=== PATIENT | female | born 1935 | race African-American/Black ===

== ENCOUNTER 2018-01-03 23:07 | Emergency (ER) | payer OTHER ==
[2018-01-03 23:44] LABS: ADD MAN DIFF? NO
[2018-01-03 23:55] LABS: BASO % 1 % (0-3); EOS # 0.3 x10^3/uL (0.0-0.7); EOS % 6 % (0-3); HEMATOCRIT 30.2 % (36.0-47.0); HEMOGLOBIN 9.6 g/dL (12.0-15.5); LYMPH # 2.4 x10^3/uL (1.0-4.8); LYMPH % 46 % (24-48); MEAN CORPUSCULAR HEMOGLOBIN 26 pg (25-35); MEAN CORPUSCULAR HGB CONC 32 g/dL (31-37); MEAN CORPUSCULAR VOLUME 81 fL (79-100); MONO # 0.5 x10^3/uL (0.0-1.1); MONO % 10 % (0-9); NEUT % 38 % (31-73); PLATELET COUNT 386 x10^3/uL (140-400); RED BLOOD COUNT 3.74 x10^6/uL (3.50-5.40); RED CELL DISTRIBUTION WIDTH 20.9 % (11.5-14.5); WHITE BLOOD COUNT 5.2 x10^3/uL (4.0-11.0)
[2018-01-03 23:56] LABS: INR 1.1 (0.8-1.1); PROTHROMBIN TIME PATIENT 13.2 SEC (11.7-14.0)
[2018-01-04] LABS: ANION GAP 12 (6-14); BLOOD UREA NITROGEN 15 mg/dL (7-20); BUN/CREATININE RATIO 17 (6-20); CALCIUM 9.4 mg/dL (8.5-10.1); CARBON DIOXIDE 27 mmol/L (21-32); CHLORIDE 105 mmol/L (98-107); CREATININE 0.9 mg/dL (0.6-1.0); GFR 72.5; GLUCOSE 123 mg/dL (70-99); SODIUM 144 mmol/L (136-145)
[2018-01-04 00:06] LABS: ALBUMIN 3.6 g/dL (3.4-5.0); ALBUMIN/GLOBULIN RATIO 0.7 (1.0-1.7); ALK PHOS 99 U/L (46-116); ALT (SGPT) 25 U/L (14-59); AST (SGOT) 24 U/L (15-37); LIPASE 74 U/L (73-393); TOTAL BILIRUBIN 0.2 mg/dL (0.2-1.0); TOTAL PROTEIN 9.1 g/dL (6.4-8.2)
[2018-01-04 00:09] LABS: TROPONINI < 0.017 ng/mL (0.000-0.055)
[2018-01-04 00:14] LABS: NT-PRO BNP 631 pg/mL (0-449)
[2018-01-04 01:16] LABS: ANISOCYTOSIS MOD; PLT ESTIMATE ADEQUATE (ADEQUATE); POLYCHROMASIA SLIGHT
[2018-01-04 02:22] LABS: TROPONINI < 0.017 ng/mL (0.000-0.055)
== END 2018-01-04 03:31 | disposition home or self-care (01) ==
LOC: ER 01-04 03:31
DX: R07.9 Chest pain, unspecified (principal); F41.9 Anxiety disorder, unspecified; I10 Essential (primary) hypertension; E11.9 Type 2 diabetes mellitus without complications; K21.9 Gastro-esophageal reflux disease without esophagitis; E78.00 Pure hypercholesterolemia, unspecified; Z95.0 Presence of cardiac pacemaker
CPT/HCPCS: 36415; 71045; 80053; 83690; 83880; 84484; 85025; 85610; 93005; 93971; 99285-25

== ENCOUNTER 2018-02-06 12:10 | Observation (INO) | payer OTHER ==
[2018-02-06 12:29] LABS: POC GLUCOSE 185 mg/dL (70-99)
[2018-02-06 12:38] LABS: ADD MAN DIFF? NO
[2018-02-06 12:40] LABS: BASE EXCESS ABG -1 mmol/L (-3-3); HCO3 ABG 24 mmol/L (21-28); PCO2 ABG 36 mmHg (35-46); PH ABG 7.43 (7.35-7.45); PO2 ABG 77 mmHg (65-108); SAT O2 ABG 93 % (92-99)
[2018-02-06 12:43] LABS: FIO2 ABG 21
[2018-02-06 12:53] LABS: ANION GAP 7 (6-14); BLOOD UREA NITROGEN 16 mg/dL (7-20); BUN/CREATININE RATIO 12 (6-20); CALCIUM 9.2 mg/dL (8.5-10.1); CARBON DIOXIDE 25 mmol/L (21-32); CHLORIDE 104 mmol/L (98-107); CREATININE 1.3 mg/dL (0.6-1.0); GFR 47.5; GLUCOSE 197 mg/dL (70-99); SODIUM 136 mmol/L (136-145)
[2018-02-06 12:59] LABS: ALBUMIN 3.3 g/dL (3.4-5.0); ALBUMIN/GLOBULIN RATIO 0.6 (1.0-1.7); ALK PHOS 76 U/L (46-116); ALT (SGPT) 13 U/L (14-59); AST (SGOT) 15 U/L (15-37); BASO % 1 % (0-3); EOS # 0.1 x10^3/uL (0.0-0.7); EOS % 2 % (0-3); HEMATOCRIT 28.8 % (36.0-47.0); HEMOGLOBIN 9.1 g/dL (12.0-15.5); INR 1.1 (0.8-1.1); LYMPH # 1.6 x10^3/uL (1.0-4.8); LYMPH % 32 % (24-48); MEAN CORPUSCULAR HEMOGLOBIN 26 pg (25-35); MEAN CORPUSCULAR HGB CONC 32 g/dL (31-37); MEAN CORPUSCULAR VOLUME 81 fL (79-100); MONO # 0.3 x10^3/uL (0.0-1.1); MONO % 6 % (0-9); NEUT # 2.9 x10^3uL (1.8-7.7); NEUT % 60 % (31-73); PLATELET COUNT 428 x10^3/uL (140-400); PROTHROMBIN TIME PATIENT 13.6 SEC (11.7-14.0); RED BLOOD COUNT 3.56 x10^6/uL (3.50-5.40); TOTAL BILIRUBIN 0.3 mg/dL (0.2-1.0); TOTAL PROTEIN 8.5 g/dL (6.4-8.2); WHITE BLOOD COUNT 4.9 x10^3/uL (4.0-11.0)
[2018-02-06 13:00] LABS: TROPONINI < 0.017 ng/mL (0.000-0.055)
[2018-02-06 13:09] LABS: NT-PRO BNP 578 pg/mL (0-449)
[2018-02-06 13:09] LABS: CKMB MASS < 0.5 ng/mL (0.0-3.6); CREATINE KINASE 80 U/L (26-192)
[2018-02-06 13:15] LABS: PHOSPHORUS 2.9 mg/dL (2.6-4.7)
[2018-02-06 13:15] LABS: MAGNESIUM 1.6 mg/dL (1.8-2.4)
[2018-02-06] MEDS: ASPIRIN CHEWABLE 81 MG TABLET. PO ×3 (13:26)
[2018-02-06] MEDS: MAGNESIUM SULFATE 1GM 100 ML IV ×3 (13:57)
[2018-02-06] MEDS: LIDO:MAALOX 1:1 20 ML SINGLE DOSE. PO ×3 (15:13)
[2018-02-06 16:11] LABS: CHOLESTEROL 116 mg/dL (0-200); HDLC 37 mg/dL (40-60); LDLC 55 mg/dL (0-100); NON-HDL CHOLESTEROL 79 mg/dL (0-129); TRIGLYCERIDES 118 mg/dL (0-150); VLDLC 24 mg/dL (0-40)
[2018-02-06 16:17] LABS: CHOLESTEROL/HDL RATIO 3.1
[2018-02-06] MEDS ORDERED: hydrALAZINE 20 MG/ML VIAL. IVP ×3 (17:00)
[2018-02-06] MEDS: ISOSORBIDE MONONITRATE ER 30 MG TAB.ER.24H PO ×3 (18:00)
[2018-02-06] MEDS: CARVEDILOL 12.5 MG TABLET. PO ×3 (18:00)
[2018-02-06 18:48] LABS: TROPONINI < 0.017 ng/mL (0.000-0.055)
[2018-02-06] MEDS ORDERED: NITROGLYCERIN SUBLINGUAL 0.4 MG BOTTLE OF 25. SL ×3 (19:45)
[2018-02-06] MEDS: ATORVASTATIN CALCIUM 10 MG TABLET. PO ×3 (20:11)
[2018-02-06] MEDS: TICAGRELOR 90 MG TABLET. PO ×3 (20:12)
[2018-02-06] MEDS: MIRTAZAPINE 15 MG TABLET PO ×3 (20:12)
[2018-02-06] MEDS: ACETAMINOPHEN 325 MG TABLET. PO ×3 (20:12)
[2018-02-06] MEDS ORDERED: SIMVASTATIN 10 MG TABLET PO ×3 (21:00)
[2018-02-06 21:13] LABS: % SAT IRON 6 % (15-34); IRON,SERUM 19 ug/dL (50-170)
[2018-02-06 21:19] LABS: FREE T4 0.78 ng/dL (0.76-1.46); TROPONINI < 0.017 ng/mL (0.000-0.055)
[2018-02-07] MEDS ORDERED: ASPIRIN CHEWABLE 81 MG TABLET. PO ×3 (09:00)
[2018-02-07] MEDS: LEVOTHYROXINE SODIUM 100 MCG in IV NORMAL SALINE 50ML 5 ML IVP ×3 (10:11)
[2018-02-07] MEDS: CARVEDILOL 12.5 MG TABLET. PO ×3 (10:12)
[2018-02-07] MEDS: LISINOPRIL 5 MG TABLET. PO ×3 (10:12)
[2018-02-07] MEDS: CITALOPRAM 20 MG TABLET. PO ×3 (10:12)
[2018-02-07] MEDS: PANTOPRAZOLE 40 MG TABLET.DR. PO ×3 (10:12)
[2018-02-07] MEDS: ASPIRIN ENTERIC COATED 81 MG TABLET.DR. PO ×3 (10:12)
[2018-02-07] MEDS: TICAGRELOR 90 MG TABLET. PO ×3 (10:13)
[2018-02-07] MEDS: VERAPAMIL SR 120 MG TABLET.ER. PO ×3 (10:13)
[2018-02-07] MEDS: metFORMIN 500 MG TABLET PO ×3 (10:13)
[2018-02-07] MEDS: ISOSORBIDE MONONITRATE ER 30 MG TAB.ER.24H PO ×3 (10:13)
[2018-02-07] MEDS: DOCUSATE SODIUM 100 MG CAPSULE. PO ×3 (11:29)
== END 2018-02-07 12:02 | disposition home or self-care (01) ==
LOC: ER 12:10 → 5 NORTH 14:30
PROVIDERS: Family Medicine
DX: R07.89 Other chest pain (principal); I25.10 Atherosclerotic heart disease of native coronary artery without angina pectoris; I10 Essential (primary) hypertension; E78.5 Hyperlipidemia, unspecified; K21.9 Gastro-esophageal reflux disease without esophagitis; F32.9 Major depressive disorder, single episode, unspecified; M19.90 Unspecified osteoarthritis, unspecified site; I65.23 Occlusion and stenosis of bilateral carotid arteries; E11.9 Type 2 diabetes mellitus without complications; E83.42 Hypomagnesemia; E03.9 Hypothyroidism, unspecified; E66.01 Morbid (severe) obesity due to excess calories; Z79.82 Long term (current) use of aspirin; Z88.8 Allergy status to other drugs, medicaments and biological substances; Z68.38 Body mass index [BMI] 38.0-38.9, adult; Z95.0 Presence of cardiac pacemaker
CPT/HCPCS: 36415; 36600; 70450; 71045; 80053; 80061; 82553; 82805; 82962; 83540; 83550; 83735; 83880; 84100; 84439; 84443; 84484; 85025; 85610; 93005; 93306; 93880; 96365; 96375; 99285-25; G0378; G0379; J2060; J3475

== ENCOUNTER → 2018-02-19 | Outpatient (CLI) | payer OTHER ==
[2018-02-07 10:58] VITALS: BP 132/84
[~2018-02-19] MED LIST: ASPI-630 PO; CARV12.52 PO; ESCITALOPRAM OX10 MG PO; FERR325T14 PO; ISOS30TA4 PO; LISI-338 PO; LOVA40TA2 PO; METF500T16 PO; MIRT30TA3 PO; NITR0.4T SL; PANT20TA2 PO; SIMV10TA3 PO; TICA90TA PO; VERA240C2 PO
== END | disposition home or self-care (01) ==
LOC: PCVCCLINIC 14:16
PROVIDERS: ATTEND Internal Medicine
DX: I25.10 Atherosclerotic heart disease of native coronary artery without angina pectoris (principal); R06.00 Dyspnea, unspecified; I10 Essential (primary) hypertension; Z95.0 Presence of cardiac pacemaker; Z79.82 Long term (current) use of aspirin; Z79.899 Other long term (current) drug therapy; Z79.84 Long term (current) use of oral hypoglycemic drugs
CPT/HCPCS: G0463

== ENCOUNTER 2021-04-21 12:31 | Inpatient (IN) | payer OTHER ==
[~2021-04-21] VITALS: Ht 160 cm; Wt 74.6 kg
[~2021-04-21 12:31] MED LIST changes: +CARV12.511 PO; -CARV12.52 PO; -ISOS30TA4 PO; +ISOS30TA68 PO; -LISI-338 PO; +LISI-517 PO; +MIRT-8 PO; -MIRT30TA3 PO; -NITR0.4T SL; +NITR0.4T24 SL; +SIMV10TA15 PO; -SIMV10TA3 PO
[2021-04-21 13:00] LABS: BASO % 1 % (0-3); EOS # 0.2 x10^3/uL (0.0-0.7); EOS % 5 % (0-3); HEMATOCRIT 35.6 % (36.0-47.0); HEMOGLOBIN 11.9 g/dL (12.0-15.5); LYMPH # 2.7 x10^3/uL (1.0-4.8); LYMPH % 51 % (24-48); MEAN CORPUSCULAR HEMOGLOBIN 30 pg (25-35); MEAN CORPUSCULAR HGB CONC 33 g/dL (31-37); MEAN CORPUSCULAR VOLUME 91 fL (79-100); MONO # 0.5 x10^3/uL (0.0-1.1); MONO % 9 % (0-9); NEUT # 1.8 x10^3/uL (1.8-7.7); NEUT % 35 % (31-73); PLATELET COUNT 227 x10^3/uL (140-400); RED BLOOD COUNT 3.91 x10^6/uL (3.50-5.40); RED CELL DISTRIBUTION WIDTH 16.3 % (11.5-14.5); WHITE BLOOD COUNT 5.3 x10^3/uL (4.0-11.0)
--- NOTE | 2021-04-21 13:04 | RAD ---
EXAM: Head CT without contrast. HISTORY: Slurred speech. Altered mental status. Code stroke. TECHNIQUE: Computed tomographic images of the head were obtained without contrast. *One or more of the following individualized dose reduction techniques were utilized for this examina tion: 1. Automated exposure control. 2. Adjustment of the mA and/or kV according to patient size. 3. Use of iterative reconstruction technique. COMPARISON: 02/06/2018. FINDINGS: There is no acute or subacute extra-axial or intraparenchymal hemorrhage. There is no mass effect or midline shift. There is no hydrocephalus. There are areas of decreased attenuation within the cerebral white matter, nonspecific and likely rel ated to chronic small vessel disease. There is cerebral volume loss. The visualized portions of the orbits, paranasal sinuses and mastoid air cells are unremarkable. No s uspicious calvarial lesion is seen. There is a stable likely empty or partially empty prominent sella . IMPRESSION: 1. No acute intracranial finding. Note is made that MRI is more sensitive for acute infarction. 2. Bilateral cerebral white matter changes, most commonly due to chronic small vessel disease in ileana ents of this age. 3. Cerebral volume loss. Findings were discussed with Dr. Cook in the ED at 1300 hours on 04/21/2021. FOR INTERNAL CODING PURPOSES RESULT CODE: (C) Electronically signed by: Debi Bryson MD (04/21/2021 1:01 PM) [id number]
[2021-04-21 13:13] LABS: CALCIUM 9.9 mg/dL (8.5-10.1); CREATININE 1.4 mg/dL (0.6-1.0); GFR 43.2; PROTHROMBIN TIME PATIENT 13.5 SEC (11.7-14.0)
[2021-04-21 13:18] LABS: ALBUMIN 3.4 g/dL (3.4-5.0); ALBUMIN/GLOBULIN RATIO 0.7 (1.0-1.7); TOTAL BILIRUBIN 0.3 mg/dL (0.2-1.0); TOTAL PROTEIN 8.3 g/dL (6.4-8.2)
--- NOTE | 2021-04-21 13:25 | PHYS DOC ---
Past Medical History Past Medical History: Anxiety, CAD, Depression, Diabetes-Type II, GERD, High Cholesterol, Hypertension, Other Additional Past Medical Histor: constipation Past Surgical History: Other Additional Past Surgical Histo: pacemaker, cardiac stents Smoking Status: Never Smoker Alcohol Use: None Drug Use: None General Adult EDM: Chief Complaint: ALTERED MENTAL STATUS HPI: HPI: Patient is a 85 year old female who was brought here by her daughter for evaluation not able to speak , confusion started at 11:30 AM. Her daughter stated that patient was on the phone talking normally, laughing, saying that her brother is dying because he was admitted to the hospital lately due to head injury. Patient was then crying, then not able to talk when her daughter asked her a question. She was trying to speak but she was just not able to get the words out. Patient's daughter then brought her here by private vehicle for evaluation. Patient was walking to her car on her power. 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 Patient then had a bleeding CVA in 2019. Patient has history of coronary artery disease, she is on Plavix. No injury today. Patient's daughter said she was urinating on herself. Review of Systems: Review of Systems: Not able to evaluate due to her condition. Heart Score: C/O Chest Pain: N/A Risk Factors: Risk Factors: DM, Current or recent (<one month) smoker, HTN, HLP, family history of CAD, obesity. Risk Scores: Score 0 - 3: 2.5% MACE over next 6 weeks - Discharge Home Score 4 - 6: 20.3% MACE over next 6 weeks - Admit for Clinical Observation Score 7 - 10: 72.7% MACE over next 6 weeks - Early Invasive Strategies Allergies: Allergies: Allergies Coded Allergies Type Severity Reaction Last Updated Verified morphine Adverse Reaction Mild NAUSEA/VOMITING 02/06/18 Yes Physical Exam: PE: Constitutional: Well developed, well nourished, no acute distress, non-toxic appearance. [] HENT: Normocephalic, atraumatic, bilateral external ears normal, oropharynx moist, no oral exudates, nose normal. [] Eyes: PERRLA, EOMI, conjunctiva normal, no discharge. [] Neck: Normal range of motion, no tenderness, supple, no stridor. [] Cardiovascular:Heart rate regular rhythm, no murmur [] Lungs & Thorax: Bilateral breath sounds clear to auscultation [] Abdomen: Bowel sounds normal, soft, no tenderness, no masses, no pulsatile masses. [] Skin: Warm, dry, no erythema, no rash. [] Back: No tenderness, no CVA tenderness. [] Extremities: No tenderness, no cyanosis, no clubbing, ROM intact, no edema. [] Neurologic: patient was awake, alert, moving all extremities but appeared weaker on the left side. Patient was not able to speak, was trying to speak not able to get the words out. Psychologic: patient was tearful. Current Patient Data: Labs: Laboratory Tests Test 04/21/21 12:39 04/21/21 12:55 Glucose (Fingerstick) 223 mg/dL (70-99) H White Blood Count 5.3 x10^3/uL (4.0-11.0) Red Blood Count 3.91 x10^6/uL (3.50-5.40) Hemoglobin 11.9 g/dL (12.0-15.5) L Hematocrit 35.6 % (36.0-47.0) L Mean Corpuscular Volume 91 fL (79-100) Mean Corpuscular Hemoglobin 30 pg (25-35) Mean Corpuscular Hemoglobin Concent 33 g/dL (31-37) Red Cell Distribution Width 16.3 % (11.5-14.5) H Platelet Count 227 x10^3/uL (140-400) Neutrophils (%) (Auto) 35 % (31-73) Lymphocytes (%) (Auto) 51 % (24-48) H Monocytes (%) (Auto) 9 % (0-9) Eosinophils (%) (Auto) 5 % (0-3) H Basophils (%) (Auto) 1 % (0-3) Neutrophils # (Auto) 1.8 x10^3/uL (1.8-7.7) Lymphocytes # (Auto) 2.7 x10^3/uL (1.0-4.8) Monocytes # (Auto) 0.5 x10^3/uL (0.0-1.1) Eosinophils # (Auto) 0.2 x10^3/uL (0.0-0.7) Basophils # (Auto) 0.0 x10^3/uL (0.0-0.2) Prothrombin Time 13.5 SEC (11.7-14.0) Prothrombin Time INR 1.0 (0.8-1.1) Activated Partial Thromboplast Time 26 SEC (24-38) Sodium Level 140 mmol/L (136-145) Potassium Level 4.0 mmol/L (3.5-5.1) Chloride Level 102 mmol/L (98-107) Carbon Dioxide Level 29 mmol/L (21-32) Anion Gap 9 (6-14) Blood Urea Nitrogen 22 mg/dL (7-20) H Creatinine 1.4 mg/dL (0.6-1.0) H Estimated GFR (Cockcroft-Gault) 43.2 BUN/Creatinine Ratio 16 (6-20) Glucose Level 231 mg/dL (70-99) H Calcium Level 9.9 mg/dL (8.5-10.1) Magnesium Level 2.0 mg/dL (1.8-2.4) Total Bilirubin 0.3 mg/dL (0.2-1.0) Aspartate Amino Transferase (AST) 16 U/L (15-37) Alanine Aminotransferase (ALT) 18 U/L (14-59) Alkaline Phosphatase 76 U/L (46-116) Total Protein 8.3 g/dL (6.4-8.2) H Albumin 3.4 g/dL (3.4-5.0) Albumin/Globulin Ratio 0.7 (1.0-1.7) L Laboratory Tests 04/21/21 12:55 Laboratory Tests 04/21/21 12:55 Vital Signs: Vital Signs Date Time Temp Pulse Resp B/P (MAP) Pulse Ox O2 Delivery O2 Flow Rate FiO2 04/21/21 12:32 98.4 60 16 203/101 (135) 99 Room Air 98.4 EKG: EKG: EKG was done at 1244, heart rate of 64 bpm, sinus rhythm, no ST segment elevation Radiology/Procedures: Radiology/Procedures: [][facility] [address] [place], [place] [id number] IMAGING REPORT Signed PATIENT: RANDY RUSH ACCOUNT: [id number] : 1935 LOCATION: ER AGE: 85 SEX: F EXAM STATUS: PRE ER ORD. PHYSICIAN: VALERY LEYVA DO REASON: AMS, SLURRED SPEECH PROCEDURE: CT CODE STROKE HEAD WO EXAM: Head CT without contrast. HISTORY: Slurred speech. Altered mental status. Code stroke. TECHNIQUE: Computed tomographic images of the head were obtained without contrast. *One or more of the following individualized dose reduction techniques were utilized for this examination: 1. Automated exposure control. 2. Adjustment of the mA and/or kV according to patient size. 3. Use of iterative reconstruction technique. COMPARISON: 02/06/2018. FINDINGS: There is no acute or subacute extra-axial or intraparenchymal hemorrhage. There is no mass effect or midline shift. There is no hydrocephalus. There are areas of decreased attenuation within the cerebral white matter, nonspecific and likely related to chronic small vessel disease. There is cerebral volume loss. The visualized portions of the orbits, paranasal sinuses and mastoid air cells are unremarkable. No suspicious calvarial lesion is seen. There is a stable likely empty or partially empty prominent sella. IMPRESSION: 1. No acute intracranial finding. Note is made that MRI is more sensitive for acute infarction. 2. Bilateral cerebral white matter changes, most commonly due to chronic small vessel disease in patients of this age. 3. Cerebral volume loss. Findings were discussed with Dr. Leyva in the ED at 1300 hours on 04/21/2021. FOR INTERNAL CODING PURPOSES RESULT CODE: (C) Electronically signed by: Debi Riley MD (04/21/2021 1:01 PM) [id number] DICTATED and SIGNED BY: DEBI RILEY MD DATE: 04/21/21 [id number] 0 Course & Med Decision Making: Course & Med Decision Making Pertinent Labs and Imaging studies reviewed. (See chart for details) Patient is an 85-year-old female who was brought here by her daughter for ev aluation of confusion and slurred speech started at 11:[address] scan of the head did not show any acute problem. Patient is allergic to IV contrast denies any fall we cannot perform CT angio of the head and neck. Patient also had a pacemaker and therefore we cannot do MRI of brain. I consulted the neurologist on-call Dr. Dusty Pedraza who came to ER at 1:10 PM to evaluate the patient. After their evaluation, Dr. Pedraza recommended IV TPA for this patient. Patient's daughter was given the risks and benefits of medication by Dr. Pedraza and myself. She agreed to proceed with IV medication. Discussed with the hospitalist on-call Dr. Jaxon Herrear who agreed to admit the patient. Due to a high probability of clinically significant, life-threatening deterioration, the patient required my highest level of preparedness to intervene emergently and I personally spent this critical care time directly and personally managing the patient. This critical care time included obtaining the history; examining the patient; pulse oximetry; real-time ordering and review of studies; arranging urgent treatment with development of a management plan; evaluation of patient's response to treatment; frequent reassessment; and, discussions with other providers. This critical care time was performed to assess and manage the high probability of imminent, life-threatening deterioration that could result in multi-organ failure. It was not inclusive of separately billable procedures. Please see the Course and Medical Decision Making section and the rest of the note for further information on patient assessment and treatment. Critical care time was [30] minutes which includes time at bedside, spent in discussion of patient's care with specialist and/or family members, with interpretation of laboratory and/or radiological studies and is exclusive of procedures. Dragon Disclaimer: Marguerite Disclaimer: This electronic medical record was generated, in whole or in part, using a voice recognition dictation system. Departure Departure Impression: Primary Impression: Acute CVA (cerebrovascular accident) Disposition: ADMITTED INPATIENT Admitting Physician: JAYSONS (DR. HERRERA) Condition: STABLE Referrals: J LUIS CHAVEZ MD (PCP) VALERY LEYVA DO Apr 21, 2021 13:25
[2021-04-21] MEDS ORDERED: ALTEPLASE 7.5 MG IV ONE (13:30)
[2021-04-21] MEDS ORDERED: ALTEPLASE IV SCH (13:30)
[2021-04-21] MEDS ORDERED: ONDANSETRON PF 4 MG/2 ML VIAL. IVP PRN ×2 (13:45→15:00)
[2021-04-21] MEDS ORDERED: ACETAMINOPHEN 650 MG SUPP.RECT. PR PRN (13:45)
[2021-04-21] MEDS ORDERED: LABETALOL 20 MG/4 ML DISP.SYRIN. IVP PRN (13:45)
--- NOTE | 2021-04-21 14:16 | PDOC2 ---
NEUROLOGY CONSULT Date of Service DOS: DATE: 04/21/21 TIME: 14:04 Reason for Consult Reason for Consult: Stroke Source Source: Caregiver (Daughter), Chart review History of Present Illness History of Present Illness The patient is an 85-year-old right-handed female last known normal 1130. Patient has been somewhat upset about her brother who had a cerebral hemorrhage but actually is doing well, daughter says. Patient suddenly stopped talking, had a blank look on her face. There was no seizure activity. Patient has a history of stroke in 2006 as well as a hemorrhagic stroke in 2018, from which she made a full recovery. Patient has continued to have expressive aphasia. She cries when she tries to talk. She has not lost consciousness or had any incontinence. Past Medical History Cardiovascular: CAD, HTN, Hyperlipidemia GI: GERD Psych: Anxiety Endocrine: Diabetes Past Surgical History Past Surgical History: Pacemaker Family History Family History: CVA Social History Social History , no tobacco or alcohol Current Medications Current Medications Current Medications Alteplase, Recombinant 7.5 ml @ 450 mls/hr 1X ONCE IV Last administered on 04/21/21at 13:34; Start 04/21/21 at 13:30; Stop 04/21/21 at 13:31; Status DC Alteplase, Recombinant 68 ml @ 68 mls/hr Q1H IV Last administered on 04/21/21at 13:38; Start 04/21/21 at 13:30; Stop 04/21/21 at 14:29 Sodium Chloride 50 ml @ 200 mls/hr 1X ONCE IV ; Start 04/21/21 at 14:30; Stop 04/21/21 at 14:44 Labetalol HCl (Normodyne Iv Push) 10 mg PRN Q10MIN PRN IVP HYPERTENSION; Start 04/21/21 at 13:45 Nicardipine HCl 50 mg/Sodium Chloride 250 ml @ 25 mls/hr CONT PRN PRN IV HYPERTENSION; Start 04/21/21 at 13:45 Acetaminophen (Tylenol) 650 mg PRN Q6HRS PRN PO MILD PAIN / TEMP > 100.3'F; Start 04/21/21 at 13:45 Acetaminophen (Tylenol Supp) 650 mg PRN Q6HRS PRN CT MILD PAIN / TEMP > 100.3'F; Start 04/21/21 at 13:45 Ondansetron HCl (Zofran) 4 mg PRN Q6HRS PRN IVP NAUSEA/VOMITING; Start 04/21/21 at 13:45 Active Scripts Active Ferrous Sulfate 325 Mg Tablet 1 Tab PO DAILY Reported Lovastatin 40 Mg Tablet 1 Tab PO DAILY Nitrostat (Nitroglycerin) 0.4 Mg Tab.subl 1 Tab SL UD Verapamil Er (Verapamil Hcl) 240 Mg Cap24h.pel 1 Cap PO DAILY Isosorbide Mononitrate Er (Isosorbide Mononitrate) 30 Mg Tab.er.24h 1 Tab PO DAILY Aspirin 81 Mg Tab.chew 1 Tab PO DAILY Protonix (Pantoprazole Sodium) 20 Mg Tablet.dr 1 Tab PO DAILY Brilinta (Ticagrelor) 90 Mg Tablet 90 Mg PO Carvedilol 12.5 Mg Tablet 1 Tab PO BID Mirtazapine 30 Mg Tablet 1 Tab PO QHS Lisinopril 5 Mg Tablet 1 Tab PO DAILY Escitalopram Oxalate 10 Mg Tablet 1 Tab PO DAILY Metformin Hcl 500 Mg Tablet 500 Mg PO BIDWMEALS Allergies Allergies: Coded Allergies: Iodinated Contrast Media (Verified Allergy, Severe, ANAPHYLAXIS, 04/21/21) morphine (Verified Adverse Reaction, Mild, NAUSEA/VOMITING, 02/06/18) ROS Review of System Negative for fever, chills, weight loss, shortness of breath, chest pain, indigestion, hematochezia, melena, and dysuria. Full 14-point review of systems is negative. Physical Exam Physical Examination General: Well-developed, well-nourished black female in no acute distress HEENT: Normocephalic andatraumatic. Temporal arteriespulsatile and nontender. Neck: Supple without bruit, no meningismus Musculoskeletal: Stability:see neurologic. Gait exam:see neurologic. Tone:see neurologic.Strength:see neurologic. Neurological: Mental Status: orientation, memory, attention span/concentration, language, fund of knowledge: expressive more than receptive aphasia. Cranial Nerves:Pupils equal and reactive to light, extraocular movements areintact, visual polk are full to confrontation. Facial sensation is normal. There is no facial asymmetry. Vestibulo-ocular reflex is intact. Palate elevates and tongue protrudes in midline. All other cranial related problems are negative except as mentioned before.Reflexes:2+ and symmetric with flexor plantar responses. Motor:3-4/5, she is weaker on the right with normal tone and bulk. Coordination and gait:not cooperative. Sensory:Responds to pinprick in all 4 extremities Vitals VITALS Vital Signs Date Time Temp Pulse Resp B/P (MAP) Pulse Ox O2 Delivery O2 Flow Rate FiO2 04/21/21 13:49 60 12 130/62 (84) 98 Room Air 04/21/21 12:32 98.4 98.4 Labs Labs Laboratory Tests Test 04/21/21 12:39 04/21/21 12:55 Glucose (Fingerstick) 223 mg/dL (70-99) White Blood Count 5.3 x10^3/uL (4.0-11.0) Red Blood Count 3.91 x10^6/uL (3.50-5.40) Hemoglobin 11.9 g/dL (12.0-15.5) Hematocrit 35.6 % (36.0-47.0) Mean Corpuscular Volume 91 fL (79-100) Mean Corpuscular Hemoglobin 30 pg (25-35) Mean Corpuscular Hemoglobin Concent 33 g/dL (31-37) Red Cell Distribution Width 16.3 % (11.5-14.5) Platelet Count 227 x10^3/uL (140-400) Neutrophils (%) (Auto) 35 % (31-73) Lymphocytes (%) (Auto) 51 % (24-48) Monocytes (%) (Auto) 9 % (0-9) Eosinophils (%) (Auto) 5 % (0-3) Basophils (%) (Auto) 1 % (0-3) Neutrophils # (Auto) 1.8 x10^3/uL (1.8-7.7) Lymphocytes # (Auto) 2.7 x10^3/uL (1.0-4.8) Monocytes # (Auto) 0.5 x10^3/uL (0.0-1.1) Eosinophils # (Auto) 0.2 x10^3/uL (0.0-0.7) Basophils # (Auto) 0.0 x10^3/uL (0.0-0.2) Prothrombin Time 13.5 SEC (11.7-14.0) Prothromb Time International Ratio 1.0 (0.8-1.1) Activated Partial Thromboplast Time 26 SEC (24-38) Sodium Level 140 mmol/L (136-145) Potassium Level 4.0 mmol/L (3.5-5.1) Chloride Level 102 mmol/L (98-107) Carbon Dioxide Level 29 mmol/L (21-32) Anion Gap 9 (6-14) Blood Urea Nitrogen 22 mg/dL (7-20) Creatinine 1.4 mg/dL (0.6-1.0) Estimated GFR (Cockcroft-Gault) 43.2 BUN/Creatinine Ratio 16 (6-20) Glucose Level 231 mg/dL (70-99) Calcium Level 9.9 mg/dL (8.5-10.1) Magnesium Level 2.0 mg/dL (1.8-2.4) Total Bilirubin 0.3 mg/dL (0.2-1.0) Aspartate Amino Transf (AST/SGOT) 16 U/L (15-37) Alanine Aminotransferase (ALT/SGPT) 18 U/L (14-59) Alkaline Phosphatase 76 U/L (46-116) Troponin I Quantitative < 0.017 ng/mL (0.000-0.055) Total Protein 8.3 g/dL (6.4-8.2) Albumin 3.4 g/dL (3.4-5.0) Albumin/Globulin Ratio 0.7 (1.0-1.7) Laboratory Tests Test 04/21/21 12:39 04/21/21 12:55 Glucose (Fingerstick) 223 mg/dL (70-99) White Blood Count 5.3 x10^3/uL (4.0-11.0) Red Blood Count 3.91 x10^6/uL (3.50-5.40) Hemoglobin 11.9 g/dL (12.0-15.5) Hematocrit 35.6 % (36.0-47.0) Mean Corpuscular Volume 91 fL (79-100) Mean Corpuscular Hemoglobin 30 pg (25-35) Mean Corpuscular Hemoglobin Concent 33 g/dL (31-37) Red Cell Distribution Width 16.3 % (11.5-14.5) Platelet Count 227 x10^3/uL (140-400) Neutrophils (%) (Auto) 35 % (31-73) Lymphocytes (%) (Auto) 51 % (24-48) Monocytes (%) (Auto) 9 % (0-9) Eosinophils (%) (Auto) 5 % (0-3) Basophils (%) (Auto) 1 % (0-3) Neutrophils # (Auto) 1.8 x10^3/uL (1.8-7.7) Lymphocytes # (Auto) 2.7 x10^3/uL (1.0-4.8) Monocytes # (Auto) 0.5 x10^3/uL (0.0-1.1) Eosinophils # (Auto) 0.2 x10^3/uL (0.0-0.7) Basophils # (Auto) 0.0 x10^3/uL (0.0-0.2) Prothrombin Time 13.5 SEC (11.7-14.0) Prothromb Time International Ratio 1.0 (0.8-1.1) Activated Partial Thromboplast Time 26 SEC (24-38) Sodium Level 140 mmol/L (136-145) Potassium Level 4.0 mmol/L (3.5-5.1) Chloride Level 102 mmol/L (98-107) Carbon Dioxide Level 29 mmol/L (21-32) Anion Gap 9 (6-14) Blood Urea Nitrogen 22 mg/dL (7-20) Creatinine 1.4 mg/dL (0.6-1.0) Estimated GFR (Cockcroft-Gault) 43.2 BUN/Creatinine Ratio 16 (6-20) Glucose Level 231 mg/dL (70-99) Calcium Level 9.9 mg/dL (8.5-10.1) Magnesium Level 2.0 mg/dL (1.8-2.4) Total Bilirubin 0.3 mg/dL (0.2-1.0) Aspartate Amino Transf (AST/SGOT) 16 U/L (15-37) Alanine Aminotransferase (ALT/SGPT) 18 U/L (14-59) Alkaline Phosphatase 76 U/L (46-116) Troponin I Quantitative < 0.017 ng/mL (0.000-0.055) Total Protein 8.3 g/dL (6.4-8.2) Albumin 3.4 g/dL (3.4-5.0) Albumin/Globulin Ratio 0.7 (1.0-1.7) Images Images ead CT without contrast. HISTORY: Slurred speech. Altered mental status. Code stroke. TECHNIQUE: Computed tomographic images of the head were obtained without contrast. *One or more of the following individualized dose reduction techniques were u tilized for this examination: 1. Automated exposure control. 2. Adjustment of the mA and/or kV according to patient size. 3. Use of iterative reconstruction technique. COMPARISON: 02/06/2018. FINDINGS: There is no acute or subacute extra-axial or intraparenchymal hemorrhage. There is no mass effect or midline shift. There is no hydrocephalus. There are areas of decreased attenuation within the cerebral white matter, nonspecific and likely related to chronic small vessel disease. There is cerebral volume loss. The visualized portions of the orbits, paranasal sinuses and mastoid air cells are unremarkable. No suspicious calvarial lesion is seen. There is a stable likely empty or partially empty prominent sella. IMPRESSION: 1. No acute intracranial finding. Note is made that MRI is more sensitive for acute infarction. 2. Bilateral cerebral white matter changes, most commonly due to chronic small vessel disease in patients of this age. 3. Cerebral volume loss. Assessment/Plan Assessment/Plan Impression: Acute left hemispheric stroke with expressive aphasia and some mild hemiparesis. Prior history of hemorrhagic stroke as well as bland infarct Hypertension Recommendations: I discussed risk, benefits, alternatives, and side effects with the patient and her daughter. There is a family history of hemorrhagic stroke. The patient also had a hemorrhagic stroke herself. Patient is well within the 3-hour window. We cannot do a CT angiogram because of contrast dye allergy, I believe the risks outweigh the benefits. In addition, we cannot do an MRI at this hospital because our temporary MRI scanner is not capable of taking care of patients after pacemaker with telemetry. I believe the best course is to go a head with alteplase. Clinically this is a rather small stroke so the risk of hemorrhage should be lower. I doubt that there is large vessel occlusion that requires transfer to a tertiary center, where again they would have problems doing contrast dye radiographic studies. Daughter is agreeable to administering alteplase I will check carotid Doppler studies Repeat head CT tomorrow ICU monitoring for 24 hours Also see stroke orders Also discussed with Dr. Cook Thank you for letting me help with the patient's care. BO MARROQUIN MD Apr 21, 2021 14:16
[2021-04-21 14:27] LABS: CHOLESTEROL/HDL RATIO 2.9
[2021-04-21] MEDS ORDERED: IV NORMAL SALINE 50ML IV ONE (14:30)
--- NOTE | 2021-04-21 14:42 | PDOC1 ---
History and Physical Date of Admission Date of Admission DATE: 04/21/21 TIME: 14:32 Identification/Chief Complaint Chief Complaint Code stroke Source Source: Caregiver, Chart review History of Present Illness History of Present Illness Patient is 85-year-old female with past medical history hemorrhagic CVA, [place], CAD, DM 2, HTN, HLD, presents to the ED after sudden onset altered mental status noted by her family this morning. Brought to the ED by daughter who stated that she was confused and unable to speak; reportedly trying to speak but was able to get words out. 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 Labs on admission showed hemoglobin 11.9, hematocrit 35.6, BUN 22, creatinine 1.4, CBG 231, troponin <0.017. CT head on admission showed no acute intracranial finding, bilateral cerebral white matter changes due to chronic small vessel disease, cerebral volume loss. NIH score 10. Patient's daughter notes anaphylactic allergy to contrast dye. 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 Neurology was consulted in the ED and recommended tPA. Will admit patient to ICU for further medical management. Past Medical History Cardiovascular: CAD, HTN, Hyperlipidemia GI: GERD Psych: Anxiety Musculoskeletal: Osteoarthritis Endocrine: Diabetes Past Surgical History Past Surgical History: Pacemaker Family History Family History: High Cholestrol, Stroke Family History: Parent Social History ALCOHOL: none Drugs: None Current Problem List Problem List Problems Medical Problems: (1) Acute CVA (cerebrovascular accident) Status: Acute Current Medications Current Medications Current Medications Alteplase, Recombinant 7.5 ml @ 450 mls/hr 1X ONCE IV Last administered on 04/21/21at 13:34; Start 04/21/21 at 13:30; Stop 04/21/21 at 13:31; Status DC Alteplase, Recombinant 68 ml @ 68 mls/hr Q1H IV Last administered on 04/21/21at 13:38; Start 04/21/21 at 13:30; Stop 04/21/21 at 14:29; Status DC Sodium Chloride 50 ml @ 200 mls/hr 1X ONCE IV ; Start 04/21/21 at 14:30; Stop 04/21/21 at 14:44 Labetalol HCl (Normodyne Iv Push) 10 mg PRN Q10MIN PRN IVP HYPERTENSION; Start 04/21/21 at 13:45 Nicardipine HCl 50 mg/Sodium Chloride 250 ml @ 25 mls/hr CONT PRN PRN IV HYPERTENSION; Start 04/21/21 at 13:45 Acetaminophen (Tylenol) 650 mg PRN Q6HRS PRN PO MILD PAIN / TEMP > 100.3'F; Start 04/21/21 at 13:45 Acetaminophen (Tylenol Supp) 650 mg PRN Q6HRS PRN MI MILD PAIN / TEMP > 100.3'F; Start 04/21/21 at 13:45 Ondansetron HCl (Zofran) 4 mg PRN Q6HRS PRN IVP NAUSEA/VOMITING; Start 04/21/21 at 13:45 Active Scripts Active Ferrous Sulfate 325 Mg Tablet 1 Tab PO DAILY Reported Lovastatin 40 Mg Tablet 1 Tab PO DAILY Nitrostat (Nitroglycerin) 0.4 Mg Tab.subl 1 Tab SL UD Verapamil Er (Verapamil Hcl) 240 Mg Cap24h.pel 1 Cap PO DAILY Isosorbide Mononitrate Er (Isosorbide Mononitrate) 30 Mg Tab.er.24h 1 Tab PO SHIRLEY LY Aspirin 81 Mg Tab.chew 1 Tab PO DAILY Protonix (Pantoprazole Sodium) 20 Mg Tablet.dr 1 Tab PO DAILY Brilinta (Ticagrelor) 90 Mg Tablet 90 Mg PO Carvedilol 12.5 Mg Tablet 1 Tab PO BID Mirtazapine 30 Mg Tablet 1 Tab PO QHS Lisinopril 5 Mg Tablet 1 Tab PO DAILY Escitalopram Oxalate 10 Mg Tablet 1 Tab PO DAILY Metformin Hcl 500 Mg Tablet 500 Mg PO BIDWMEALS Allergies Allergies: Coded Allergies: Iodinated Contrast Media (Verified Allergy, Severe, ANAPHYLAXIS, 04/21/21) morphine (Verified Adverse Reaction, Mild, NAUSEA/VOMITING, 02/06/18) ROS Review of System Unable to obtain due to clinical condition Physical Exam Physical Exam General: Alert, Cooperative, moderate distress HEENT: PERRLA, EOMI Lungs: Clear to auscultation, Normal air movement Heart: RRR, no murmurs. Pacemaker to right chest wall. Cardiovascular: S1, S2 Abdomen: Normal bowel sounds, Soft, No tenderness Extremities: No clubbing, No cyanosis Skin: No rashes, No significant lesion Neuro: Strength left upper and left lower extremity 2/5. Strength right upper and right lower extremity 3/5. Aphasic. Normal tone, Sensation intact Psych/Mental Status: Mental status NL, Mood NL Vitals Vitals Vital Signs Date Time Temp Pulse Resp B/P (MAP) Pulse Ox O2 Delivery O2 Flow Rate FiO2 04/21/21 14:04 58 10 92/51 (65) 97 Room Air 04/21/21 12:32 98.4 98.4 Labs Labs Laboratory Tests Test 04/21/21 12:39 04/21/21 12:55 Glucose (Fingerstick) 223 mg/dL (70-99) White Blood Count 5.3 x10^3/uL (4.0-11.0) Red Blood Count 3.91 x10^6/uL (3.50-5.40) Hemoglobin 11.9 g/dL (12.0-15.5) Hematocrit 35.6 % (36.0-47.0) Mean Corpuscular Volume 91 fL (79-100) Mean Corpuscular Hemoglobin 30 pg (25-35) Mean Corpuscular Hemoglobin Concent 33 g/dL (31-37) Red Cell Distribution Width 16.3 % (11.5-14.5) Platelet Count 227 x10^3/uL (140-400) Neutrophils (%) (Auto) 35 % (31-73) Lymphocytes (%) (Auto) 51 % (24-48) Monocytes (%) (Auto) 9 % (0-9) Eosinophils (%) (Auto) 5 % (0-3) Basophils (%) (Auto) 1 % (0-3) Neutrophils # (Auto) 1.8 x10^3/uL (1.8-7.7) Lymphocytes # (Auto) 2.7 x10^3/uL (1.0-4.8) Monocytes # (Auto) 0.5 x10^3/uL (0.0-1.1) Eosinophils # (Auto) 0.2 x10^3/uL (0.0-0.7) Basophils # (Auto) 0.0 x10^3/uL (0.0-0.2) Prothrombin Time 13.5 SEC (11.7-14.0) Prothromb Time International Ratio 1.0 (0.8-1.1) Activated Partial Thromboplast Time 26 SEC (24-38) Sodium Level 140 mmol/L (136-145) Potassium Level 4.0 mmol/L (3.5-5.1) Chloride Level 102 mmol/L (98-107) Carbon Dioxide Level 29 mmol/L (21-32) Anion Gap 9 (6-14) Blood Urea Nitrogen 22 mg/dL (7-20) Creatinine 1.4 mg/dL (0.6-1.0) Estimated GFR (Cockcroft-Gault) 43.2 BUN/Creatinine Ratio 16 (6-20) Glucose Level 231 mg/dL (70-99) Calcium Level 9.9 mg/dL (8.5-10.1) Magnesium Level 2.0 mg/dL (1.8-2.4) Total Bilirubin 0.3 mg/dL (0.2-1.0) Aspartate Amino Transf (AST/SGOT) 16 U/L (15-37) Alanine Aminotransferase (ALT/SGPT) 18 U/L (14-59) Alkaline Phosphatase 76 U/L (46-116) Troponin I Quantitative < 0.017 ng/mL (0.000-0.055) Total Protein 8.3 g/dL (6.4-8.2) Albumin 3.4 g/dL (3.4-5.0) Albumin/Globulin Ratio 0.7 (1.0-1.7) Triglycerides Level 125 mg/dL (0-150) Cholesterol Level 144 mg/dL (0-200) LDL Cholesterol, Calculated 70 mg/dL (0-100) VLDL Cholesterol, Calculated 25 mg/dL (0-40) Non-HDL Cholesterol Calculated 95 mg/dL (0-129) HDL Cholesterol 49 mg/dL (40-60) Cholesterol/HDL Ratio 2.9 Laboratory Tests Test 04/21/21 12:39 04/21/21 12:55 Glucose (Fingerstick) 223 mg/dL (70-99) White Blood Count 5.3 x10^3/uL (4.0-11.0) Red Blood Count 3.91 x10^6/uL (3.50-5.40) Hemoglobin 11.9 g/dL (12.0-15.5) Hematocrit 35.6 % (36.0-47.0) Mean Corpuscular Volume 91 fL (79-100) Mean Corpuscular Hemoglobin 30 pg (25-35) Mean Corpuscular Hemoglobin Concent 33 g/dL (31-37) Red Cell Distribution Width 16.3 % (11.5-14.5) Platelet Count 227 x10^3/uL (140-400) Neutrophils (%) (Auto) 35 % (31-73) Lymphocytes (%) (Auto) 51 % (24-48) Monocytes (%) (Auto) 9 % (0-9) Eosinophils (%) (Auto) 5 % (0-3) Basophils (%) (Auto) 1 % (0-3) Neutrophils # (Auto) 1.8 x10^3/uL (1.8-7.7) Lymphocytes # (Auto) 2.7 x10^3/uL (1.0-4.8) Monocytes # (Auto) 0.5 x10^3/uL (0.0-1.1) Eosinophils # (Auto) 0.2 x10^3/uL (0.0-0.7) Basophils # (Auto) 0.0 x10^3/uL (0.0-0.2) Prothrombin Time 13.5 SEC (11.7-14.0) Prothromb Time International Ratio 1.0 (0.8-1.1) Activated Partial Thromboplast Time 26 SEC (24-38) Sodium Level 140 mmol/L (136-145) Potassium Level 4.0 mmol/L (3.5-5.1) Chloride Level 102 mmol/L (98-107) Carbon Dioxide Level 29 mmol/L (21-32) Anion Gap 9 (6-14) Blood Urea Nitrogen 22 mg/dL (7-20) Creatinine 1.4 mg/dL (0.6-1.0) Estimated GFR (Cockcroft-Gault) 43.2 BUN/Creatinine Ratio 16 (6-20) Glucose Level 231 mg/dL (70-99) Calcium Level 9.9 mg/dL (8.5-10.1) Magnesium Level 2.0 mg/dL (1.8-2.4) Total Bilirubin 0.3 mg/dL (0.2-1.0) Aspartate Amino Transf (AST/SGOT) 16 U/L (15-37) Alanine Aminotransferase (ALT/SGPT) 18 U/L (14-59) Alkaline Phosphatase 76 U/L (46-116) Troponin I Quantitative < 0.017 ng/mL (0.000-0.055) Total Protein 8.3 g/dL (6.4-8.2) Albumin 3.4 g/dL (3.4-5.0) Albumin/Globulin Ratio 0.7 (1.0-1.7) Triglycerides Level 125 mg/dL (0-150) Cholesterol Level 144 mg/dL (0-200) LDL Cholesterol, Calculated 70 mg/dL (0-100) VLDL Cholesterol, Calculated 25 mg/dL (0-40) Non-HDL Cholesterol Calculated 95 mg/dL (0-129) HDL Cholesterol 49 mg/dL (40-60) Cholesterol/HDL Ratio 2.9 Images Images PATIENT: RANDY RUSH ACCOUNT: [id number] : 1935 LOCATION: ER AGE: 85 SEX: F EXAM STATUS: PRE ER ORD. PHYSICIAN: VALERY LEYVA DO REASON: AMS, SLURRED SPEECH PROCEDURE: CT CODE STROKE HEAD WO EXAM: Head CT without contrast. HISTORY: Slurred speech. Altered mental status. Code stroke. TECHNIQUE: Computed tomographic images of the head were obtained without contrast. *One or more of the following individualized dose reduction techniques were utilized for this examination: 1. Automated exposure control. 2. Adjustment of the mA and/or kV according to patient size. 3. Use of iterative reconstruction technique. COMPARISON: 02/06/2018. FINDINGS: There is no acute or subacute extra-axial or intraparenchymal hemorrhage. There is no mass effect or midline shift. There is no hydrocephalus. There are areas of decreased attenuation within the cerebral white matter, nonspecific and likely related to chronic small vessel disease. There is cerebral volume loss. The visualized portions of the orbits, paranasal sinuses and mastoid air cells are unremarkable. No suspicious calvarial lesion is seen. There is a stable likely empty or partially empty prominent sella. IMPRESSION: 1. No acute intracranial finding. Note is made that MRI is more sensitive for acute infarction. 2. Bilateral cerebral white matter changes, most commonly due to chronic small vessel disease in patients of this age. 3. Cerebral volume loss. 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 We will admit patient to ICU for monitoring over the next [address] head in the morning Lipid panel did not show significant abnormality Post tPA, goal blood pressure 180/105 mmHg (hydralazine, nicardipine infusion as needed to maintain goal blood pressure) Dual antiplatelet therapy for >24 hours Basal/prandial insulin Baseline kidney function from 01/03/2018 showed BUN 15, creatinine 0.19. Resume home medications FEN - Cardiac diet PPX - SCDs DNR Dispo - inpatient for above Patient names her daughter (Donya Banuelos) as surrogate decision-maker Critical care time 30 minutes spent reviewing charts, reviewing labs, reviewing imaging, discussion with Dr. Leyva, discussion with patient's daughter, and discussion with RN. Justifications for Admission Other Justification NELSON GONCALVES MD Apr 21, 2021 14:42
[2021-04-21] MEDS ORDERED: IV NORMAL SALINE 1000ML BAG 1,000 ML IV ONE (14:45)
[2021-04-21] MEDS ORDERED: CALCIUM CARBONATE 500 MG TAB.CHEW PO PRN (15:00)
[2021-04-21] MEDS ORDERED: hydrALAZINE 20 MG/ML VIAL. IVP PRN (15:00)
[2021-04-21] MEDS ORDERED: ACETAMINOPHEN 325 MG TABLET. PO PRN (15:00)
[2021-04-21] MEDS ORDERED: PROCHLORPERAZINE 10 MG/2 ML VIAL. IVP PRN (15:00)
[2021-04-21] MEDS ORDERED: MAG HYDROX/ALUMINUM HYD/SIMETH 30 ML ORAL.SUSP PO PRN (15:00)
[2021-04-21] MEDS ORDERED: MAGNESIUM HYDROXIDE 2,400 MG/30 ML ORAL.SUSP. PO PRN (15:00)
[2021-04-21] MEDS ORDERED: 0.9 % SODIUM CHLORIDE 10 ML DISP.SYRIN. IV PRN (15:00)
[2021-04-21] MEDS ORDERED: DEXTROSE 50% 25 GM / 50ML DISP.SYRIN. IV PRN (15:00)
--- NOTE | 2021-04-21 16:17 | RAD ---
EXAM: Carotid Doppler sonogram. HISTORY: Cerebral infarction. Atherosclerosis. TECHNIQUE: Haywood scale and color Doppler sonographic evaluation of the neck with spectral waveform denise lysis was performed and static images are submitted for review. FINDINGS: There is moderate atherosclerotic plaque involving the right common carotid artery, carotid bulbs and left greater than right internal carotid arteries and left external carotid artery. The peak systolic velocity within the right common carotid artery is 72 cm/sec. The peak systolic vannesa ocity within the right internal carotid artery is 90 cm/sec and the end diastolic velocity within the right internal carotid artery is 35 cm/sec. The right ICA/CCA ratio is 1.25. The peak systolic velocity within the left common carotid artery is 70 cm/sec. The peak systolic [place] within the left internal carotid artery is 137 cm/sec and the end diastolic velocity within the left internal carotid artery is 37 cm/sec. The left ICA/CCA ratio is 2.0. There is normal antegrade flow within both vertebral arteries. IMPRESSION: 1. Doppler findings suggesting 50-69 percent stenosis involving the left ICA and less than 60 percent stenosis involving the right ICA. 2. Moderate atherosclerotic plaque involving the right common carotid artery, carotid bulbs and left greater than right internal carotid arteries and left external carotid artery. PQRS Compliance Statement - Stenosis calculations for CT, MR and conventional angiography are based u carroll measurement of the distal ICA diameter in accordance with the NASCET methodology. Stenosis calcu lations for carotid ultrasound studies are derived from validated velocity criteria which are known t o correlate with the NASCET methodology. Electronically signed by: Debi Bryson MD (04/21/2021 4:15 PM) [id number]
[2021-04-21] MEDS: CARVEDILOL 12.5 MG TABLET. PO SCH (16:58)
[2021-04-21] MEDS: INSULIN LISPRO 300 UNITS/3 ML VIAL. SQ SCH (17:00)
--- NOTE | 2021-04-21 17:20 | EKG ---
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
[2021-04-21] MEDS: ATORVASTATIN CALCIUM 10 MG TABLET. PO SCH (20:30)
[2021-04-21] MEDS: INSULIN GLARGINE SYRINGE. SQ SCH ×2 (20:36→23:40)
[2021-04-21] MEDS ORDERED: MIRTAZAPINE 15 MG TABLET PO SCH (21:00)
--- NOTE | 2021-04-21 22:46 | RAD ---
CT head without contrast PQRS statement: CT scans at this facility use dose reduction including either automated exposure cont rol, iterative reconstructions, and /or weight based radiation dosing via mA and kV modification when appropriate to reduce radiation dose to as low as reasonably achievable. HISTORY: Frontal headache after intravenous TPA thrombolytic administered. COMPARISON: CT head April 21, 2021. FINDINGS: There is generalized brain atrophy with enlargement of the subarachnoid spaces overlying th e cerebral hemispheres as well as enlargement of the cerebral sulci and ventricles, stable. No intrac ranial hemorrhage, mass, hydrocephalus or infarction. Calcified plaque cavernous carotid arteries and vertebral arteries. Orbits, mastoids and bones are unremarkable. IMPRESSION: No acute abnormality. Electronically signed by: Mazin Lilly MD (04/21/2021 10:43 PM) [id number]
[2021-04-22] VITALS (11 sets, daily range): BP systolic 109–198; BP diastolic 59–88
--- NOTE | 2021-04-22 07:27 | PDOC ---
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 We will admit patient to ICU for monitoring over the next [address] head in the morning Lipid panel did not show significant abnormality Post tPA, goal blood pressure 180/105 mmHg (hydralazine, nicardipine infusion as needed to maintain goal blood pressure) Dual antiplatelet therapy for >24 hours Basal/prandial insulin Baseline kidney function from 01/03/2018 showed BUN 15, creatinine 0.19. Resume home medications FEN - Cardiac diet PPX - SCDs DNR Dispo - inpatient for above Patient names her daughter (Donya Banuelos) as surrogate decision-maker History of Present Illness History of Present Illness Patient is 85-year-old female with past medical history hemorrhagic CVA, [place], CAD, DM 2, HTN, HLD, presents to the ED after sudden onset altered mental status noted by her family this morning. Brought to the ED by daughter who stated that she was confused and unable to speak; reportedly trying to speak but was able to get words out. 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 Labs on admission showed hemoglobin 11.9, hematocrit 35.6, BUN 22, creatinine 1.4, CBG 231, troponin <0.017. CT head on admission showed no acute intracranial finding, bilateral cerebral white matter changes due to chronic small vessel disease, cerebral volume loss. NIH score 10. Patient's daughter notes anaphylactic allergy to contrast dye. 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 Neurology was consulted in the ED and recommended tPA. Will admit patient to ICU for further medical management. 04/22/2021: Patient seen while still in the ED. Clinically she is doing much better this morning, she is able to tell me her name and knows where she is. Discussed with RN, tPA had to be stopped after roughly 90% of infusion was complete due to complaints of headache and blood-tinged sputum. CT head was repeated last night due to concerns of headache post tPA; repeat CT showed no acute abnormality. Will repeat CT head again today, per Dr. Pedraza's recommendations. NPO until seen by ST today. Will order repeat CBC and BMP. PT/OT modalities. Critical care time 30 minutes spent reviewing charts, reviewing labs, reviewing imaging, discussion with RN. Vitals/I&O Vitals/I&O: Vital Signs Date Time Temp Pulse Resp B/P (MAP) Pulse Ox O2 Delivery O2 Flow Rate FiO2 04/21/21 20:02 58 18 214/93 (133) 99 Room Air 04/21/21 12:32 98.4 98.4 I & O 04/21/21 04/21/21 04/22/21 15:00 23:00 07:00 Intake Total 1000 ml Balance 1000 ml Physical Exam General: Alert, Cooperative, No acute distress Heart: Regular rate Lungs: Clear Abdomen: Soft, No tenderness Extremities: No clubbing Skin: No rashes, No breakdown Labs Labs: Laboratory Tests Test 04/21/21 12:39 04/21/21 12:55 04/21/21 14:11 04/21/21 17:01 Glucose (Fingerstick) 223 mg/dL (70-99) 157 mg/dL (70-99) White Blood Count 5.3 x10^3/uL (4.0-11.0) Red Blood Count 3.91 x10^6/uL (3.50-5.40) Hemoglobin 11.9 g/dL (12.0-15.5) Hematocrit 35.6 % (36.0-47.0) Mean Corpuscular Volume 91 fL (79-100) Mean Corpuscular Hemoglobin 30 pg (25-35) Mean Corpuscular Hemoglobin Concent 33 g/dL (31-37) Red Cell Distribution Width 16.3 % (11.5-14.5) Platelet Count 227 x10^3/uL (140-400) Neutrophils (%) (Auto) 35 % (31-73) Lymphocytes (%) (Auto) 51 % (24-48) Monocytes (%) (Auto) 9 % (0-9) Eosinophils (%) (Auto) 5 % (0-3) Basophils (%) (Auto) 1 % (0-3) Neutrophils # (Auto) 1.8 x10^3/uL (1.8-7.7) Lymphocytes # (Auto) 2.7 x10^3/uL (1.0-4.8) Monocytes # (Auto) 0.5 x10^3/uL (0.0-1.1) Eosinophils # (Auto) 0.2 x10^3/uL (0.0-0.7) Basophils # (Auto) 0.0 x10^3/uL (0.0-0.2) Prothrombin Time 13.5 SEC (11.7-14.0) Prothromb Time International Ratio 1.0 (0.8-1.1) Activated Partial Thromboplast Time 26 SEC (24-38) Sodium Level 140 mmol/L (136-145) Potassium Level 4.0 mmol/L (3.5-5.1) Chloride Level 102 mmol/L (98-107) Carbon Dioxide Level 29 mmol/L (21-32) Anion Gap 9 (6-14) Blood Urea Nitrogen 22 mg/dL (7-20) Creatinine 1.4 mg/dL (0.6-1.0) Estimated GFR (Cockcroft-Gault) 43.2 BUN/Creatinine Ratio 16 (6-20) Glucose Level 231 mg/dL (70-99) Calcium Level 9.9 mg/dL (8.5-10.1) Magnesium Level 2.0 mg/dL (1.8-2.4) Total Bilirubin 0.3 mg/dL (0.2-1.0) Aspartate Amino Transf (AST/SGOT) 16 U/L (15-37) Alanine Aminotransferase (ALT/SGPT) 18 U/L (14-59) Alkaline Phosphatase 76 U/L (46-116) Troponin I Quantitative < 0.017 ng/mL (0.000-0.055) Total Protein 8.3 g/dL (6.4-8.2) Albumin 3.4 g/dL (3.4-5.0) Albumin/Globulin Ratio 0.7 (1.0-1.7) Triglycerides Level 125 mg/dL (0-150) Cholesterol Level 144 mg/dL (0-200) LDL Cholesterol, Calculated 70 mg/dL (0-100) VLDL Cholesterol, Calculated 25 mg/dL (0-40) Non-HDL Cholesterol Calculated 95 mg/dL (0-129) HDL Cholesterol 49 mg/dL (40-60) Cholesterol/HDL Ratio 2.9 SARS-CoV-2 Antigen (Rapid) Negative (NEGATIVE) Test 04/21/21 22:41 Glucose (Fingerstick) 140 mg/dL (70-99) Assessment and Plan Assessmemt and Plan Problems Medical Problems: (1) Acute CVA (cerebrovascular accident) Status: Acute Comment Review of Relevant I have reviewed the following items geoff (where applicable) has been applied. Medications: Current Medications Medications (Trade) Dose Ordered Sig/Rogelio Route PRN Reason Start Time Stop Time Status Last Admin Dose Admin Alteplase, Recombinant 7.5 ml @ 450 mls/hr 1X ONCE IV 04/21/21 13:30 04/21/21 13:31 DC 04/21/21 13:34 Alteplase, Recombinant 68 ml @ 68 mls/hr Q1H IV 04/21/21 13:30 04/21/21 14:29 DC 04/21/21 13:38 Ondansetron HCl (Zofran) 4 mg PRN Q6HRS PRN IVP NAUSEA/VOMITING 04/21/21 13:45 04/21/21 14:34 Sodium Chloride 1,000 ml @ 1,000 mls/hr 1X ONCE IV 04/21/21 14:45 04/21/21 15:44 DC 04/21/21 14:53 Lorazepam (Ativan Inj) 1 mg 1X ONCE IVP 04/21/21 14:45 04/21/21 14:46 DC 04/21/21 14:57 Justifications for Admission Other Justification NELSON GONCALVES MD Apr 22, 2021 07:27
[2021-04-22] MEDS ORDERED: PANTOPRAZOLE 40 MG TABLET.DR. PO SCH (07:30)
[2021-04-22] MEDS: INSULIN LISPRO 300 UNITS/3 ML VIAL. SQ SCH ×3 (08:00→16:41)
[2021-04-22] MEDS: CARVEDILOL 12.5 MG TABLET. PO SCH ×3 (08:00→18:35)
[2021-04-22 08:16] LABS: BILIRUBIN,URINE NEGATIVE (NEG); CLARITY,URINE CLEAR; COLOR,URINE YELLOW; NITRITE,URINE NEGATIVE (NEG); PROTEIN,URINE NEGATIVE (NEG-TRACE); UROBILINOGEN,URINE 0.2 mg/dL (0.2 mg/dL)
[2021-04-22 08:30] LABS: RBC,URINE 0 /HPF (0-2)
[2021-04-22 08:31] LABS: BACTERIA,URINE 0 /HPF (0-FEW); WBC,URINE 0 /HPF (0-4)
[2021-04-22] MEDS: ISOSORBIDE MONONITRATE ER 30 MG TAB.ER.24H PO SCH (08:56)
[2021-04-22] MEDS ORDERED: FERROUS SULFATE 325 MG TABLET. PO SCH (09:00)
[2021-04-22] MEDS ORDERED: CITALOPRAM 20 MG TABLET. PO SCH (09:00)
[2021-04-22] MEDS ORDERED: VERAPAMIL SR 120 MG TABLET.ER. PO SCH (09:00)
--- NOTE | 2021-04-22 10:50 | NUR ---
Huong from [facility] is at bedside completing Swallow screening at this time.
--- NOTE | 2021-04-22 13:17 | NUR ---
Dr. Pedraza at bedside. Per Dr. Pedraza, pt is okay to be downgraded to CVC status after completion of CT at 1330
--- NOTE | 2021-04-22 13:57 | RAD ---
CT HEAD/BRAIN WO History: CVA after alteplase. Comparison: 04/21/2021. Technique: Noncontrast CT imaging was performed of the head. Findings: No intracranial hemorrhage. No mass effect. No hydrocephalus. No evidence of acute territorial infar ction. ICA and vertebral artery calcifications. Surgical changes of the lenses. Orbits are otherwise unremarkable. Imaged paranasal sinuses and masto id air cells are clear. The scalp and calvarium are unremarkable. Impression: 1. No acute intracranial abnormality. ----- Exposure: One or more of the following individualized dose reduction techniques were utilized for thi s examination: 1. Automated exposure control 2. Adjustment of the mA and/or kV according to patient size 3. Use of iterative reconstruction technique. Electronically signed by: Lenin Welsh MD (04/22/2021 1:54 PM) [id number]
[2021-04-22] MEDS: MORPHINE SULFATE 2 MG/ML INJ. IV PRN ×2 (13:58→19:59)
[2021-04-22 14:29] LABS: BASO % 1 % (0-3); EOS # 0.2 x10^3/uL (0.0-0.7); EOS % 3 % (0-3); HEMATOCRIT 36.3 % (36.0-47.0); HEMOGLOBIN 11.9 g/dL (12.0-15.5); LYMPH # 2.5 x10^3/uL (1.0-4.8); LYMPH % 53 % (24-48); MEAN CORPUSCULAR HEMOGLOBIN 30 pg (25-35); MEAN CORPUSCULAR HGB CONC 33 g/dL (31-37); MEAN CORPUSCULAR VOLUME 92 fL (79-100); MONO # 0.4 x10^3/uL (0.0-1.1); MONO % 8 % (0-9); NEUT # 1.6 x10^3/uL (1.8-7.7); NEUT % 35 % (31-73); PLATELET COUNT 209 x10^3/uL (140-400); RED BLOOD COUNT 3.93 x10^6/uL (3.50-5.40); RED CELL DISTRIBUTION WIDTH 16.3 % (11.5-14.5); WHITE BLOOD COUNT 4.7 x10^3/uL (4.0-11.0)
[2021-04-22 14:39] LABS: CALCIUM 9.3 mg/dL (8.5-10.1); CREATININE 1.5 mg/dL (0.6-1.0); GFR 39.9; POTASSIUM 4.3 mmol/L (3.5-5.1)
--- NOTE | 2021-04-22 15:01 | PDOC ---
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 She received alteplase bolus and was getting the infusion when she had some blood-tinged sputum, the alteplase was stopped, patient rapidly regained her language. Patient started to stutter again daughter says, when she was discussing the status of her brother. She thinks he is . Family is telling her that he is fine. She gets upset about that. Obviously we need to keep in mind the possibility of conversion disorder. 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 Subjective Had a headache last night, feels fine now Objective Vital Signs Date Time Temp Pulse Resp B/P (MAP) Pulse Ox O2 Delivery O2 Flow Rate FiO2 04/22/21 14:02 60 22 190/78 (115) 97 Room Air 04/22/21 11:03 97.7 97.7 Intake and Output 04/22/21 07:00 Intake Total 1000 ml Balance 1000 ml IV Total 1000 ml PHYSICAL EXAM Alert. Oriented to time, place and person. PERRL. EOMI. CN: no focal findings. Muscle tone: normal. Muscle strength: 4/5 DTR: 1+ Plantar reflex: flexor Gait: not examined in bed. Sensory exam: no abnormal findings. No cerebellar signs elicited. Review of Relevant I have reviewed the following items geoff (where applicable) has been applied. Labs Laboratory Tests Test 04/21/21 12:39 04/21/21 12:55 04/21/21 14:11 04/21/21 17:01 Glucose (Fingerstick) 223 mg/dL (70-99) 157 mg/dL (70-99) White Blood Count 5.3 x10^3/uL (4.0-11.0) Red Blood Count 3.91 x10^6/uL (3.50-5.40) Hemoglobin 11.9 g/dL (12.0-15.5) Hematocrit 35.6 % (36.0-47.0) Mean Corpuscular Volume 91 fL (79-100) Mean Corpuscular Hemoglobin 30 pg (25-35) Mean Corpuscular Hemoglobin Concent 33 g/dL (31-37) Red Cell Distribution Width 16.3 % (11.5-14.5) Platelet Count 227 x10^3/uL (140-400) Neutrophils (%) (Auto) 35 % (31-73) Lymphocytes (%) (Auto) 51 % (24-48) Monocytes (%) (Auto) 9 % (0-9) Eosinophils (%) (Auto) 5 % (0-3) Basophils (%) (Auto) 1 % (0-3) Neutrophils # (Auto) 1.8 x10^3/uL (1.8-7.7) Lymphocytes # (Auto) 2.7 x10^3/uL (1.0-4.8) Monocytes # (Auto) 0.5 x10^3/uL (0.0-1.1) Eosinophils # (Auto) 0.2 x10^3/uL (0.0-0.7) Basophils # (Auto) 0.0 x10^3/uL (0.0-0.2) Prothrombin Time 13.5 SEC (11.7-14.0) Prothromb Time International Ratio 1.0 (0.8-1.1) Activated Partial Thromboplast Time 26 SEC (24-38) Sodium Level 140 mmol/L (136-145) Potassium Level 4.0 mmol/L (3.5-5.1) Chloride Level 102 mmol/L (98-107) Carbon Dioxide Level 29 mmol/L (21-32) Anion Gap 9 (6-14) Blood Urea Nitrogen 22 mg/dL (7-20) Creatinine 1.4 mg/dL (0.6-1.0) Estimated GFR (Cockcroft-Gault) 43.2 BUN/Creatinine Ratio 16 (6-20) Glucose Level 231 mg/dL (70-99) Calcium Level 9.9 mg/dL (8.5-10.1) Magnesium Level 2.0 mg/dL (1.8-2.4) Total Bilirubin 0.3 mg/dL (0.2-1.0) Aspartate Amino Transf (AST/SGOT) 16 U/L (15-37) Alanine Aminotransferase (ALT/SGPT) 18 U/L (14-59) Alkaline Phosphatase 76 U/L (46-116) Troponin I Quantitative < 0.017 ng/mL (0.000-0.055) Total Protein 8.3 g/dL (6.4-8.2) Albumin 3.4 g/dL (3.4-5.0) Albumin/Globulin Ratio 0.7 (1.0-1.7) Triglycerides Level 125 mg/dL (0-150) Cholesterol Level 144 mg/dL (0-200) LDL Cholesterol, Calculated 70 mg/dL (0-100) VLDL Cholesterol, Calculated 25 mg/dL (0-40) Non-HDL Cholesterol Calculated 95 mg/dL (0-129) HDL Cholesterol 49 mg/dL (40-60) Cholesterol/HDL Ratio 2.9 SARS-CoV-2 RNA (ROXIE) Negative (Negative) SARS-CoV-2 Antigen (Rapid) Negative (NEGATIVE) Test 04/21/21 22:41 04/22/21 08:00 04/22/21 08:54 04/22/21 12:05 Glucose (Fingerstick) 140 mg/dL (70-99) 117 mg/dL (70-99) 134 mg/dL (70-99) Urine Collection Type Unknown Urine Color Yellow Urine Clarity Clear Urine pH 6.0 (<5.0-8.0) Urine Specific [place] 1.015 (1.000-1.030) Urine Protein Negative mg/dL (NEG-TRACE) Urine Glucose (UA) Negative mg/dL (NEG) Urine Ketones (Stick) Negative mg/dL (NEG) Urine Blood Negative (NEG) Urine Nitrite Negative (NEG) Urine Bilirubin Negative (NEG) Urine Urobilinogen Dipstick 0.2 mg/dL (0.2 mg/dL) Urine Leukocyte Esterase Negative (NEG) Urine RBC 0 /HPF (0-2) Urine WBC 0 /HPF (0-4) Urine Squamous Epithelial Cells Few /LPF Urine Bacteria 0 /HPF (0-FEW) Test 04/22/21 14:00 White Blood Count 4.7 x10^3/uL (4.0-11.0) Red Blood Count 3.93 x10^6/uL (3.50-5.40) Hemoglobin 11.9 g/dL (12.0-15.5) Hematocrit 36.3 % (36.0-47.0) Mean Corpuscular Volume 92 fL (79-100) Mean Corpuscular Hemoglobin 30 pg (25-35) Mean Corpuscular Hemoglobin Concent 33 g/dL (31-37) Red Cell Distribution Width 16.3 % (11.5-14.5) Platelet Count 209 x10^3/uL (140-400) Neutrophils (%) (Auto) 35 % (31-73) Lymphocytes (%) (Auto) 53 % (24-48) Monocytes (%) (Auto) 8 % (0-9) Eosinophils (%) (Auto) 3 % (0-3) Basophils (%) (Auto) 1 % (0-3) Neutrophils # (Auto) 1.6 x10^3/uL (1.8-7.7) Lymphocytes # (Auto) 2.5 x10^3/uL (1.0-4.8) Monocytes # (Auto) 0.4 x10^3/uL (0.0-1.1) Eosinophils # (Auto) 0.2 x10^3/uL (0.0-0.7) Basophils # (Auto) 0.0 x10^3/uL (0.0-0.2) Sodium Level 143 mmol/L (136-145) Potassium Level 4.3 mmol/L (3.5-5.1) Chloride Level 104 mmol/L (98-107) Carbon Dioxide Level 29 mmol/L (21-32) Anion Gap 10 (6-14) Blood Urea Nitrogen 21 mg/dL (7-20) Creatinine 1.5 mg/dL (0.6-1.0) Estimated GFR (Cockcroft-Gault) 39.9 Glucose Level 158 mg/dL (70-99) Calcium Level 9.3 mg/dL (8.5-10.1) Laboratory Tests Test 04/21/21 17:01 04/21/21 22:41 04/22/21 08:00 04/22/21 08:54 Glucose (Fingerstick) 157 mg/dL (70-99) 140 mg/dL (70-99) 117 mg/dL (70-99) Urine Collection Type Unknown Urine Color Yellow Urine Clarity Clear Urine pH 6.0 (<5.0-8.0) Urine Specific [place] 1.015 (1.000-1.030) Urine Protein Negative mg/dL (NEG-TRACE) Urine Glucose (UA) Negative mg/dL (NEG) Urine Ketones (Stick) Negative mg/dL (NEG) Urine Blood Negative (NEG) Urine Nitrite Negative (NEG) Urine Bilirubin Negative (NEG) Urine Urobilinogen Dipstick 0.2 mg/dL (0.2 mg/dL) Urine Leukocyte Esterase Negative (NEG) Urine RBC 0 /HPF (0-2) Urine WBC 0 /HPF (0-4) Urine Squamous Epithelial Cells Few /LPF Urine Bacteria 0 /HPF (0-FEW) Test 04/22/21 12:05 04/22/21 14:00 Glucose (Fingerstick) 134 mg/dL (70-99) White Blood Count 4.7 x10^3/uL (4.0-11.0) Red Blood Count 3.93 x10^6/uL (3.50-5.40) Hemoglobin 11.9 g/dL (12.0-15.5) Hematocrit 36.3 % (36.0-47.0) Mean Corpuscular Volume 92 fL (79-100) Mean Corpuscular Hemoglobin 30 pg (25-35) Mean Corpuscular Hemoglobin Concent 33 g/dL (31-37) Red Cell Distribution Width 16.3 % (11.5-14.5) Platelet Count 209 x10^3/uL (140-400) Neutrophils (%) (Auto) 35 % (31-73) Lymphocytes (%) (Auto) 53 % (24-48) Monocytes (%) (Auto) 8 % (0-9) Eosinophils (%) (Auto) 3 % (0-3) Basophils (%) (Auto) 1 % (0-3) Neutrophils # (Auto) 1.6 x10^3/uL (1.8-7.7) Lymphocytes # (Auto) 2.5 x10^3/uL (1.0-4.8) Monocytes # (Auto) 0.4 x10^3/uL (0.0-1.1) Eosinophils # (Auto) 0.2 x10^3/uL (0.0-0.7) Basophils # (Auto) 0.0 x10^3/uL (0.0-0.2) Sodium Level 143 mmol/L (136-145) Potassium Level 4.3 mmol/L (3.5-5.1) Chloride Level 104 mmol/L (98-107) Carbon Dioxide Level 29 mmol/L (21-32) Anion Gap 10 (6-14) Blood Urea Nitrogen 21 mg/dL (7-20) Creatinine 1.5 mg/dL (0.6-1.0) Estimated GFR (Cockcroft-Gault) 39.9 Glucose Level 158 mg/dL (70-99) Calcium Level 9.3 mg/dL (8.5-10.1) Medications Current Medications Alteplase, Recombinant 7.5 ml @ 450 mls/hr 1X ONCE IV Last administered on 04/21/21at 13:34; Start 04/21/21 at 13:30; Stop 04/21/21 at 13:31; Status DC Alteplase, Recombinant 68 ml @ 68 mls/hr Q1H IV Last administered on 04/21/21at 13:38; Start 04/21/21 at 13:30; Stop 04/21/21 at 14:29; Status DC Sodium Chloride 50 ml @ 200 mls/hr 1X ONCE IV ; Start 04/21/21 at 14:30; Stop 04/21/21 at 14:44; Status DC Labetalol HCl (Normodyne Iv Push) 10 mg PRN Q10MIN PRN IVP HYPERTENSION; Start 04/21/21 at 13:45 Nicardipine HCl 50 mg/Sodium Chloride 250 ml @ 25 mls/hr CONT PRN PRN IV HYPERTENSION; Start 04/21/21 at 13:45 Acetaminophen (Tylenol) 650 mg PRN Q6HRS PRN PO MILD PAIN / TEMP > 100.3'F; Start 04/21/21 at 13:45 Acetaminophen (Tylenol Supp) 650 mg PRN Q6HRS PRN VT MILD PAIN / TEMP > 100.3'F; Start 04/21/21 at 13:45 Ondansetron HCl (Zofran) 4 mg PRN Q6HRS PRN IVP NAUSEA/VOMITING Last administered on 04/21/21at 14:34; Start 04/21/21 at 13:45 Sodium Chloride 1,000 ml @ 1,000 mls/hr 1X ONCE IV Last administered on 04/21/21at 14:53; Start 04/21/21 at 14:45; Stop 04/21/21 at 15:44; Status DC Lorazepam (Ativan Inj) 1 mg 1X ONCE IVP Last administered on 04/21/21at 14:57; Start 04/21/21 at 14:45; Stop 04/21/21 at 14:46; Status DC Hydralazine HCl (Apresoline Inj) 10 mg PRN Q4HRS PRN IVP HYPERTENSION; Start 04/21/21 at 15:00 Carvedilol (Coreg) 12.5 mg BIDWMEALS PO ; Start 04/21/21 at 17:00 Ferrous Sulfate (Feosol) 325 mg DAILY PO ; Start 04/22/21 at 09:00 Isosorbide Mononitrate (Imdur) 30 mg DAILY PO ; Start 04/22/21 at 09:00 Citalopram Hydrobromide (CeleXA) 20 mg DAILY PO ; Start 04/22/21 at 09:00 Atorvastatin Calcium (Lipitor) 10 mg QHS PO ; Start 04/21/21 at 21:00 Mirtazapine (Remeron) 30 mg QHS PO ; Start 04/21/21 at 21:00 Pantoprazole Sodium (Protonix) 40 mg DAILYAC PO ; Start 04/22/21 at 07:30 Verapamil HCl (Calan Sr) 240 mg DAILY PO ; Start 04/22/21 at 09:00 Insulin Glargine (Lantus Syringe) 10 unit QHS SQ ; Start 04/21/21 at 21:00 Insulin Human Lispro (HumaLOG) 0-7 UNITS TIDWMEALS SQ ; Start 04/21/21 at 17:00 Dextrose (Dextrose 50%-Water Syringe) 12.5 gm PRN Q15MIN PRN IV SEE COMMENTS; Start 04/21/21 at 15:00 Acetaminophen (Tylenol) 650 mg PRN Q6HRS PRN PO Headaches, Temp > 101.5'; Start 04/21/21 at 15:00; Status UNV Lorazepam (Ativan Inj) 0.5 mg PRN Q6HRS PRN IVP ANXIETY / AGITATION; Start 04/21/21 at 15:00 Lorazepam (Ativan) 1 mg PRN Q6HRS PRN PO ANXIETY / AGITATION; Start 04/21/21 at 15:00 Ondansetron HCl (Zofran) 4 mg PRN Q6HRS PRN IVP NAUSEA/VOMITING; Start 04/21/21 at 15:00; Status UNV Prochlorperazine Edisylate (Compazine) 5 mg PRN Q6HRS PRN IVP NAUSEA/VOMITING; Start 04/21/21 at 15:00 Al Hydroxide/Mg Hydroxide (Mylanta Plus Xs) 30 ml PRN Q3HRS PRN PO HEARTBURN / GAS; Start 04/21/21 at 15:00 Calcium Carbonate/ Glycine (Tums) 500 mg PRN Q3HRS PRN PO HEARTBURN / GAS; Start 04/21/21 at 15:00 Zolpidem Tartrate (Ambien) 5 mg PRN QHS PRN PO INSOMNIA, MAY REPEAT IN 1HR; Start 04/21/21 at 15:00 Sodium Chloride (Normal Saline Flush) 3 ml QSHIFT PRN IV AFTER MEDS AND BLOOD DRAWS; Start 04/21/21 at 15:00 Morphine Sulfate (Morphine Sulfate) 2 mg PRN Q1HR PRN IV PAIN Last administered on 04/22/21at 13:58; Start 04/21/21 at 15:00 Magnesium Hydroxide (Milk Of Magnesia) 2,400 mg PRN Q12HR PRN PO CONSTIPATION; Start 04/21/21 at 15:00 Active Scripts Active Ferrous Sulfate 325 Mg Tablet 1 Tab PO DAILY Reported Lovastatin 40 Mg Tablet 1 Tab PO DAILY Verapamil Er (Verapamil Hcl) 240 Mg Cap24h.pel 1 Cap PO DAILY Isosorbide Mononitrate Er (Isosorbide Mononitrate) 30 Mg Tab.er.24h 1 Tab PO DAILY Aspirin 81 Mg Tab.chew 1 Tab PO DAILY Protonix (Pantoprazole Sodium) 20 Mg Tablet.dr 1 Tab PO DAILY Carvedilol (Carvedilol) 12.5 Mg Tablet 1 Tab PO BID Mirtazapine 30 Mg Tablet 1 Tab PO QHS Lisinopril 5 Mg Tablet 1 Tab PO DAILY Escitalopram Oxalate 10 Mg Tablet 1 Tab PO DAILY Vitals/I & O Vital Sign - Last 24 Hours 04/21/21 04/21/21 04/21/21 04/21/21 15:02 15:17 15:32 16:02 Pulse 68 60 60 58 Resp 16 14 18 11 B/P (MAP) 154/69 (97) 113/56 (75) 122/58 (79) 117/58 (77) Pulse Ox 95 97 96 97 O2 Delivery Room Air Room Air Room Air Room Air 04/21/21 04/21/21 04/21/21 04/21/21 16:32 17:02 17:32 18:32 Pulse 58 60 64 58 Resp 17 13 19 14 B/P (MAP) 149/74 (99) 131/64 (86) 178/78 (111) 176/82 (113) Pulse Ox 100 96 99 98 O2 Delivery Room Air Room Air Room Air Room Air 04/21/21 04/21/21 04/22/21 04/22/21 19:02 20:02 06:00 06:45 Pulse 60 58 60 60 Resp 18 18 18 B/P (MAP) 166/79 (108) 214/93 (133) 129/59 (82) 158/69 (98) Pulse Ox 98 99 99 97 O2 Delivery Room Air Room Air Room Air Room Air 04/22/21 04/22/21 04/22/21 04/22/21 07:25 08:14 09:03 10:06 Temp 98.6 98.4 98.6 98.4 Pulse 58 65 60 60 Resp 19 20 16 15 B/P (MAP) 122/59 (80) 134/64 (87) 172/74 (106) 132/60 (84) Pulse Ox 98 97 96 97 O2 Delivery Room Air Room Air Room Air Room Air 04/22/21 04/22/21 04/22/21 04/22/21 11:03 11:59 13:06 13:58 Temp 97.7 97.7 Pulse 63 62 59 Resp 17 18 22 B/P (MAP) 198/88 (124) 139/63 (88) 189/84 (119) Pulse Ox 100 97 97 95 O2 Delivery Room Air Room Air Room Air Room Air 04/22/21 14:02 Pulse 60 Resp 22 B/P (MAP) 190/78 (115) Pulse Ox 97 O2 Delivery Room Air Intake and Output 04/21/21 04/21/21 04/22/21 15:00 23:00 07:00 Intake Total 1000 ml Balance [address] HEAD/BRAIN WO History: CVA after alteplase. Comparison: 04/21/2021. Technique: Noncontrast CT imaging was performed of the head. Findings: No intracranial hemorrhage. No mass effect. No hydrocephalus. No evidence of acute territorial infarction. ICA and vertebral artery calcifications. Surgical changes of the lenses. Orbits are otherwise unremarkable. Imaged paranasal sinuses and mastoid air cells are clear. The scalp and calvarium are unremarkable. Impression: 1. No acute intracranial abnormality. Carotid Doppler sonogram. HISTORY: Cerebral infarction. Atherosclerosis. TECHNIQUE: Haywood scale and color Doppler sonographic evaluation of the neck with spectral waveform analysis was performed and static images are submitted for review. FINDINGS: There is moderate atherosclerotic plaque involving the right common carotid artery, carotid bulbs and left greater than right internal carotid arteries and left external carotid artery. The peak systolic velocity within the right common carotid artery is 72 cm/sec. The peak systolic velocity within the right internal carotid artery is 90 cm/sec and the end diastolic velocity within the right internal carotid artery is 35 cm/sec. The right ICA/CCA ratio is 1.25. The peak systolic velocity within the left common carotid artery is 70 cm/sec. The peak systolic velocity within the left internal carotid artery is 137 cm/sec and the end diastolic velocity within the left internal carotid artery is 37 cm/sec. The left ICA/CCA ratio is 2.0. There is normal antegrade flow within both vertebral arteries. IMPRESSION: 1. Doppler findings suggesting 50-69 percent stenosis involving the left ICA and less than 60 percent stenosis involving the right ICA. 2. Moderate atherosclerotic plaque involving the right common carotid artery, carotid bulbs and left greater than right internal carotid arteries and left external carotid artery. Justicifation of Admission Dx: Justifications for Admission: Justification of Admission Dx: Yes Stroke - Ischemic: Stroke-Ischemic BO MARROQUIN MD Apr 22, 2021 15:01
[2021-04-22] MEDS ORDERED: CARV25TA2 PO (15:30)
[2021-04-22] MEDS ORDERED: CRESTOR5 MG PO (15:30)
[2021-04-22] MEDS ORDERED: LEVO75TA5 PO (15:30)
[2021-04-22] MEDS ORDERED: ASPI-630 PO (15:30)
[2021-04-22] MEDS ORDERED: FURO20TA3 PO (15:30)
[2021-04-22] MEDS ORDERED: CLOP75TA PO (15:30)
[2021-04-22] MEDS: ASPIRIN 325 MG TABLET PO SCH (15:51)
[2021-04-22] MEDS: ACETAMINOPHEN 325 MG TABLET. PO PRN (17:04)
[2021-04-22] MEDS: ATORVASTATIN CALCIUM 10 MG TABLET. PO SCH (19:58)
[2021-04-23] VITALS (14 sets, daily range): BP systolic 75–191; BP diastolic 46–81
[2021-04-23] MEDS: ACETAMINOPHEN 325 MG TABLET. PO PRN ×3 (01:04→18:06)
--- NOTE | 2021-04-23 05:00 | NUR ---
PT AMBULATED TO THE BR WITH NOVEMBER, ON THE WAY OUT OF THE BR NOVEMBER CALLED TO GET HELP W PT BACK TO BED. PT WAS DIFFERENT AND TOOK TIMES 2 ASSIST TO GET BACK TO BED. ONCE IN BED TRIED NIH SCALE. PT COULDNT ANSWER QUESTIONS, OR FOLLOW COMMANDS. CALLED CHANGES TO DR MARROQUIN, AND RECEIVED ORDERS, FOR A STAT CT OF THE HEAD. ONCE RESULTS WERE POSTED CALLED DR MARROQUIN AND READ RESULTS. NO ORDERS. LCRN
--- NOTE | 2021-04-23 06:13 | RAD ---
EXAMINATION: CT head without IV contrast INDICATION:85 years, Female, neuro changes. COMPARISON: Prior day TECHNIQUE: Spiral acquisition of contiguous images from the skull base to the vertex were obtained. S agittal and coronal 2D reformatted series were provided by the technologist. Soft tissue and bone win jimmy algorithms were reviewed. Exposure: One or more of the following individualized dose reduction techniques were utilized for thi s examination: 1. Automated exposure control 2. Adjustment of the mA and/or kV according to patient size 3. Use of iterative reconstruction technique. FINDINGS: Neither mass, midline shift, intracranial hemorrhage, acute/subacute ischemic, nor extraaxial fluid c ollections are seen. Mild brain parenchymal volume loss. Supratentorial periventricular white matter hypodensities, indeterminate but most likely representing chronic microangiopathic disease. The paranasal sinuses, mastoid air cells, and middle ears are clear.The orbital contents appear withi n normal limits. IMPRESSION: 1. No evidence of acute intracranial abnormality. 2. Similar supratentorial periventricular white matter hypodensities, indeterminate but most likely representing chronic microangiopathic disease. Electronically signed by: Cornelius Gallo DO (04/23/2021 6:10 AM) [facility]
[2021-04-23] MEDS: MORPHINE SULFATE 2 MG/ML INJ. IV PRN ×3 (06:27→20:56)
--- NOTE | 2021-04-23 07:33 | PDOC ---
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 We will admit patient to ICU for monitoring over the next [address] head in the morning Lipid panel did not show significant abnormality Post tPA, goal blood pressure 180/105 mmHg (hydralazine, nicardipine infusion as needed to maintain goal blood pressure) Dual antiplatelet therapy for >24 hours Basal/prandial insulin Baseline kidney function from 01/03/2018 showed BUN 15, creatinine 0.19. Resume home medications FEN - Cardiac diet PPX - SCDs DNR Dispo - inpatient for above Patient names her daughter (Donya Banuelos) as surrogate decision-maker History of Present Illness History of Present Illness Patient is 85-year-old female with past medical history hemorrhagic CVA, GA, CAD, DM 2, HTN, HLD, presents to the ED after sudden onset altered mental status noted by her family this morning. Brought to the ED by daughter who stated that she was confused and unable to speak; reportedly trying to speak but was able to get words out. 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 Labs on admission showed hemoglobin 11.9, hematocrit 35.6, BUN 22, creatinine 1.4, CBG 231, troponin <0.017. CT head on admission showed no acute intracranial finding, bilateral cerebral white matter changes due to chronic small vessel disease, cerebral volume loss. NIH score 10. Patient's daughter notes anaphylactic allergy to contrast dye. 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 Neurology was consulted in the ED and recommended tPA. Will admit patient to ICU for further medical management. 04/22/2021: Patient seen while still in the ED. Clinically she is doing much better this morning, she is able to tell me her name and knows where she is. Discussed with RN, tPA had to be stopped after roughly 90% of infusion was complete due to complaints of headache and blood-tinged sputum. CT head was repeated last night due to concerns of headache post tPA; repeat CT showed no acute abnormality. Will repeat CT head again today, per Dr. Pedraza's recommendations. NPO until seen by ST today. Will order repeat CBC and BMP. PT/OT modalities. Critical care time 30 minutes spent reviewing charts, reviewing labs, reviewing imaging, discussion with RN. 04/23/2021: she is doing much better this morning, she is able to tell me her name and knows where she is. Discussed with RN, tPA had to be stopped after roughly 90% of infusion was complete due to complaints of headache and blood-tinged sputum. CT head was repeated 9-15 PM due to concerns of headache post tPA; repeat CT showed no acute abnormality. Will order repeat CBC and BMP. PT/OT modalities. 30 minutes spent reviewing charts, reviewing labs, reviewing imaging, discussion with RN. Early this morning had an episode of aphasia, repeat head CT negative Vitals Vitals Vital Signs Date Time Temp Pulse Resp B/P (MAP) Pulse Ox O2 Delivery O2 Flow Rate FiO2 04/23/21 06:27 96 04/23/21 03:18 97.9 69 16 124/62 (82) Room Air 97.9 Physical Exam General: Alert, Cooperative, No acute distress Heart: Regular rate Lungs: Clear Abdomen: Soft, No tenderness Extremities: No clubbing Skin: No rashes, No breakdown Labs LABS Signed PATIENT: RANDY RUSH ACCOUNT: [id number] : 1935 LOCATION: [address] [place] [address] AGE: 85 SEX: F EXAM STATUS: ADM IN ORD. PHYSICIAN: BO MARROQUIN MD REASON: NEURO CHANGES PROCEDURE: CT HEAD WO CONTRAST EXAMINATION: CT head without IV contrast INDICATION:85 years, Female, neuro changes. COMPARISON: Prior day TECHNIQUE: Spiral acquisition of contiguous images from the skull base to the vertex were obtained. Sagittal and coronal 2D reformatted series were provided by the technologist. Soft tissue and bone window algorithms were reviewed. Exposure: One or more of the following individualized dose reduction techniques were utilized for this examination: 1. Automated exposure control 2. Adjustment of the mA and/or kV according to patient size 3. Use of iterative reconstruction technique. FINDINGS: Neither mass, midline shift, intracranial hemorrhage, acute/subacute ischemic, nor extraaxial fluid collections are seen. Mild brain parenchymal volume loss. Supratentorial periventricular white matter hypodensities, indeterminate but most likely representing chronic microangiopathic disease. The paranasal sinuses, mastoid air cells, and middle ears are clear.The orbital contents appear within normal limits. IMPRESSION: 1. No evidence of acute intracranial abnormality. 2. Similar supratentorial periventricular white matter hypodensities, indeterminate but most likely representing chronic microangiopathic disease. Electronically signed by: Mickie Gallo DO (04/23/2021 6:10 AM) [facility] DICTATED and SIGNED BY: MICKIE GALLO DO DATE: 04/23/21 [id number] Laboratory Tests Test 04/22/21 08:00 04/22/21 08:54 04/22/21 12:05 04/22/21 14:00 Urine Collection Type Unknown Urine Color Yellow Urine Clarity Clear Urine pH 6.0 (<5.0-8.0) Urine Specific Clint 1.015 (1.000-1.030) Urine Protein Negative mg/dL (NEG-TRACE) Urine Glucose (UA) Negative mg/dL (NEG) Urine Ketones (Stick) Negative mg/dL (NEG) Urine Blood Negative (NEG) Urine Nitrite Negative (NEG) Urine Bilirubin Negative (NEG) Urine Urobilinogen Dipstick 0.2 mg/dL (0.2 mg/dL) Urine Leukocyte Esterase Negative (NEG) Urine RBC 0 /HPF (0-2) Urine WBC 0 /HPF (0-4) Urine Squamous Epithelial Cells Few /LPF Urine Bacteria 0 /HPF (0-FEW) Glucose (Fingerstick) 117 mg/dL (70-99) 134 mg/dL (70-99) White Blood Count 4.7 x10^3/uL (4.0-11.0) Red Blood Count 3.93 x10^6/uL (3.50-5.40) Hemoglobin 11.9 g/dL (12.0-15.5) Hematocrit 36.3 % (36.0-47.0) Mean Corpuscular Volume 92 fL (79-100) Mean Corpuscular Hemoglobin 30 pg (25-35) Mean Corpuscular Hemoglobin Concent 33 g/dL (31-37) Red Cell Distribution Width 16.3 % (11.5-14.5) Platelet Count 209 x10^3/uL (140-400) Neutrophils (%) (Auto) 35 % (31-73) Lymphocytes (%) (Auto) 53 % (24-48) Monocytes (%) (Auto) 8 % (0-9) Eosinophils (%) (Auto) 3 % (0-3) Basophils (%) (Auto) 1 % (0-3) Neutrophils # (Auto) 1.6 x10^3/uL (1.8-7.7) Lymphocytes # (Auto) 2.5 x10^3/uL (1.0-4.8) Monocytes # (Auto) 0.4 x10^3/uL (0.0-1.1) Eosinophils # (Auto) 0.2 x10^3/uL (0.0-0.7) Basophils # (Auto) 0.0 x10^3/uL (0.0-0.2) Sodium Level 143 mmol/L (136-145) Potassium Level 4.3 mmol/L (3.5-5.1) Chloride Level 104 mmol/L (98-107) Carbon Dioxide Level 29 mmol/L (21-32) Anion Gap 10 (6-14) Blood Urea Nitrogen 21 mg/dL (7-20) Creatinine 1.5 mg/dL (0.6-1.0) Estimated GFR (Cockcroft-Gault) 39.9 Glucose Level 158 mg/dL (70-99) Calcium Level 9.3 mg/dL (8.5-10.1) Test 04/22/21 16:16 04/22/21 20:45 Glucose (Fingerstick) 128 mg/dL (70-99) 183 mg/dL (70-99) Assessment and Plan Assessmemt and Plan Problems Medical Problems: (1) Acute CVA (cerebrovascular accident) Status: Acute Comment Review of Relevant I have reviewed the following items geoff (where applicable) has been applied. Labs Laboratory Tests Test 04/21/21 12:39 04/21/21 12:55 04/21/21 14:11 04/21/21 17:01 Glucose (Fingerstick) 223 mg/dL (70-99) 157 mg/dL (70-99) White Blood Count 5.3 x10^3/uL (4.0-11.0) Red Blood Count 3.91 x10^6/uL (3.50-5.40) Hemoglobin 11.9 g/dL (12.0-15.5) Hematocrit 35.6 % (36.0-47.0) Mean Corpuscular Volume 91 fL (79-100) Mean Corpuscular Hemoglobin 30 pg (25-35) Mean Corpuscular Hemoglobin Concent 33 g/dL (31-37) Red Cell Distribution Width 16.3 % (11.5-14.5) Platelet Count 227 x10^3/uL (140-400) Neutrophils (%) (Auto) 35 % (31-73) Lymphocytes (%) (Auto) 51 % (24-48) Monocytes (%) (Auto) 9 % (0-9) Eosinophils (%) (Auto) 5 % (0-3) Basophils (%) (Auto) 1 % (0-3) Neutrophils # (Auto) 1.8 x10^3/uL (1.8-7.7) Lymphocytes # (Auto) 2.7 x10^3/uL (1.0-4.8) Monocytes # (Auto) 0.5 x10^3/uL (0.0-1.1) Eosinophils # (Auto) 0.2 x10^3/uL (0.0-0.7) Basophils # (Auto) 0.0 x10^3/uL (0.0-0.2) Prothrombin Time 13.5 SEC (11.7-14.0) Prothromb Time International Ratio 1.0 (0.8-1.1) Activated Partial Thromboplast Time 26 SEC (24-38) Sodium Level 140 mmol/L (136-145) Potassium Level 4.0 mmol/L (3.5-5.1) Chloride Level 102 mmol/L (98-107) Carbon Dioxide Level 29 mmol/L (21-32) Anion Gap 9 (6-14) Blood Urea Nitrogen 22 mg/dL (7-20) Creatinine 1.4 mg/dL (0.6-1.0) Estimated GFR (Cockcroft-Gault) 43.2 BUN/Creatinine Ratio 16 (6-20) Glucose Level 231 mg/dL (70-99) Calcium Level 9.9 mg/dL (8.5-10.1) Magnesium Level 2.0 mg/dL (1.8-2.4) Total Bilirubin 0.3 mg/dL (0.2-1.0) Aspartate Amino Transf (AST/SGOT) 16 U/L (15-37) Alanine Aminotransferase (ALT/SGPT) 18 U/L (14-59) Alkaline Phosphatase 76 U/L (46-116) Troponin I Quantitative < 0.017 ng/mL (0.000-0.055) Total Protein 8.3 g/dL (6.4-8.2) Albumin 3.4 g/dL (3.4-5.0) Albumin/Globulin Ratio 0.7 (1.0-1.7) Triglycerides Level 125 mg/dL (0-150) Cholesterol Level 144 mg/dL (0-200) LDL Cholesterol, Calculated 70 mg/dL (0-100) VLDL Cholesterol, Calculated 25 mg/dL (0-40) Non-HDL Cholesterol Calculated 95 mg/dL (0-129) HDL Cholesterol 49 mg/dL (40-60) Cholesterol/HDL Ratio 2.9 SARS-CoV-2 RNA (ROXIE) Negative (Negative) SARS-CoV-2 Antigen (Rapid) Negative (NEGATIVE) Test 04/21/21 22:41 04/22/21 08:00 04/22/21 08:54 04/22/21 12:05 Glucose (Fingerstick) 140 mg/dL (70-99) 117 mg/dL (70-99) 134 mg/dL (70-99) Urine Collection Type Unknown Urine Color Yellow Urine Clarity Clear Urine pH 6.0 (<5.0-8.0) Urine Specific Clint 1.015 (1.000-1.030) Urine Protein Negative mg/dL (NEG-TRACE) Urine Glucose (UA) Negative mg/dL (NEG) Urine Ketones (Stick) Negative mg/dL (NEG) Urine Blood Negative (NEG) Urine Nitrite Negative (NEG) Urine Bilirubin Negative (NEG) Urine Urobilinogen Dipstick 0.2 mg/dL (0.2 mg/dL) Urine Leukocyte Esterase Negative (NEG) Urine RBC 0 /HPF (0-2) Urine WBC 0 /HPF (0-4) Urine Squamous Epithelial Cells Few /LPF Urine Bacteria 0 /HPF (0-FEW) Test 04/22/21 14:00 04/22/21 16:16 04/22/21 20:45 White Blood Count 4.7 x10^3/uL (4.0-11.0) Red Blood Count 3.93 x10^6/uL (3.50-5.40) Hemoglobin 11.9 g/dL (12.0-15.5) Hematocrit 36.3 % (36.0-47.0) Mean Corpuscular Volume 92 fL (79-100) Mean Corpuscular Hemoglobin 30 pg (25-35) Mean Corpuscular Hemoglobin Concent 33 g/dL (31-37) Red Cell Distribution Width 16.3 % (11.5-14.5) Platelet Count 209 x10^3/uL (140-400) Neutrophils (%) (Auto) 35 % (31-73) Lymphocytes (%) (Auto) 53 % (24-48) Monocytes (%) (Auto) 8 % (0-9) Eosinophils (%) (Auto) 3 % (0-3) Basophils (%) (Auto) 1 % (0-3) Neutrophils # (Auto) 1.6 x10^3/uL (1.8-7.7) Lymphocytes # (Auto) 2.5 x10^3/uL (1.0-4.8) Monocytes # (Auto) 0.4 x10^3/uL (0.0-1.1) Eosinophils # (Auto) 0.2 x10^3/uL (0.0-0.7) Basophils # (Auto) 0.0 x10^3/uL (0.0-0.2) Sodium Level 143 mmol/L (136-145) Potassium Level 4.3 mmol/L (3.5-5.1) Chloride Level 104 mmol/L (98-107) Carbon Dioxide Level 29 mmol/L (21-32) Anion Gap 10 (6-14) Blood Urea Nitrogen 21 mg/dL (7-20) Creatinine 1.5 mg/dL (0.6-1.0) Estimated GFR (Cockcroft-Gault) 39.9 Glucose Level 158 mg/dL (70-99) Calcium Level 9.3 mg/dL (8.5-10.1) Glucose (Fingerstick) 128 mg/dL (70-99) 183 mg/dL (70-99) Laboratory Tests Test 04/22/21 08:00 04/22/21 08:54 04/22/21 12:05 04/22/21 14:00 Urine Collection Type Unknown Urine Color Yellow Urine Clarity Clear Urine pH 6.0 (<5.0-8.0) Urine Specific Clint 1.015 (1.000-1.030) Urine Protein Negative mg/dL (NEG-TRACE) Urine Glucose (UA) Negative mg/dL (NEG) Urine Ketones (Stick) Negative mg/dL (NEG) Urine Blood Negative (NEG) Urine Nitrite Negative (NEG) Urine Bilirubin Negative (NEG) Urine Urobilinogen Dipstick 0.2 mg/dL (0.2 mg/dL) Urine Leukocyte Esterase Negative (NEG) Urine RBC 0 /HPF (0-2) Urine WBC 0 /HPF (0-4) Urine Squamous Epithelial Cells Few /LPF Urine Bacteria 0 /HPF (0-FEW) Glucose (Fingerstick) 117 mg/dL (70-99) 134 mg/dL (70-99) White Blood Count 4.7 x10^3/uL (4.0-11.0) Red Blood Count 3.93 x10^6/uL (3.50-5.40) Hemoglobin 11.9 g/dL (12.0-15.5) Hematocrit 36.3 % (36.0-47.0) Mean Corpuscular Volume 92 fL (79-100) Mean Corpuscular Hemoglobin 30 pg (25-35) Mean Corpuscular Hemoglobin Concent 33 g/dL (31-37) Red Cell Distribution Width 16.3 % (11.5-14.5) Platelet Count 209 x10^3/uL (140-400) Neutrophils (%) (Auto) 35 % (31-73) Lymphocytes (%) (Auto) 53 % (24-48) Monocytes (%) (Auto) 8 % (0-9) Eosinophils (%) (Auto) 3 % (0-3) Basophils (%) (Auto) 1 % (0-3) Neutrophils # (Auto) 1.6 x10^3/uL (1.8-7.7) Lymphocytes # (Auto) 2.5 x10^3/uL (1.0-4.8) Monocytes # (Auto) 0.4 x10^3/uL (0.0-1.1) Eosinophils # (Auto) 0.2 x10^3/uL (0.0-0.7) Basophils # (Auto) 0.0 x10^3/uL (0.0-0.2) Sodium Level 143 mmol/L (136-145) Potassium Level 4.3 mmol/L (3.5-5.1) Chloride Level 104 mmol/L (98-107) Carbon Dioxide Level 29 mmol/L (21-32) Anion Gap 10 (6-14) Blood Urea Nitrogen 21 mg/dL (7-20) Creatinine 1.5 mg/dL (0.6-1.0) Estimated GFR (Cockcroft-Gault) 39.9 Glucose Level 158 mg/dL (70-99) Calcium Level 9.3 mg/dL (8.5-10.1) Test 04/22/21 16:16 04/22/21 20:45 Glucose (Fingerstick) 128 mg/dL (70-99) 183 mg/dL (70-99) Medications Current Medications Alteplase, Recombinant 7.5 ml @ 450 mls/hr 1X ONCE IV Last administered on 04/21/21at 13:34; Start 04/21/21 at 13:30; Stop 04/21/21 at 13:31; Status DC Alteplase, Recombinant 68 ml @ 68 mls/hr Q1H IV Last administered on 04/21/21at 13:38; Start 04/21/21 at 13:30; Stop 04/21/21 at 14:29; Status DC Sodium Chloride 50 ml @ 200 mls/hr 1X ONCE IV ; Start 04/21/21 at 14:30; Stop 04/21/21 at 14:44; Status DC Labetalol HCl (Normodyne Iv Push) 10 mg PRN Q10MIN PRN IVP HYPERTENSION; Start 04/21/21 at 13:45 Nicardipine HCl 50 mg/Sodium Chloride 250 ml @ 25 mls/hr CONT PRN PRN IV HYPERTENSION; Start 04/21/21 at 13:45 Acetaminophen (Tylenol) 650 mg PRN Q6HRS PRN PO MILD PAIN / TEMP > 100.3'F Last administered on 04/23/21at 01:04; Start 04/21/21 at 13:45 Acetaminophen (Tylenol Supp) 650 mg PRN Q6HRS PRN [place] MILD PAIN / TEMP > 100.3'F; Start 04/21/21 at 13:45 Ondansetron HCl (Zofran) 4 mg PRN Q6HRS PRN IVP NAUSEA/VOMITING Last administered on 04/21/21at 14:34; Start 04/21/21 at 13:45 Sodium Chloride 1,000 ml @ 1,000 mls/hr 1X ONCE IV Last administered on 04/21/21at 14:53; Start 04/21/21 at 14:45; Stop 04/21/21 at 15:44; Status DC Lorazepam (Ativan Inj) 1 mg 1X ONCE IVP Last administered on 04/21/21at 14:57; Start 04/21/21 at 14:45; Stop 04/21/21 at 14:46; Status DC Hydralazine HCl (Apresoline Inj) 10 mg PRN Q4HRS PRN IVP HYPERTENSION; Start 04/21/21 at 15:00 Carvedilol (Coreg) 12.5 mg BIDWMEALS PO ; Start 04/21/21 at 17:00; Stop 04/22/21 at 17:36; Status DC Ferrous Sulfate (Feosol) 325 mg DAILY PO ; Start 04/22/21 at 09:00; Stop 04/22/21 at 18:44; Status DC Isosorbide Mononitrate (Imdur) 30 mg DAILY PO ; Start 04/22/21 at 09:00 Citalopram Hydrobromide (CeleXA) 20 mg DAILY PO ; Start 04/22/21 at 09:00; Stop 04/22/21 at 18:44; Status DC Atorvastatin Calcium (Lipitor) 10 mg QHS PO Last administered on 04/22/21at 19:58; Start 04/21/21 at 21:00 Mirtazapine (Remeron) 30 mg QHS PO ; Start 04/21/21 at 21:00; Stop 04/22/21 at 17:36; Status DC Pantoprazole Sodium (Protonix) 40 mg DAILYAC PO ; Start 04/22/21 at 07:30; Stop 04/22/21 at 18:44; Status DC Verapamil HCl (Calan Sr) 240 mg DAILY PO ; Start 04/22/21 at 09:00; Stop 04/22/21 at 17:36; Status DC Insulin Glargine (Lantus Syringe) 10 unit QHS SQ ; Start 04/21/21 at 21:00 Insulin Human Lispro (HumaLOG) 0-7 UNITS TIDWMEALS SQ ; Start 04/21/21 at 17:00 Dextrose (Dextrose 50%-Water Syringe) 12.5 gm PRN Q15MIN PRN IV SEE COMMENTS; Start 04/21/21 at 15:00 Acetaminophen (Tylenol) 650 mg PRN Q6HRS PRN PO Headaches, Temp > 101.5'; Start 04/21/21 at 15:00; Status UNV Lorazepam (Ativan Inj) 0.5 mg PRN Q6HRS PRN IVP ANXIETY / AGITATION; Start 04/21/21 at 15:00 Lorazepam (Ativan) 1 mg PRN Q6HRS PRN PO ANXIETY / AGITATION; Start 04/21/21 at 15:00 Ondansetron HCl (Zofran) 4 mg PRN Q6HRS PRN IVP NAUSEA/VOMITING; Start 04/21/21 at 15:00; Status UNV Prochlorperazine Edisylate (Compazine) 5 mg PRN Q6HRS PRN IVP NAUSEA/VOMITING; Start 04/21/21 at 15:00 Al Hydroxide/Mg Hydroxide (Mylanta Plus Xs) 30 ml PRN Q3HRS PRN PO HEARTBURN / GAS; Start 04/21/21 at 15:00 Calcium Carbonate/ Glycine (Tums) 500 mg PRN Q3HRS PRN PO HEARTBURN / GAS; Start 04/21/21 at 15:00 Zolpidem Tartrate (Ambien) 5 mg PRN QHS PRN PO INSOMNIA, MAY REPEAT IN 1HR; Start 04/21/21 at 15:00 Sodium Chloride (Normal Saline Flush) 3 ml QSHIFT PRN IV AFTER MEDS AND BLOOD DRAWS; Start 04/21/21 at 15:00 Morphine Sulfate (Morphine Sulfate) 2 mg PRN Q1HR PRN IV PAIN Last administered on 04/23/21at 06:27; Start 04/21/21 at 15:00 Magnesium Hydroxide (Milk Of Magnesia) 2,400 mg PRN Q12HR PRN PO CONSTIPATION; Start 04/21/21 at 15:00 Aspirin (Denis Aspirin) 325 mg DAILYWBKFT PO Last administered on 04/22/21at 15:51; Start 04/22/21 at 15:00 Carvedilol (Coreg) 25 mg BIDWMEALS PO Last administered on 04/22/21at 18:35; Start 04/22/21 at 18:15 Clopidogrel Bisulfate (Plavix) 75 mg DAILY PO ; Start 04/23/21 at 09:00 Active Scripts Active Reported Levothyroxine Sodium 75 Mcg Tablet 1 Tab PO DAILY Crestor (Rosuvastatin Calcium) 5 Mg Tablet 10 Mg PO HS Furosemide 20 Mg Tablet 1 Tab PO DAILY Clopidogrel (Clopidogrel Bisulfate) 75 Mg Tablet 1 Tab PO DAILY Carvedilol 25 Mg Tablet 25 Mg PO BIDWMEALS Aspirin 81 Mg Tab.chew 1 Tab PO DAILY Isosorbide Mononitrate Er (Isosorbide Mononitrate) 30 Mg Tab.er.24h 1 Tab PO DAILY Aspirin 81 Mg Tab.chew 1 Tab PO DAILY Lisinopril 5 Mg Tablet 1 Tab PO DAILY Vitals/I & O Vital Sign - Last 24 Hours 04/22/21 04/22/21 04/22/21 04/22/21 08:14 09:03 10:06 11:03 Temp 98.4 97.7 98.4 97.7 Pulse 65 60 60 63 Resp 20 16 15 17 B/P (MAP) 134/64 (87) 172/74 (106) 132/60 (84) 198/88 (124) Pulse Ox 97 96 97 100 O2 Delivery Room Air Room Air Room Air Room Air 04/22/21 04/22/21 04/22/21 04/22/21 11:59 13:06 13:58 14:02 Pulse 62 59 60 Resp 18 22 B/P (MAP) 139/63 (88) 189/84 (119) 190/78 (115) Pulse Ox 97 97 95 97 O2 Delivery Room Air Room Air Room Air Room Air 04/22/21 04/22/21 04/22/21 04/22/21 14:45 18:35 19:24 23:26 Temp 98.0 98.6 98.3 98.0 98.6 98.3 Pulse 61 61 59 60 Resp 18 18 16 B/P (MAP) 158/71 (100) 158/71 145/66 (92) 109/60 (76) Pulse Ox 99 99 94 O2 Delivery Room Air Room Air Room Air 04/23/21 04/23/21 03:18 06:27 Temp 97.9 97.9 Pulse 69 Resp 16 B/P (MAP) 124/62 (82) Pulse Ox 96 96 O2 Delivery Room Air Intake and Output 04/22/21 04/22/21 04/23/21 15:00 23:00 07:00 Intake Total 560 ml 600 ml 300 ml Output Total 100 ml Balance 460 ml 600 ml 300 ml Justicifation of Admission Dx: Justifications for Admission: Justification of Admission Dx: Yes Stroke - Ischemic: Stroke-Ischemic RIRI BROWN MD Apr 23, 2021 07:33
--- NOTE | 2021-04-23 07:40 | NUR ---
AT SHIFT CHANGE PT WAS BACK TO HER BASELINE BUT COULD NOT REMEMBER ANYTHING THAT HAPPENED EARLIER. LCRN
[2021-04-23] MEDS: INSULIN LISPRO 300 UNITS/3 ML VIAL. SQ SCH ×3 (08:00→17:00)
[2021-04-23] MEDS: ISOSORBIDE MONONITRATE ER 30 MG TAB.ER.24H PO SCH (08:10)
[2021-04-23] MEDS: ASPIRIN 325 MG TABLET PO SCH (08:10)
[2021-04-23] MEDS: CLOPIDOGREL BISULFATE 75 MG TABLET PO SCH (08:11)
[2021-04-23] MEDS: CARVEDILOL 12.5 MG TABLET. PO SCH ×2 (08:11→18:00)
--- NOTE | 2021-04-23 10:18 | PDOC ---
PROGRESS NOTES Date of Service DATE: 04/23/21 TIME: 10:13 Assessment Problems Medical Problems: (1) Acute CVA (cerebrovascular accident) Status: Acute Early this morning had an episode of aphasia, repeat head CT negative, now back to normal, she admits that she is under stress On 02/18 had acute left hemispheric stroke with expressive aphasia and some mild hemiparesis. She received alteplase bolus and was getting the infusion when she had some blood-tinged sputum, the alteplase was stopped, patient rapidly regained her language. Patient started to stutter again daughter says, when she was discussing the status of her brother. She thinks he is . Family is telling her that he is fine. She gets upset about that. Obviously we need to keep in mind the possibility of conversion disorder. 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 We need to find out the make and model [id number] mg daily Continue statin, note favorable lipid profile PT advises SNU Discussed with daughter and patient. Subjective No complaints now Objective Vital Signs Date Time Temp Pulse Resp B/P (MAP) Pulse Ox O2 Delivery O2 Flow Rate FiO2 04/23/21 08:11 67 163/67 04/23/21 08:00 Room Air 04/23/21 07:00 97.7 16 96 97.7 Intake and Output 04/23/21 07:00 Intake Total 1460 ml Output Total 100 ml Balance 1360 ml Intake Oral 1460 ml Output Urine Total 100 ml # Voids 5 # Bowel Movements 1 PHYSICAL EXAM Alert. Oriented to time, place and person. PERRL. EOMI. CN: no focal findings. Muscle tone: normal. Muscle strength: 4/5 DTR: 1+ Plantar reflex: flexor Gait: not examined in bed. Sensory exam: no abnormal findings. No cerebellar signs elicited. Review of Relevant I have reviewed the following items geoff (where applicable) has been applied. Labs Laboratory Tests Test 04/21/21 12:39 04/21/21 12:55 04/21/21 14:11 04/21/21 17:01 Glucose (Fingerstick) 223 mg/dL (70-99) 157 mg/dL (70-99) White Blood Count 5.3 x10^3/uL (4.0-11.0) Red Blood Count 3.91 x10^6/uL (3.50-5.40) Hemoglobin 11.9 g/dL (12.0-15.5) Hematocrit 35.6 % (36.0-47.0) Mean Corpuscular Volume 91 fL (79-100) Mean Corpuscular Hemoglobin 30 pg (25-35) Mean Corpuscular Hemoglobin Concent 33 g/dL (31-37) Red Cell Distribution Width 16.3 % (11.5-14.5) Platelet Count 227 x10^3/uL (140-400) Neutrophils (%) (Auto) 35 % (31-73) Lymphocytes (%) (Auto) 51 % (24-48) Monocytes (%) (Auto) 9 % (0-9) Eosinophils (%) (Auto) 5 % (0-3) Basophils (%) (Auto) 1 % (0-3) Neutrophils # (Auto) 1.8 x10^3/uL (1.8-7.7) Lymphocytes # (Auto) 2.7 x10^3/uL (1.0-4.8) Monocytes # (Auto) 0.5 x10^3/uL (0.0-1.1) Eosinophils # (Auto) 0.2 x10^3/uL (0.0-0.7) Basophils # (Auto) 0.0 x10^3/uL (0.0-0.2) Prothrombin Time 13.5 SEC (11.7-14.0) Prothromb Time International Ratio 1.0 (0.8-1.1) Activated Partial Thromboplast Time 26 SEC (24-38) Sodium Level 140 mmol/L (136-145) Potassium Level 4.0 mmol/L (3.5-5.1) Chloride Level 102 mmol/L (98-107) Carbon Dioxide Level 29 mmol/L (21-32) Anion Gap 9 (6-14) Blood Urea Nitrogen 22 mg/dL (7-20) Creatinine 1.4 mg/dL (0.6-1.0) Estimated GFR (Cockcroft-Gault) 43.2 BUN/Creatinine Ratio 16 (6-20) Glucose Level 231 mg/dL (70-99) Calcium Level 9.9 mg/dL (8.5-10.1) Magnesium Level 2.0 mg/dL (1.8-2.4) Total Bilirubin 0.3 mg/dL (0.2-1.0) Aspartate Amino Transf (AST/SGOT) 16 U/L (15-37) Alanine Aminotransferase (ALT/SGPT) 18 U/L (14-59) Alkaline Phosphatase 76 U/L (46-116) Troponin I Quantitative < 0.017 ng/mL (0.000-0.055) Total Protein 8.3 g/dL (6.4-8.2) Albumin 3.4 g/dL (3.4-5.0) Albumin/Globulin Ratio 0.7 (1.0-1.7) Triglycerides Level 125 mg/dL (0-150) Cholesterol Level 144 mg/dL (0-200) LDL Cholesterol, Calculated 70 mg/dL (0-100) VLDL Cholesterol, Calculated 25 mg/dL (0-40) Non-HDL Cholesterol Calculated 95 mg/dL (0-129) HDL Cholesterol 49 mg/dL (40-60) Cholesterol/HDL Ratio 2.9 SARS-CoV-2 RNA (ROXIE) Negative (Negative) SARS-CoV-2 Antigen (Rapid) Negative (NEGATIVE) Test 04/21/21 22:41 04/22/21 08:00 04/22/21 08:54 04/22/21 12:05 Glucose (Fingerstick) 140 mg/dL (70-99) 117 mg/dL (70-99) 134 mg/dL (70-99) Urine Collection Type Unknown Urine Color Yellow Urine Clarity Clear Urine pH 6.0 (<5.0-8.0) Urine Specific [place] 1.015 (1.000-1.030) Urine Protein Negative mg/dL (NEG-TRACE) Urine Glucose (UA) Negative mg/dL (NEG) Urine Ketones (Stick) Negative mg/dL (NEG) Urine Blood Negative (NEG) Urine Nitrite Negative (NEG) Urine Bilirubin Negative (NEG) Urine Urobilinogen Dipstick 0.2 mg/dL (0.2 mg/dL) Urine Leukocyte Esterase Negative (NEG) Urine RBC 0 /HPF (0-2) Urine WBC 0 /HPF (0-4) Urine Squamous Epithelial Cells Few /LPF Urine Bacteria 0 /HPF (0-FEW) Test 04/22/21 14:00 04/22/21 16:16 04/22/21 20:45 04/23/21 07:38 White Blood Count 4.7 x10^3/uL (4.0-11.0) Red Blood Count 3.93 x10^6/uL (3.50-5.40) Hemoglobin 11.9 g/dL (12.0-15.5) Hematocrit 36.3 % (36.0-47.0) Mean Corpuscular Volume 92 fL (79-100) Mean Corpuscular Hemoglobin 30 pg (25-35) Mean Corpuscular Hemoglobin Concent 33 g/dL (31-37) Red Cell Distribution Width 16.3 % (11.5-14.5) Platelet Count 209 x10^3/uL (140-400) Neutrophils (%) (Auto) 35 % (31-73) Lymphocytes (%) (Auto) 53 % (24-48) Monocytes (%) (Auto) 8 % (0-9) Eosinophils (%) (Auto) 3 % (0-3) Basophils (%) (Auto) 1 % (0-3) Neutrophils # (Auto) 1.6 x10^3/uL (1.8-7.7) Lymphocytes # (Auto) 2.5 x10^3/uL (1.0-4.8) Monocytes # (Auto) 0.4 x10^3/uL (0.0-1.1) Eosinophils # (Auto) 0.2 x10^3/uL (0.0-0.7) Basophils # (Auto) 0.0 x10^3/uL (0.0-0.2) Sodium Level 143 mmol/L (136-145) Potassium Level 4.3 mmol/L (3.5-5.1) Chloride Level 104 mmol/L (98-107) Carbon Dioxide Level 29 mmol/L (21-32) Anion Gap 10 (6-14) Blood Urea Nitrogen 21 mg/dL (7-20) Creatinine 1.5 mg/dL (0.6-1.0) Estimated GFR (Cockcroft-Gault) 39.9 Glucose Level 158 mg/dL (70-99) Calcium Level 9.3 mg/dL (8.5-10.1) Glucose (Fingerstick) 128 mg/dL (70-99) 183 mg/dL (70-99) 117 mg/dL (70-99) Laboratory Tests Test 04/22/21 12:05 04/22/21 14:00 04/22/21 16:16 04/22/21 20:45 Glucose (Fingerstick) 134 mg/dL (70-99) 128 mg/dL (70-99) 183 mg/dL (70-99) White Blood Count 4.7 x10^3/uL (4.0-11.0) Red Blood Count 3.93 x10^6/uL (3.50-5.40) Hemoglobin 11.9 g/dL (12.0-15.5) Hematocrit 36.3 % (36.0-47.0) Mean Corpuscular Volume 92 fL (79-100) Mean Corpuscular Hemoglobin 30 pg (25-35) Mean Corpuscular Hemoglobin Concent 33 g/dL (31-37) Red Cell Distribution Width 16.3 % (11.5-14.5) Platelet Count 209 x10^3/uL (140-400) Neutrophils (%) (Auto) 35 % (31-73) Lymphocytes (%) (Auto) 53 % (24-48) Monocytes (%) (Auto) 8 % (0-9) Eosinophils (%) (Auto) 3 % (0-3) Basophils (%) (Auto) 1 % (0-3) Neutrophils # (Auto) 1.6 x10^3/uL (1.8-7.7) Lymphocytes # (Auto) 2.5 x10^3/uL (1.0-4.8) Monocytes # (Auto) 0.4 x10^3/uL (0.0-1.1) Eosinophils # (Auto) 0.2 x10^3/uL (0.0-0.7) Basophils # (Auto) 0.0 x10^3/uL (0.0-0.2) Sodium Level 143 mmol/L (136-145) Potassium Level 4.3 mmol/L (3.5-5.1) Chloride Level 104 mmol/L (98-107) Carbon Dioxide Level 29 mmol/L (21-32) Anion Gap 10 (6-14) Blood Urea Nitrogen 21 mg/dL (7-20) Creatinine 1.5 mg/dL (0.6-1.0) Estimated GFR (Cockcroft-Gault) 39.9 Glucose Level 158 mg/dL (70-99) Calcium Level 9.3 mg/dL (8.5-10.1) Test 04/23/21 07:38 Glucose (Fingerstick) 117 mg/dL (70-99) Medications Current Medications Alteplase, Recombinant 7.5 ml @ 450 mls/hr 1X ONCE IV Last administered on 04/21/21at 13:34; Start 04/21/21 at 13:30; Stop 04/21/21 at 13:31; Status DC Alteplase, Recombinant 68 ml @ 68 mls/hr Q1H IV Last administered on 04/21/21at 13:38; Start 04/21/21 at 13:30; Stop 04/21/21 at 14:29; Status DC Sodium Chloride 50 ml @ 200 mls/hr 1X ONCE IV ; Start 04/21/21 at 14:30; Stop 04/21/21 at 14:44; Status DC Labetalol HCl (Normodyne Iv Push) 10 mg PRN Q10MIN PRN IVP HYPERTENSION; Start 04/21/21 at 13:45 Nicardipine HCl 50 mg/Sodium Chloride 250 ml @ 25 mls/hr CONT PRN PRN IV HYPERTENSION; Start 04/21/21 at 13:45 Acetaminophen (Tylenol) 650 mg PRN Q6HRS PRN PO MILD PAIN / TEMP > 100.3'F Last administered on 04/23/21at 01:04; Start 04/21/21 at 13:45 Acetaminophen (Tylenol Supp) 650 mg PRN Q6HRS PRN [place] MILD PAIN / TEMP > 100.3'F; Start 04/21/21 at 13:45 Ondansetron HCl (Zofran) 4 mg PRN Q6HRS PRN IVP NAUSEA/VOMITING Last administered on 04/21/21at 14:34; Start 04/21/21 at 13:45 Sodium Chloride 1,000 ml @ 1,000 mls/hr 1X ONCE IV Last administered on 04/21/21at 14:53; Start 04/21/21 at 14:45; Stop 04/21/21 at 15:44; Status DC Lorazepam (Ativan Inj) 1 mg 1X ONCE IVP Last administered on 04/21/21at 14:57; Start 04/21/21 at 14:45; Stop 04/21/21 at 14:46; Status DC Hydralazine HCl (Apresoline Inj) 10 mg PRN Q4HRS PRN IVP HYPERTENSION; Start 04/21/21 at 15:00 Carvedilol (Coreg) 12.5 mg BIDWMEALS PO ; Start 04/21/21 at 17:00; Stop 04/22/21 at 17:36; Status DC Ferrous Sulfate (Feosol) 325 mg DAILY PO ; Start 04/22/21 at 09:00; Stop 04/22/21 at 18:44; Status DC Isosorbide Mononitrate (Imdur) 30 mg DAILY PO Last administered on 04/23/21at 08:10; Start 04/22/21 at 09:00 Citalopram Hydrobromide (CeleXA) 20 mg DAILY PO ; Start 04/22/21 at 09:00; Stop 04/22/21 at 18:44; Status DC Atorvastatin Calcium (Lipitor) 10 mg QHS PO Last administered on 04/22/21at 19:58; Start 04/21/21 at 21:00 Mirtazapine (Remeron) 30 mg QHS PO ; Start 04/21/21 at 21:00; Stop 04/22/21 at 17:36; Status DC Pantoprazole Sodium (Protonix) 40 mg DAILYAC PO ; Start 04/22/21 at 07:30; Stop 04/22/21 at 18:44; Status DC Verapamil HCl (Calan Sr) 240 mg DAILY PO ; Start 04/22/21 at 09:00; Stop 04/22/21 at 17:36; Status DC Insulin Glargine (Lantus Syringe) 10 unit QHS SQ ; Start 04/21/21 at 21:00 Insulin Human Lispro (HumaLOG) 0-7 UNITS TIDWMEALS SQ ; Start 04/21/21 at 17:00 Dextrose (Dextrose 50%-Water Syringe) 12.5 gm PRN Q15MIN PRN IV SEE COMMENTS; Start 04/21/21 at 15:00 Acetaminophen (Tylenol) 650 mg PRN Q6HRS PRN PO Headaches, Temp > 101.5'; Start 04/21/21 at 15:00; Status UNV Lorazepam (Ativan Inj) 0.5 mg PRN Q6HRS PRN IVP ANXIETY / AGITATION; Start 04/21/21 at 15:00 Lorazepam (Ativan) 1 mg PRN Q6HRS PRN PO ANXIETY / AGITATION; Start 04/21/21 at 15:00 Ondansetron HCl (Zofran) 4 mg PRN Q6HRS PRN IVP NAUSEA/VOMITING; Start 04/21/21 at 15:00; Status UNV Prochlorperazine Edisylate (Compazine) 5 mg PRN Q6HRS PRN IVP NAUSEA/VOMITING; Start 04/21/21 at 15:00 Al Hydroxide/Mg Hydroxide (Mylanta Plus Xs) 30 ml PRN Q3HRS PRN PO HEARTBURN / GAS; Start 04/21/21 at 15:00 Calcium Carbonate/ Glycine (Tums) 500 mg PRN Q3HRS PRN PO HEARTBURN / GAS; Start 04/21/21 at 15:00 Zolpidem Tartrate (Ambien) 5 mg PRN QHS PRN PO INSOMNIA, MAY REPEAT IN 1HR; Start 04/21/21 at 15:00 Sodium Chloride (Normal Saline Flush) 3 ml QSHIFT PRN IV AFTER MEDS AND BLOOD DRAWS; Start 04/21/21 at 15:00 Morphine Sulfate (Morphine Sulfate) 2 mg PRN Q1HR PRN IV PAIN Last administered on 04/23/21at 06:27; Start 04/21/21 at 15:00 Magnesium Hydroxide (Milk Of Magnesia) 2,400 mg PRN Q12HR PRN PO CONSTIPATION; Start 04/21/21 at 15:00 Aspirin (Denis Aspirin) 325 mg DAILYWBKFT PO Last administered on 04/23/21at 08:10; Start 04/22/21 at 15:00 Carvedilol (Coreg) 25 mg BIDWMEALS PO Last administered on 04/23/21at 08:11; Start 04/22/21 at 18:15 Clopidogrel Bisulfate (Plavix) 75 mg DAILY PO Last administered on 04/23/21at 08:11; Start 04/23/21 at 09:00 Levothyroxine Sodium (Synthroid) 75 mcg DAILY06 PO ; Start 04/23/21 at 10:15 Active Scripts Active Reported Levothyroxine Sodium 75 Mcg Tablet 1 Tab PO DAILY Crestor (Rosuvastatin Calcium) 5 Mg Tablet 10 Mg PO HS Furosemide 20 Mg Tablet 1 Tab PO DAILY Clopidogrel (Clopidogrel Bisulfate) 75 Mg Tablet 1 Tab PO DAILY Carvedilol 25 Mg Tablet 25 Mg PO BIDWMEALS Aspirin 81 Mg Tab.chew 1 Tab PO DAILY Isosorbide Mononitrate Er (Isosorbide Mononitrate) 30 Mg Tab.er.24h 1 Tab PO DAILY Aspirin 81 Mg Tab.chew 1 Tab PO DAILY Lisinopril 5 Mg Tablet 1 Tab PO DAILY Vitals/I & O Vital Sign - Last 24 Hours 04/22/21 04/22/21 04/22/21 04/22/21 11:03 11:59 13:06 13:58 Temp 97.7 97.7 Pulse 63 62 59 Resp 17 18 22 B/P (MAP) 198/88 (124) 139/63 (88) 189/84 (119) Pulse Ox 100 97 97 95 O2 Delivery Room Air Room Air Room Air Room Air 04/22/21 04/22/21 04/22/21 04/22/21 14:02 14:45 18:35 19:24 Temp 98.0 98.6 98.0 98.6 Pulse 60 61 61 59 Resp 22 18 18 B/P (MAP) 190/78 (115) 158/71 (100) 158/71 145/66 (92) Pulse Ox 97 99 99 O2 Delivery Room Air Room Air Room Air 04/22/21 04/23/21 04/23/21 04/23/21 23:26 03:18 06:27 07:00 Temp 98.3 97.9 97.7 98.3 97.9 97.7 Pulse 60 69 59 Resp 16 16 16 B/P (MAP) 109/60 (76) 124/62 (82) 163/67 (99) Pulse Ox 94 96 96 96 O2 Delivery Room Air Room Air Room Air 04/23/21 04/23/21 04/23/21 08:00 08:10 08:11 Pulse 65 67 B/P (MAP) 163/67 163/67 O2 Delivery Room Air Intake and Output 04/22/21 04/22/21 04/23/21 15:00 23:00 07:00 Intake Total 560 ml 600 ml 300 ml Output Total 100 ml Balance 460 ml 600 ml [address] head without IV contrast, 04/23/2021 6:10 AM Neither mass, midline shift, intracranial hemorrhage, acute/subacute ischemic, nor extraaxial fluid collections are seen. Mild brain parenchymal volume loss. Supratentorial periventricular white matter hypodensities, indeterminate but most likely representing chronic microangiopathic disease. The paranasal sinuses, mastoid air cells, and middle ears are clear.The orbital contents appear within normal limits. IMPRESSION: 1. No evidence of acute intracranial abnormality. 2. Similar supratentorial periventricular white matter hypodensities, indeterminate but most likely representing chronic microangiopathic disease. Justicifation of Admission Dx: Justifications for Admission: Justification of Admission Dx: Yes Stroke - Ischemic: Stroke-Ischemic BO MARROQUIN MD Apr 23, 2021 10:18
[2021-04-23] MEDS: LEVOTHYROXINE 75 MCG TABLET PO SCH (11:09)
--- NOTE | 2021-04-23 12:34 | NUR ---
SS following for discharge planning. SS reviewed pt chart and discussed with pt RN. Pt is from home with daughter and is currently on room air. COVID19 negative. PT/OT ordered. PT recommended nursing home unit. Pt has had both COVID19 vaccinations on December 01, 2020 and December 22, 2020. SS contacted pt's daughter and discussed discharge planning and nursing home unit. PT recommended nursing home unit. [facility] ; fax [phone], per daughter request. Pt accepted at [facility] pending insurance authorization. SS will continue to follow for discharge planning.
[2021-04-23] MEDS: ASA/APAP/CAFFEINE 250/250/65MG TABLET. PO PRN (12:52)
[2021-04-23] MEDS: IV DEXTROSE 5 %-0.45 % NACL 500 ML IV SCH ×2 (12:55→13:00)
--- NOTE | 2021-04-23 13:00 | NUR ---
Around 1100 patient started complaining of a severe headache, administered Tylenol. Patient called again around 1230 still complaining of headache, BP was 75/46 HR 60, patient having some expressive aphasia. Dr. Singh on floor & notified. Order received for Excedrin Migraine which was administered. Bolus ordered as well for hypotension, IV had came out however, & by the time new IV placed patient's BP was 154/71, so bolus was not given. Morphine then administered because patient still rating headache 04/16. Dr. Singh & Dr. Barnett updated on situation. Going to try Fiorcet for headache next. BP seems to go up & down & when patient's headache is present she has expressive aphasia. Will continue to monitor.
[2021-04-23] MEDS: BUTALB/APAP/CAFEIN 50/325/40MG TABLET. PO PRN (17:00)
--- NOTE | 2021-04-23 19:02 | NUR ---
Dr. Singh updated on patient's headache & speech difficulties again this evening. Will continue to monitor.
[2021-04-23] MEDS: ATORVASTATIN CALCIUM 10 MG TABLET. PO SCH (20:55)
[2021-04-23] MEDS: INSULIN GLARGINE SYRINGE. SQ SCH (21:10)
[2021-04-24 02:33] VITALS: BP 92/51
[2021-04-24] MEDS: ACETAMINOPHEN 325 MG TABLET. PO PRN (03:34)
[2021-04-24] MEDS: LEVOTHYROXINE 75 MCG TABLET PO SCH (06:11)
[2021-04-24 07:00] VITALS: BP 125/62
[2021-04-24] MEDS: INSULIN LISPRO 300 UNITS/3 ML VIAL. SQ SCH ×3 (08:00→17:00)
[2021-04-24] MEDS: ISOSORBIDE MONONITRATE ER 30 MG TAB.ER.24H PO SCH (08:18)
[2021-04-24] MEDS: CLOPIDOGREL BISULFATE 75 MG TABLET PO SCH (08:18)
[2021-04-24] MEDS: ASPIRIN 325 MG TABLET PO SCH (08:18)
[2021-04-24] MEDS: CARVEDILOL 12.5 MG TABLET. PO SCH ×2 (08:19→17:35)
--- NOTE | 2021-04-24 10:05 | PDOC ---
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 We will admit patient to ICU for monitoring over the next [address] head in the morning Lipid panel did not show significant abnormality Post tPA, goal blood pressure 180/105 mmHg (hydralazine, nicardipine infusion as needed to maintain goal blood pressure) Dual antiplatelet therapy for >24 hours Basal/prandial insulin Baseline kidney function from 01/03/2018 showed BUN 15, creatinine 0.19. Resume home medications FEN - Cardiac diet PPX - SCDs DNR Dispo - inpatient for above Patient names her daughter (Donya Banuelos) as surrogate decision-maker History of Present Illness History of Present Illness Patient is 85-year-old female with past medical history hemorrhagic CVA, [place], CAD, DM 2, HTN, HLD, presents to the ED after sudden onset altered mental status noted by her family this morning. Brought to the ED by daughter who stated that she was confused and unable to speak; reportedly trying to speak but was able to get words out. 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 Labs on admission showed hemoglobin 11.9, hematocrit 35.6, BUN 22, creatinine 1.4, CBG 231, troponin <0.017. CT head on admission showed no acute intracranial finding, bilateral cerebral white matter changes due to chronic small vessel disease, cerebral volume loss. NIH score 10. Patient's daughter notes anaphylactic allergy to contrast dye. 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 Neurology was consulted in the ED and recommended tPA. Will admit patient to ICU for further medical management. 04/22/2021: Patient seen while still in the ED. Clinically she is doing much better this morning, she is able to tell me her name and knows where she is. Discussed with RN, tPA had to be stopped after roughly 90% of infusion was complete due to complaints of headache and blood-tinged sputum. CT head was repeated last night due to concerns of headache post tPA; repeat CT showed no acute abnormality. Will repeat CT head again today, per Dr. Pedraza's recommendations. NPO until seen by ST today. Will order repeat CBC and BMP. PT/OT modalities. Critical care time 30 minutes spent reviewing charts, reviewing labs, reviewing imaging, discussion with RN. 04/23/2021: she is doing much better this morning, she is able to tell me her name and knows where she is. Discussed with RN, tPA had to be stopped after roughly 90% of infusion was complete due to complaints of headache and blood-tinged sputum. CT head was repeated 9-15 PM due to concerns of headache post tPA; repeat CT showed no acute abnormality. Will order repeat CBC and BMP. PT/OT modalities. 30 minutes spent reviewing charts, reviewing labs, reviewing imaging, discussion with RN. Early this morning had an episode of aphasia, repeat head CT negative 04/24/2021: she is doing much better this morning, she is able to tell me her name and knows where she is. Discussed with RN, tPA had to be stopped after roughly 90% of infusion was complete due to complaints of headache and blood-tinged sputum. CT head was repeated 9-15 PM due to concerns of headache post tPA; repeat CT showed no acute abnormality. repeat CBC and BMP. PT/OT modalities. 27 minutes spent reviewing charts, reviewing labs, reviewing imaging, discussion with RN. Early this morning had an episode of aphasia, repeat head CT negative Vitals Vitals Vital Signs Date Time Temp Pulse Resp B/P (MAP) Pulse Ox O2 Delivery O2 Flow Rate FiO2 04/24/21 08:19 60 125/62 04/24/21 07:00 98.1 16 98 Room Air 98.1 Physical Exam General: Alert, Cooperative, No acute distress Heart: Regular rate Lungs: Clear Abdomen: Soft, No tenderness Extremities: No clubbing Skin: No rashes, No breakdown Labs LABS * Response to training Problem List (body system elements) * Impaired fnctnl mobility * Strength * Balance * Pain Pt/caregiver agrees with plan of care/goals * Yes Patient condition at conclusion of therapy * Pt in chair * Personal alarm on * Call light in reach * PtIn no apparent distress * Pt denies further needs Communicated Patient Care With (Name, Title) * KIMBERLEE Jasso Goal 2 - Transfers Assistance Required * Independent Goal 2 - Transfer Type * Sit to Stand Goal 2 Assessment * Appropriate - Continue Goal 3 - Ambulation Assistance Required * Independent Goal 3 - Ambulation Distance * 100' Goal 3 - Ambulation Device * Roller Walker Goal 3 Assessment * Appropriate - Continue Goal 4 - Stairs Assistance Required * Stand-by Assistance Goal 4 - Number of Stairs * >9 Goal 4 - Device on Stairs * Rail on Right * Rail on Left Goal 4 Assessment * Appropriate - Continue Treatment Plan * Therapeutic Exercise * Transfer training * Gait Training * Dynamic Balance Training Frequency of Treatment Expected * 5 visits/week Duration of Treatment Expected * 2 weeks Discharge Recommendations * Assisted Unit Laboratory Tests Test 04/23/21 11:42 04/23/21 16:25 04/23/21 21:00 04/24/21 08:16 Glucose (Fingerstick) 158 mg/dL (70-99) 112 mg/dL (70-99) 181 mg/dL (70-99) 111 mg/dL (70-99) Assessment and Plan Assessmemt and Plan Problems Medical Problems: (1) Acute CVA (cerebrovascular accident) Status: Acute Comment Review of Relevant I have reviewed the following items geoff (where applicable) has been applied. Labs Laboratory Tests Test 04/22/21 12:05 04/22/21 14:00 04/22/21 16:16 04/22/21 20:45 Glucose (Fingerstick) 134 mg/dL (70-99) 128 mg/dL (70-99) 183 mg/dL (70-99) White Blood Count 4.7 x10^3/uL (4.0-11.0) Red Blood Count 3.93 x10^6/uL (3.50-5.40) Hemoglobin 11.9 g/dL (12.0-15.5) Hematocrit 36.3 % (36.0-47.0) Mean Corpuscular Volume 92 fL (79-100) Mean Corpuscular Hemoglobin 30 pg (25-35) Mean Corpuscular Hemoglobin Concent 33 g/dL (31-37) Red Cell Distribution Width 16.3 % (11.5-14.5) Platelet Count 209 x10^3/uL (140-400) Neutrophils (%) (Auto) 35 % (31-73) Lymphocytes (%) (Auto) 53 % (24-48) Monocytes (%) (Auto) 8 % (0-9) Eosinophils (%) (Auto) 3 % (0-3) Basophils (%) (Auto) 1 % (0-3) Neutrophils # (Auto) 1.6 x10^3/uL (1.8-7.7) Lymphocytes # (Auto) 2.5 x10^3/uL (1.0-4.8) Monocytes # (Auto) 0.4 x10^3/uL (0.0-1.1) Eosinophils # (Auto) 0.2 x10^3/uL (0.0-0.7) Basophils # (Auto) 0.0 x10^3/uL (0.0-0.2) Sodium Level 143 mmol/L (136-145) Potassium Level 4.3 mmol/L (3.5-5.1) Chloride Level 104 mmol/L (98-107) Carbon Dioxide Level 29 mmol/L (21-32) Anion Gap 10 (6-14) Blood Urea Nitrogen 21 mg/dL (7-20) Creatinine 1.5 mg/dL (0.6-1.0) Estimated GFR (Cockcroft-Gault) 39.9 Glucose Level 158 mg/dL (70-99) Calcium Level 9.3 mg/dL (8.5-10.1) Test 04/23/21 07:38 04/23/21 11:42 04/23/21 16:25 04/23/21 21:00 Glucose (Fingerstick) 117 mg/dL (70-99) 158 mg/dL (70-99) 112 mg/dL (70-99) 181 mg/dL (70-99) Test 04/24/21 08:16 Glucose (Fingerstick) 111 mg/dL (70-99) Laboratory Tests Test 04/23/21 11:42 04/23/21 16:25 04/23/21 21:00 04/24/21 08:16 Glucose (Fingerstick) 158 mg/dL (70-99) 112 mg/dL (70-99) 181 mg/dL (70-99) 111 mg/dL (70-99) Medications Current Medications Alteplase, Recombinant 7.5 ml @ 450 mls/hr 1X ONCE IV Last administered on 04/21/21at 13:34; Start 04/21/21 at 13:30; Stop 04/21/21 at 13:31; Status DC Alteplase, Recombinant 68 ml @ 68 mls/hr Q1H IV Last administered on 04/21/21at 13:38; Start 04/21/21 at 13:30; Stop 04/21/21 at 14:29; Status DC Sodium Chloride 50 ml @ 200 mls/hr 1X ONCE IV ; Start 04/21/21 at 14:30; Stop 04/21/21 at 14:44; Status DC Labetalol HCl (Normodyne Iv Push) 10 mg PRN Q10MIN PRN IVP HYPERTENSION; Start 04/21/21 at 13:45 Nicardipine HCl 50 mg/Sodium Chloride 250 ml @ 25 mls/hr CONT PRN PRN IV HYPERTENSION; Start 04/21/21 at 13:45 Acetaminophen (Tylenol) 650 mg PRN Q6HRS PRN PO MILD PAIN / TEMP > 100.3'F Last administered on 04/24/21at 03:34; Start 04/21/21 at 13:45 Acetaminophen (Tylenol Supp) 650 mg PRN Q6HRS PRN [place] MILD PAIN / TEMP > 100.3'F; Start 04/21/21 at 13:45 Ondansetron HCl (Zofran) 4 mg PRN Q6HRS PRN IVP NAUSEA/VOMITING Last administered on 04/21/21at 14:34; Start 04/21/21 at 13:45 Sodium Chloride 1,000 ml @ 1,000 mls/hr 1X ONCE IV Last administered on 04/21/21at 14:53; Start 04/21/21 at 14:45; Stop 04/21/21 at 15:44; Status DC Lorazepam (Ativan Inj) 1 mg 1X ONCE IVP Last administered on 04/21/21at 14:57; Start 04/21/21 at 14:45; Stop 04/21/21 at 14:46; Status DC Hydralazine HCl (Apresoline Inj) 10 mg PRN Q4HRS PRN IVP HYPERTENSION; Start 04/21/21 at 15:00 Carvedilol (Coreg) 12.5 mg BIDWMEALS PO ; Start 04/21/21 at 17:00; Stop 04/22/21 at 17:36; Status DC Ferrous Sulfate (Feosol) 325 mg DAILY PO ; Start 04/22/21 at 09:00; Stop 04/22/21 at 18:44; Status DC Isosorbide Mononitrate (Imdur) 30 mg DAILY PO Last administered on 04/24/21at 08:18; Start 04/22/21 at 09:00 Citalopram Hydrobromide (CeleXA) 20 mg DAILY PO ; Start 04/22/21 at 09:00; Stop 04/22/21 at 18:44; Status DC Atorvastatin Calcium (Lipitor) 10 mg QHS PO Last administered on 04/23/21at 20:55; Start 04/21/21 at 21:00 Mirtazapine (Remeron) 30 mg QHS PO ; Start 04/21/21 at 21:00; Stop 04/22/21 at 17:36; Status DC Pantoprazole Sodium (Protonix) 40 mg DAILYAC PO ; Start 04/22/21 at 07:30; Stop 04/22/21 at 18:44; Status DC Verapamil HCl (Calan Sr) 240 mg DAILY PO ; Start 04/22/21 at 09:00; Stop 04/22/21 at 17:36; Status DC Insulin Glargine (Lantus Syringe) 10 unit QHS SQ Last administered on 04/23/21at 21:10; Start 04/21/21 at 21:00 Insulin Human Lispro (HumaLOG) 0-7 UNITS TIDWMEALS SQ ; Start 04/21/21 at 17:00 Dextrose (Dextrose 50%-Water Syringe) 12.5 gm PRN Q15MIN PRN IV SEE COMMENTS; Start 04/21/21 at 15:00 Acetaminophen (Tylenol) 650 mg PRN Q6HRS PRN PO Headaches, Temp > 101.5'; Start 04/21/21 at 15:00; Status UNV Lorazepam (Ativan Inj) 0.5 mg PRN Q6HRS PRN IVP ANXIETY / AGITATION; Start 04/21/21 at 15:00 Lorazepam (Ativan) 1 mg PRN Q6HRS PRN PO ANXIETY / AGITATION; Start 04/21/21 at 15:00 Ondansetron HCl (Zofran) 4 mg PRN Q6HRS PRN IVP NAUSEA/VOMITING; Start 04/21/21 at 15:00; Status UNV Prochlorperazine Edisylate (Compazine) 5 mg PRN Q6HRS PRN IVP NAUSEA/VOMITING 2ND CHOICE; Start 04/21/21 at 15:00 Al Hydroxide/Mg Hydroxide (Mylanta Plus Xs) 30 ml PRN Q3HRS PRN PO HEARTBURN / GAS; Start 04/21/21 at 15:00 Calcium Carbonate/ Glycine (Tums) 500 mg PRN Q3HRS PRN PO HEARTBURN / GAS; Start 04/21/21 at 15:00 Zolpidem Tartrate (Ambien) 5 mg PRN QHS PRN PO INSOMNIA, MAY REPEAT IN 1HR; Start 04/21/21 at 15:00 Sodium Chloride (Normal Saline Flush) 3 ml QSHIFT PRN IV AFTER MEDS AND BLOOD DRAWS; Start 04/21/21 at 15:00 Morphine Sulfate (Morphine Sulfate) 2 mg PRN Q1HR PRN IV PAIN Last administered on 04/23/21at 20:56; Start 04/21/21 at 15:00 Magnesium Hydroxide (Milk Of Magnesia) 2,400 mg PRN Q12HR PRN PO CONSTIPATION; Start 04/21/21 at 15:00 Aspirin (Denis Aspirin) 325 mg DAILYWBKFT PO Last administered on 04/24/21at 08:18; Start 04/22/21 at 15:00 Carvedilol (Coreg) 25 mg BIDWMEALS PO Last administered on 04/24/21at 08:19; Start 04/22/21 at 18:15 Clopidogrel Bisulfate (Plavix) 75 mg DAILY PO Last administered on 04/24/21at 08:18; Start 04/23/21 at 09:00 Levothyroxine Sodium (Synthroid) 75 mcg DAILY06 PO Last administered on 04/24/21at 06:11; Start 04/23/21 at 10:15 Acetaminophen/ Aspirin/Caffeine (Excedrin Migraine) 1 tab PRN Q6HRS PRN PO MIGRAINE HEADACHE Last administered on 04/23/21at 12:52; Start 04/23/21 at 12:45 Dextrose/Sodium Chloride 500 ml @ 1,000 mls/hr Q30M IV ; Start 04/23/21 at 13:00; Stop 04/23/21 at 16:27; Status DC Acetaminophen/ Butalbital/ Caffeine (Fioricet) 1 tab PRN Q6HRS PRN PO MIGRAINE HEADACHE Last administered on 04/23/21at 17:00; Start 04/23/21 at 16:00 Active Scripts Active Reported Levothyroxine Sodium 75 Mcg Tablet 1 Tab PO DAILY Crestor (Rosuvastatin Calcium) 5 Mg Tablet 10 Mg PO HS Furosemide 20 Mg Tablet 1 Tab PO DAILY Clopidogrel (Clopidogrel Bisulfate) 75 Mg Tablet 1 Tab PO DAILY Carvedilol 25 Mg Tablet 25 Mg PO BIDWMEALS Aspirin 81 Mg Tab.chew 1 Tab PO DAILY Isosorbide Mononitrate Er (Isosorbide Mononitrate) 30 Mg Tab.er.24h 1 Tab PO DAILY Aspirin 81 Mg Tab.chew 1 Tab PO DAILY Lisinopril 5 Mg Tablet 1 Tab PO DAILY Vitals/I & O Vital Sign - Last 24 Hours 04/23/21 04/23/21 04/23/21 04/23/21 11:00 12:39 12:42 12:45 Temp 98.6 98.6 Pulse 65 61 61 64 Resp 16 B/P (MAP) 101/56 (71) 75/46 (56) 81/55 (64) 94/50 (65) Pulse Ox 99 O2 Delivery Room Air 04/23/21 04/23/21 04/23/21 04/23/21 12:58 14:42 14:50 14:51 Pulse 60 60 60 B/P (MAP) 103/57 (72) 154/71 (98) 191/79 (116) O2 Delivery Room Air 04/23/21 04/23/21 04/23/21 04/23/21 14:53 15:00 15:21 15:58 Temp 98.5 98.5 Pulse 60 59 60 Resp 16 B/P (MAP) 151/70 (97) 154/81 (105) 113/59 (77) Pulse Ox 95 O2 Delivery Room Air Room Air 04/23/21 04/23/21 04/23/21 04/23/21 18:00 19:00 19:35 20:56 Temp 98.3 98.3 Pulse 59 62 Resp 18 20 B/P (MAP) 145/77 160/68 (98) Pulse Ox 98 O2 Delivery Room Air Room Air Room Air 04/23/21 04/23/21 04/24/21 04/24/21 21:26 22:41 02:33 07:00 Temp 98.0 98.1 98.1 98.0 98.1 98.1 Pulse 65 60 60 Resp 20 16 16 16 B/P (MAP) 138/63 (88) 92/51 (65) 125/62 (83) Pulse Ox 97 99 98 O2 Delivery Room Air Room Air Room Air Room Air 04/24/21 04/24/21 08:18 08:19 Pulse 60 60 B/P (MAP) 125/62 125/62 Intake and Output 04/23/21 04/23/21 04/24/21 15:00 23:00 07:00 Intake Total 540 ml 180 ml 360 ml Output Total 400 ml Balance 540 ml 180 ml -40 ml Justicifation of Admission Dx: Justifications for Admission: Justification of Admission Dx: Yes Stroke - Ischemic: Stroke-Ischemic RIRI BROWN MD Apr 24, 2021 10:05
[2021-04-24 10:10] VITALS: BP 96/54
[2021-04-24] MEDS: ASA/APAP/CAFFEINE 250/250/65MG TABLET. PO PRN ×2 (11:27→17:34)
[2021-04-24] MEDS: BUTALB/APAP/CAFEIN 50/325/40MG TABLET. PO PRN ×2 (13:56→21:19)
--- NOTE | 2021-04-24 14:32 | PDOC ---
PROGRESS NOTES Date of Service DATE: 04/24/21 TIME: 14:29 Assessment Problems Medical Problems: (1) Acute CVA (cerebrovascular accident) Status: Acute Continues to have episodes of aphasia, stuttering speech, admits that she is under stress On 02/18 had acute left hemispheric stroke with expressive aphasia and some mild hemiparesis. She received alteplase bolus and was getting the infusion when she had some blood-tinged sputum, the alteplase was stopped, patient rapidly regained her language. Patient started to stutter again daughter says, when she was discussing the status of her brother. She thinks he is . Family is telling her that he is fine. She gets upset about that. Continued headaches, I doubt that she has, for example, reversible cerebral vasoconstriction syndrome but will of course keep this in mind. She claims 8/10 headache but appears to be in no distress whatsoever. Daughter agrees with my assessment. Obviously we need to keep in mind the possibility of conversion disorder. 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 We need to find out the make and model [id number] mg daily Continue statin, note favorable lipid profile PT advises [facility], okay to transfer to there on 03/26 I doubt that transfer to a tertiary center would be helpful. If she is having a stroke rather than conversion reaction, this would be branch vessel disease probably not amenable to any type of intervention. We have already given her alteplase. Discussed with daughter and patient. Subjective Complains of 8/10 headache, appears to be in no acute distress. Objective Vital Signs Date Time Temp Pulse Resp B/P (MAP) Pulse Ox O2 Delivery O2 Flow Rate FiO2 04/24/21 10:10 98.2 58 16 96/54 (68) 97 Room Air 98.2 Intake and Output 04/24/21 07:00 Intake Total 1080 ml Output Total 400 ml Balance 680 ml Intake Oral 1080 ml Output Urine Total 400 ml # Voids 1 # Bowel Movements 1 PHYSICAL EXAM Alert. Oriented to time, place and person. PERRL. EOMI. CN: no focal findings. Muscle tone: normal. Muscle strength: 4/5 DTR: 1+ Plantar reflex: flexor Gait: not examined in bed. Sensory exam: no abnormal findings. No cerebellar signs elicited. Review of Relevant I have reviewed the following items geoff (where applicable) has been applied. Labs Laboratory Tests Test 04/22/21 16:16 04/22/21 20:45 04/23/21 07:38 04/23/21 11:42 Glucose (Fingerstick) 128 mg/dL (70-99) 183 mg/dL (70-99) 117 mg/dL (70-99) 158 mg/dL (70-99) Test 04/23/21 16:25 04/23/21 21:00 04/24/21 08:16 Glucose (Fingerstick) 112 mg/dL (70-99) 181 mg/dL (70-99) 111 mg/dL (70-99) Laboratory Tests Test 04/23/21 16:25 04/23/21 21:00 04/24/21 08:16 Glucose (Fingerstick) 112 mg/dL (70-99) 181 mg/dL (70-99) 111 mg/dL (70-99) Medications Current Medications Alteplase, Recombinant 7.5 ml @ 450 mls/hr 1X ONCE IV Last administered on 04/21/21at 13:34; Start 04/21/21 at 13:30; Stop 04/21/21 at 13:31; Status DC Alteplase, Recombinant 68 ml @ 68 mls/hr Q1H IV Last administered on 04/21/21at 13:38; Start 04/21/21 at 13:30; Stop 04/21/21 at 14:29; Status DC Sodium Chloride 50 ml @ 200 mls/hr 1X ONCE IV ; Start 04/21/21 at 14:30; Stop 04/21/21 at 14:44; Status DC Labetalol HCl (Normodyne Iv Push) 10 mg PRN Q10MIN PRN IVP HYPERTENSION; Start 04/21/21 at 13:45 Nicardipine HCl 50 mg/Sodium Chloride 250 ml @ 25 mls/hr CONT PRN PRN IV HYPERTENSION; Start 04/21/21 at 13:45 Acetaminophen (Tylenol) 650 mg PRN Q6HRS PRN PO MILD PAIN / TEMP > 100.3'F Last administered on 04/24/21at 03:34; Start 04/21/21 at 13:45 Acetaminophen (Tylenol Supp) 650 mg PRN Q6HRS PRN [place] MILD PAIN / TEMP > 100.3'F; Start 04/21/21 at 13:45 Ondansetron HCl (Zofran) 4 mg PRN Q6HRS PRN IVP NAUSEA/VOMITING Last administ ered on 04/21/21at 14:34; Start 04/21/21 at 13:45 Sodium Chloride 1,000 ml @ 1,000 mls/hr 1X ONCE IV Last administered on 04/21at 14:53; Start 04/21/21 at 14:45; Stop 04/21/21 at 15:44; Status DC Lorazepam (Ativan Inj) 1 mg 1X ONCE IVP Last administered on 04/21/21at 14:57; Start 04/21/21 at 14:45; Stop 04/21/21 at 14:46; Status DC Hydralazine HCl (Apresoline Inj) 10 mg PRN Q4HRS PRN IVP HYPERTENSION; Start 04/21/21 at 15:00 Carvedilol (Coreg) 12.5 mg BIDWMEALS PO ; Start 04/21/21 at 17:00; Stop 04/22/21 at 17:36; Status DC Ferrous Sulfate (Feosol) 325 mg DAILY PO ; Start 04/22/21 at 09:00; Stop 04/22/21 at 18:44; Status DC Isosorbide Mononitrate (Imdur) 30 mg DAILY PO Last administered on 04/24/21at 08:18; Start 04/22/21 at 09:00 Citalopram Hydrobromide (CeleXA) 20 mg DAILY PO ; Start 04/22/21 at 09:00; Stop 04/22/21 at 18:44; Status DC Atorvastatin Calcium (Lipitor) 10 mg QHS PO Last administered on 04/23/21at 20:55; Start 04/21/21 at 21:00 Mirtazapine (Remeron) 30 mg QHS PO ; Start 04/21/21 at 21:00; Stop 04/22/21 at 17:36; Status DC Pantoprazole Sodium (Protonix) 40 mg DAILYAC PO ; Start 04/22/21 at 07:30; Stop 04/22/21 at 18:44; Status DC Verapamil HCl (Calan Sr) 240 mg DAILY PO ; Start 04/22/21 at 09:00; Stop 04/22/21 at 17:36; Status DC Insulin Glargine (Lantus Syringe) 10 unit QHS SQ Last administered on 04/23/21at 21:10; Start 04/21/21 at 21:00 Insulin Human Lispro (HumaLOG) 0-7 UNITS TIDWMEALS SQ ; Start 04/21/21 at 17:00 Dextrose (Dextrose 50%-Water Syringe) 12.5 gm PRN Q15MIN PRN IV SEE COMMENTS; Start 04/21/21 at 15:00 Acetaminophen (Tylenol) 650 mg PRN Q6HRS PRN PO Headaches, Temp > 101.5'; Start 04/21/21 at 15:00; Status UNV Lorazepam (Ativan Inj) 0.5 mg PRN Q6HRS PRN IVP ANXIETY / AGITATION; Start 04/21/21 at 15:00 Lorazepam (Ativan) 1 mg PRN Q6HRS PRN PO ANXIETY / AGITATION; Start 04/21/21 at 15:00 Ondansetron HCl (Zofran) 4 mg PRN Q6HRS PRN IVP NAUSEA/VOMITING; Start 04/21/21 at 15:00; Status UNV Prochlorperazine Edisylate (Compazine) 5 mg PRN Q6HRS PRN IVP NAUSEA/VOMITING 2ND CHOICE; Start 04/21/21 at 15:00 Al Hydroxide/Mg Hydroxide (Mylanta Plus Xs) 30 ml PRN Q3HRS PRN PO HEARTBURN / GAS; Start 04/21/21 at 15:00 Calcium Carbonate/ Glycine (Tums) 500 mg PRN Q3HRS PRN PO HEARTBURN / GAS; Start 04/21/21 at 15:00 Zolpidem Tartrate (Ambien) 5 mg PRN QHS PRN PO INSOMNIA, MAY REPEAT IN 1HR; Start 04/21/21 at 15:00 Sodium Chloride (Normal Saline Flush) 3 ml QSHIFT PRN IV AFTER MEDS AND BLOOD DRAWS; Start 04/21/21 at 15:00 Morphine Sulfate (Morphine Sulfate) 2 mg PRN Q1HR PRN IV PAIN Last administered on 04/23/21at 20:56; Start 04/21/21 at 15:00 Magnesium Hydroxide (Milk Of Magnesia) 2,400 mg PRN Q12HR PRN PO CONSTIPATION; Start 04/21/21 at 15:00 Aspirin (Denis Aspirin) 325 mg DAILYWBKFT PO Last administered on 04/24/21at 08:18; Start 04/22/21 at 15:00 Carvedilol (Coreg) 25 mg BIDWMEALS PO Last administered on 04/24/21at 08:19; Start 04/22/21 at 18:15 Clopidogrel Bisulfate (Plavix) 75 mg DAILY PO Last administered on 04/24/21at 08:18; Start 04/23/21 at 09:00 Levothyroxine Sodium (Synthroid) 75 mcg DAILY06 PO Last administered on 04/24/21at 06:11; Start 04/23/21 at 10:15 Acetaminophen/ Aspirin/Caffeine (Excedrin Migraine) 1 tab PRN Q6HRS PRN PO MIGRAINE HEADACHE Last administered on 04/24/21at 11:27; Start 04/23/21 at 12:45 Dextrose/Sodium Chloride 500 ml @ 1,000 mls/hr Q30M IV ; Start 04/23/21 at 13:00; Stop 04/23/21 at 16:27; Status DC Acetaminophen/ Butalbital/ Caffeine (Fioricet) 1 tab PRN Q6HRS PRN PO MIGRAINE HEADACHE Last administered on 04/24/21at 13:56; Start 04/23/21 at 16:00 Active Scripts Active Reported Levothyroxine Sodium 75 Mcg Tablet 1 Tab PO DAILY Crestor (Rosuvastatin Calcium) 5 Mg Tablet 10 Mg PO HS Furosemide 20 Mg Tablet 1 Tab PO DAILY Clopidogrel (Clopidogrel Bisulfate) 75 Mg Tablet 1 Tab PO DAILY Carvedilol 25 Mg Tablet 25 Mg PO BIDWMEALS Aspirin 81 Mg Tab.chew 1 Tab PO DAILY Isosorbide Mononitrate Er (Isosorbide Mononitrate) 30 Mg Tab.er.24h 1 Tab PO DAILY Aspirin 81 Mg Tab.chew 1 Tab PO DAILY Lisinopril 5 Mg Tablet 1 Tab PO DAILY Vitals/I & O Vital Sign - Last 24 Hours 04/23/21 04/23/21 04/23/21 04/23/21 14:42 14:50 14:51 14:53 Pulse 60 60 60 B/P (MAP) 154/71 (98) 191/79 (116) 151/70 (97) O2 Delivery Room Air 04/23/21 04/23/21 04/23/21 04/23/21 15:00 15:21 15:58 18:00 Temp 98.5 98.5 Pulse 59 60 59 Resp 16 B/P (MAP) 154/81 (105) 113/59 (77) 145/77 Pulse Ox 95 O2 Delivery Room Air Room Air 04/23/21 04/23/21 04/23/21 04/23/21 19:00 19:35 20:56 21:26 Temp 98.3 98.3 Pulse 62 Resp 18 20 20 B/P (MAP) 160/68 (98) Pulse Ox 98 O2 Delivery Room Air Room Air Room Air Room Air 04/23/21 04/24/21 04/24/21 04/24/21 22:41 02:33 07:00 08:00 Temp 98.0 98.1 98.1 98.0 98.1 98.1 Pulse 65 60 60 Resp 16 16 16 B/P (MAP) 138/63 (88) 92/51 (65) 125/62 (83) Pulse Ox 97 99 98 O2 Delivery Room Air Room Air Room Air Room Air 04/24/21 04/24/21 04/24/21 08:18 08:19 10:10 Temp 98.2 98.2 Pulse 60 60 58 Resp 16 B/P (MAP) 125/62 125/62 96/54 (68) Pulse Ox 97 O2 Delivery Room Air Intake and Output 04/23/21 04/23/21 04/24/21 15:00 23:00 07:00 Intake Total 540 ml 180 ml 360 ml Output Total 400 ml Balance 540 ml 180 ml -40 ml Justicifation of Admission Dx: Justifications for Admission: Justification of Admission Dx: Yes Stroke - Ischemic: Stroke-Ischemic BO MARROQUIN MD Apr 24, 2021 14:31
[2021-04-24 14:46] VITALS: BP 153/69
[2021-04-24 19:41] VITALS: BP 123/66
[2021-04-24] MEDS: ATORVASTATIN CALCIUM 10 MG TABLET. PO SCH (21:18)
[2021-04-24] MEDS: INSULIN GLARGINE SYRINGE. SQ SCH (21:26)
[2021-04-24 22:36] VITALS: BP 124/58
[2021-04-25 02:58] VITALS: BP 128/64
[2021-04-25 04:07] LABS: BASO % 1 % (0-3); EOS # 0.2 x10^3/uL (0.0-0.7); EOS % 4 % (0-3); HEMATOCRIT 32.2 % (36.0-47.0); HEMOGLOBIN 11.1 g/dL (12.0-15.5); LYMPH % 62 % (24-48); MEAN CORPUSCULAR HEMOGLOBIN 32 pg (25-35); MEAN CORPUSCULAR HGB CONC 35 g/dL (31-37); MEAN CORPUSCULAR VOLUME 92 fL (79-100); MONO # 0.4 x10^3/uL (0.0-1.1); MONO % 7 % (0-9); NEUT # 1.2 x10^3/uL (1.8-7.7); NEUT % 26 % (31-73); PLATELET COUNT 197 x10^3/uL (140-400); RED BLOOD COUNT 3.52 x10^6/uL (3.50-5.40); RED CELL DISTRIBUTION WIDTH 16.1 % (11.5-14.5); WHITE BLOOD COUNT 4.8 x10^3/uL (4.0-11.0)
[2021-04-25 04:29] LABS: ALBUMIN 2.6 g/dL (3.4-5.0); ALBUMIN/GLOBULIN RATIO 0.7 (1.0-1.7); CALCIUM 8.2 mg/dL (8.5-10.1); CREATININE 1.5 mg/dL (0.6-1.0); GFR 39.9; POTASSIUM 3.7 mmol/L (3.5-5.1); TOTAL BILIRUBIN 0.2 mg/dL (0.2-1.0); TOTAL PROTEIN 6.5 g/dL (6.4-8.2)
[2021-04-25 04:46] LABS: % EOS 8 % (0-5); % LYMPHS 62 % (24-48); % MONOS 6 % (0-10); % SEGS 24 % (35-66); PLT ESTIMATE ADEQUATE (ADEQUATE)
[2021-04-25] MEDS: LEVOTHYROXINE 75 MCG TABLET PO SCH (06:38)
[2021-04-25 07:31] VITALS: BP 127/64
[2021-04-25] MEDS: INSULIN LISPRO 300 UNITS/3 ML VIAL. SQ SCH ×3 (08:00→17:00)
[2021-04-25] MEDS: ASA/APAP/CAFFEINE 250/250/65MG TABLET. PO PRN ×2 (08:19→17:20)
[2021-04-25] MEDS: ASPIRIN 325 MG TABLET PO SCH (08:19)
[2021-04-25] MEDS: CLOPIDOGREL BISULFATE 75 MG TABLET PO SCH (08:19)
[2021-04-25] MEDS: ISOSORBIDE MONONITRATE ER 30 MG TAB.ER.24H PO SCH (08:19)
[2021-04-25] MEDS: CARVEDILOL 12.5 MG TABLET. PO SCH ×2 (08:20→17:22)
--- NOTE | 2021-04-25 09:38 | PDOC ---
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 We will admit patient to ICU for monitoring over the next [address] head in the morning Lipid panel did not show significant abnormality Post tPA, goal blood pressure 180/105 mmHg (hydralazine, nicardipine infusion as needed to maintain goal blood pressure) Dual antiplatelet therapy for >24 hours Basal/prandial insulin Baseline kidney function from 01/03/2018 showed BUN 15, creatinine 0.19. Resume home medications FEN - Cardiac diet PPX - SCDs DNR Dispo - inpatient for above Patient names her daughter (Donya Banuelos) as surrogate decision-maker History of Present Illness History of Present Illness Patient is 85-year-old female with past medical history hemorrhagic CVA, DC, CAD, DM 2, HTN, HLD, presents to the ED after sudden onset altered mental status noted by her family this morning. Brought to the ED by daughter who stated that she was confused and unable to speak; reportedly trying to speak but was able to get words out. 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 Labs on admission showed hemoglobin 11.9, hematocrit 35.6, BUN 22, creatinine 1.4, CBG 231, troponin <0.017. CT head on admission showed no acute intracranial finding, bilateral cerebral white matter changes due to chronic small vessel disease, cerebral volume loss. NIH score 10. Patient's daughter notes anaphylactic allergy to contrast dye. 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 Neurology was consulted in the ED and recommended tPA. Will admit patient to ICU for further medical management. 04/22/2021: Patient seen while still in the ED. Clinically she is doing much better this morning, she is able to tell me her name and knows where she is. Discussed with RN, tPA had to be stopped after roughly 90% of infusion was complete due to complaints of headache and blood-tinged sputum. CT head was repeated last night due to concerns of headache post tPA; repeat CT showed no acute abnormality. Will repeat CT head again today, per Dr. Pedraza's recommendations. NPO until seen by ST today. Will order repeat CBC and BMP. PT/OT modalities. Critical care time 30 minutes spent reviewing charts, reviewing labs, reviewing imaging, discussion with RN. 04/23/2021: she is doing much better this morning, she is able to tell me her name and knows where she is. Discussed with RN, tPA had to be stopped after roughly 90% of infusion was complete due to complaints of headache and blood-tinged sputum. CT head was repeated 9-15 PM due to concerns of headache post tPA; repeat CT showed no acute abnormality. Will order repeat CBC and BMP. PT/OT modalities. 30 minutes spent reviewing charts, reviewing labs, reviewing imaging, discussion with RN. Early this morning had an episode of aphasia, repeat head CT negative 04/24/2021: she is doing much better this morning, she is able to tell me her name and knows where she is. Discussed with RN, tPA had to be stopped after roughly 90% of infusion was complete due to complaints of headache and blood-tinged sputum. CT head was repeated 9-15 PM due to concerns of headache post tPA; repeat CT showed no acute abnormality. repeat CBC and BMP. PT/OT modalities. 27 minutes spent reviewing charts, reviewing labs, reviewing imaging, discussion with RN. Early this morning had an episode of aphasia, repeat head CT negative 04/25/2021: claims 8/10 headache but appears to be in no distress she is doing much better this morning, she is able to tell me her name tPA had to be stopped after roughly 90% of infusion was complete due to complaints of headache and blood-tinged sputum. CT head was repeated 9-15 PM due to concerns of headache post tPA; repeat CT showed no acute abnormality. repeat CBC and BMP. PT/OT modalities. discussion with RN. needs snf bed Vitals Vitals Vital Signs Date Time Temp Pulse Resp B/P (MAP) Pulse Ox O2 Delivery O2 Flow Rate FiO2 04/25/21 08:20 60 127/64 04/25/21 07:31 98.4 18 97 Room Air 98.4 Physical Exam General: Alert, Cooperative, No acute distress Heart: Regular rate Lungs: Clear Abdomen: Soft, No tenderness Extremities: No clubbing Skin: No rashes, No breakdown Labs LABS Laboratory Tests Test 04/24/21 21:07 04/25/21 03:30 04/25/21 08:03 Glucose (Fingerstick) 161 mg/dL (70-99) 111 mg/dL (70-99) White Blood Count 4.8 x10^3/uL (4.0-11.0) Red Blood Count 3.52 x10^6/uL (3.50-5.40) Hemoglobin 11.1 g/dL (12.0-15.5) Hematocrit 32.2 % (36.0-47.0) Mean Corpuscular Volume 92 fL (79-100) Mean Corpuscular Hemoglobin 32 pg (25-35) Mean Corpuscular Hemoglobin Concent 35 g/dL (31-37) Red Cell Distribution Width 16.1 % (11.5-14.5) Platelet Count 197 x10^3/uL (140-400) Neutrophils (%) (Auto) 26 % (31-73) Lymphocytes (%) (Auto) 62 % (24-48) Monocytes (%) (Auto) 7 % (0-9) Eosinophils (%) (Auto) 4 % (0-3) Basophils (%) (Auto) 1 % (0-3) Neutrophils # (Auto) 1.2 x10^3/uL (1.8-7.7) Lymphocytes # (Auto) 3.0 x10^3/uL (1.0-4.8) Monocytes # (Auto) 0.4 x10^3/uL (0.0-1.1) Eosinophils # (Auto) 0.2 x10^3/uL (0.0-0.7) Basophils # (Auto) 0.0 x10^3/uL (0.0-0.2) Segmented Neutrophils % 24 % (35-66) Lymphocytes % 62 % (24-48) Monocytes % 6 % (0-10) Eosinophils % 8 % (0-5) Platelet Estimate Adequate (ADEQUATE) Sodium Level 142 mmol/L (136-145) Potassium Level 3.7 mmol/L (3.5-5.1) Chloride Level 108 mmol/L (98-107) Carbon Dioxide Level 27 mmol/L (21-32) Anion Gap 7 (6-14) Blood Urea Nitrogen 20 mg/dL (7-20) Creatinine 1.5 mg/dL (0.6-1.0) Estimated GFR (Cockcroft-Gault) 39.9 BUN/Creatinine Ratio 13 (6-20) Glucose Level 116 mg/dL (70-99) Calcium Level 8.2 mg/dL (8.5-10.1) Total Bilirubin 0.2 mg/dL (0.2-1.0) Aspartate Amino Transf (AST/SGOT) 21 U/L (15-37) Alanine Aminotransferase (ALT/SGPT) 17 U/L (14-59) Alkaline Phosphatase 65 U/L (46-116) Total Protein 6.5 g/dL (6.4-8.2) Albumin 2.6 g/dL (3.4-5.0) Albumin/Globulin Ratio 0.7 (1.0-1.7) Assessment and Plan Assessmemt and Plan Problems Medical Problems: (1) Acute CVA (cerebrovascular accident) Status: Acute Comment Review of Relevant I have reviewed the following items geoff (where applicable) has been applied. Labs Laboratory Tests Test 04/23/21 11:42 04/23/21 16:25 04/23/21 21:00 04/24/21 08:16 Glucose (Fingerstick) 158 mg/dL (70-99) 112 mg/dL (70-99) 181 mg/dL (70-99) 111 mg/dL (70-99) Test 04/24/21 21:07 04/25/21 03:30 04/25/21 08:03 Glucose (Fingerstick) 161 mg/dL (70-99) 111 mg/dL (70-99) White Blood Count 4.8 x10^3/uL (4.0-11.0) Red Blood Count 3.52 x10^6/uL (3.50-5.40) Hemoglobin 11.1 g/dL (12.0-15.5) Hematocrit 32.2 % (36.0-47.0) Mean Corpuscular Volume 92 fL (79-100) Mean Corpuscular Hemoglobin 32 pg (25-35) Mean Corpuscular Hemoglobin Concent 35 g/dL (31-37) Red Cell Distribution Width 16.1 % (11.5-14.5) Platelet Count 197 x10^3/uL (140-400) Neutrophils (%) (Auto) 26 % (31-73) Lymphocytes (%) (Auto) 62 % (24-48) Monocytes (%) (Auto) 7 % (0-9) Eosinophils (%) (Auto) 4 % (0-3) Basophils (%) (Auto) 1 % (0-3) Neutrophils # (Auto) 1.2 x10^3/uL (1.8-7.7) Lymphocytes # (Auto) 3.0 x10^3/uL (1.0-4.8) Monocytes # (Auto) 0.4 x10^3/uL (0.0-1.1) Eosinophils # (Auto) 0.2 x10^3/uL (0.0-0.7) Basophils # (Auto) 0.0 x10^3/uL (0.0-0.2) Segmented Neutrophils % 24 % (35-66) Lymphocytes % 62 % (24-48) Monocytes % 6 % (0-10) Eosinophils % 8 % (0-5) Platelet Estimate Adequate (ADEQUATE) Sodium Level 142 mmol/L (136-145) Potassium Level 3.7 mmol/L (3.5-5.1) Chloride Level 108 mmol/L (98-107) Carbon Dioxide Level 27 mmol/L (21-32) Anion Gap 7 (6-14) Blood Urea Nitrogen 20 mg/dL (7-20) Creatinine 1.5 mg/dL (0.6-1.0) Estimated GFR (Cockcroft-Gault) 39.9 BUN/Creatinine Ratio 13 (6-20) Glucose Level 116 mg/dL (70-99) Calcium Level 8.2 mg/dL (8.5-10.1) Total Bilirubin 0.2 mg/dL (0.2-1.0) Aspartate Amino Transf (AST/SGOT) 21 U/L (15-37) Alanine Aminotransferase (ALT/SGPT) 17 U/L (14-59) Alkaline Phosphatase 65 U/L (46-116) Total Protein 6.5 g/dL (6.4-8.2) Albumin 2.6 g/dL (3.4-5.0) Albumin/Globulin Ratio 0.7 (1.0-1.7) Laboratory Tests Test 04/24/21 21:07 04/25/21 03:30 04/25/21 08:03 Glucose (Fingerstick) 161 mg/dL (70-99) 111 mg/dL (70-99) White Blood Count 4.8 x10^3/uL (4.0-11.0) Red Blood Count 3.52 x10^6/uL (3.50-5.40) Hemoglobin 11.1 g/dL (12.0-15.5) Hematocrit 32.2 % (36.0-47.0) Mean Corpuscular Volume 92 fL (79-100) Mean Corpuscular Hemoglobin 32 pg (25-35) Mean Corpuscular Hemoglobin Concent 35 g/dL (31-37) Red Cell Distribution Width 16.1 % (11.5-14.5) Platelet Count 197 x10^3/uL (140-400) Neutrophils (%) (Auto) 26 % (31-73) Lymphocytes (%) (Auto) 62 % (24-48) Monocytes (%) (Auto) 7 % (0-9) Eosinophils (%) (Auto) 4 % (0-3) Basophils (%) (Auto) 1 % (0-3) Neutrophils # (Auto) 1.2 x10^3/uL (1.8-7.7) Lymphocytes # (Auto) 3.0 x10^3/uL (1.0-4.8) Monocytes # (Auto) 0.4 x10^3/uL (0.0-1.1) Eosinophils # (Auto) 0.2 x10^3/uL (0.0-0.7) Basophils # (Auto) 0.0 x10^3/uL (0.0-0.2) Segmented Neutrophils % 24 % (35-66) Lymphocytes % 62 % (24-48) Monocytes % 6 % (0-10) Eosinophils % 8 % (0-5) Platelet Estimate Adequate (ADEQUATE) Sodium Level 142 mmol/L (136-145) Potassium Level 3.7 mmol/L (3.5-5.1) Chloride Level 108 mmol/L (98-107) Carbon Dioxide Level 27 mmol/L (21-32) Anion Gap 7 (6-14) Blood Urea Nitrogen 20 mg/dL (7-20) Creatinine 1.5 mg/dL (0.6-1.0) Estimated GFR (Cockcroft-Gault) 39.9 BUN/Creatinine Ratio 13 (6-20) Glucose Level 116 mg/dL (70-99) Calcium Level 8.2 mg/dL (8.5-10.1) Total Bilirubin 0.2 mg/dL (0.2-1.0) Aspartate Amino Transf (AST/SGOT) 21 U/L (15-37) Alanine Aminotransferase (ALT/SGPT) 17 U/L (14-59) Alkaline Phosphatase 65 U/L (46-116) Total Protein 6.5 g/dL (6.4-8.2) Albumin 2.6 g/dL (3.4-5.0) Albumin/Globulin Ratio 0.7 (1.0-1.7) Medications Current Medications Alteplase, Recombinant 7.5 ml @ 450 mls/hr 1X ONCE IV Last administered on 04/21/21at 13:34; Start 04/21/21 at 13:30; Stop 04/21/21 at 13:31; Status DC Alteplase, Recombinant 68 ml @ 68 mls/hr Q1H IV Last administered on 04/21/21at 13:38; Start 04/21/21 at 13:30; Stop 04/21/21 at 14:29; Status DC Sodium Chloride 50 ml @ 200 mls/hr 1X ONCE IV ; Start 04/21/21 at 14:30; Stop 04/21/21 at 14:44; Status DC Labetalol HCl (Normodyne Iv Push) 10 mg PRN Q10MIN PRN IVP HYPERTENSION; Start 04/21/21 at 13:45 Nicardipine HCl 50 mg/Sodium Chloride 250 ml @ 25 mls/hr CONT PRN PRN IV HYPERTENSION; Start 04/21/21 at 13:45 Acetaminophen (Tylenol) 650 mg PRN Q6HRS PRN PO MILD PAIN / TEMP > 100.3'F Last administered on 04/24/21at 03:34; Start 04/21/21 at 13:45 Acetaminophen (Tylenol Supp) 650 mg PRN Q6HRS PRN NM MILD PAIN / TEMP > 100.3'F; Start 04/21/21 at 13:45 Ondansetron HCl (Zofran) 4 mg PRN Q6HRS PRN IVP NAUSEA/VOMITING Last administered on 04/21/21at 14:34; Start 04/21/21 at 13:45 Sodium Chloride 1,000 ml @ 1,000 mls/hr 1X ONCE IV Last administered on 04/21/21at 14:53; Start 04/21/21 at 14:45; Stop 04/21/21 at 15:44; Status DC Lorazepam (Ativan Inj) 1 mg 1X ONCE IVP Last administered on 04/21/21at 14:57; Start 04/21/21 at 14:45; Stop 04/21/21 at 14:46; Status DC Hydralazine HCl (Apresoline Inj) 10 mg PRN Q4HRS PRN IVP HYPERTENSION; Start 04/21/21 at 15:00 Carvedilol (Coreg) 12.5 mg BIDWMEALS PO ; Start 04/21/21 at 17:00; Stop 04/22/21 at 17:36; Status DC Ferrous Sulfate (Feosol) 325 mg DAILY PO ; Start 04/22/21 at 09:00; Stop 04/22/21 at 18:44; Status DC Isosorbide Mononitrate (Imdur) 30 mg DAILY PO Last administered on 04/25/21at 08:19; Start 04/22/21 at 09:00 Citalopram Hydrobromide (CeleXA) 20 mg DAILY PO ; Start 04/22/21 at 09:00; Stop 04/22/21 at 18:44; Status DC Atorvastatin Calcium (Lipitor) 10 mg QHS PO Last administered on 04/24/21at 21:18; Start 04/21/21 at 21:00 Mirtazapine (Remeron) 30 mg QHS PO ; Start 04/21/21 at 21:00; Stop 04/22/21 at 17:36; Status DC Pantoprazole Sodium (Protonix) 40 mg DAILYAC PO ; Start 04/22/21 at 07:30; Stop 04/22/21 at 18:44; Status DC Verapamil HCl (Calan Sr) 240 mg DAILY PO ; Start 04/22/21 at 09:00; Stop 04/22/21 at 17:36; Status DC Insulin Glargine (Lantus Syringe) 10 unit QHS SQ Last administered on 04/24/21at 21:26; Start 04/21/21 at 21:00 Insulin Human Lispro (HumaLOG) 0-7 UNITS TIDWMEALS SQ ; Start 04/21/21 at 17:00 Dextrose (Dextrose 50%-Water Syringe) 12.5 gm PRN Q15MIN PRN IV SEE COMMENTS; Start 04/21/21 at 15:00 Acetaminophen (Tylenol) 650 mg PRN Q6HRS PRN PO Headaches, Temp > 101.5'; Start 04/21/21 at 15:00; Status UNV Lorazepam (Ativan Inj) 0.5 mg PRN Q6HRS PRN IVP ANXIETY / AGITATION; Start 04/21/21 at 15:00 Lorazepam (Ativan) 1 mg PRN Q6HRS PRN PO ANXIETY / AGITATION Last administered on 04/24/21at 21:20; Start 04/21/21 at 15:00 Ondansetron HCl (Zofran) 4 mg PRN Q6HRS PRN IVP NAUSEA/VOMITING; Start 04/21/21 at 15:00; Status UNV Prochlorperazine Edisylate (Compazine) 5 mg PRN Q6HRS PRN IVP NAUSEA/VOMITING 2ND CHOICE; Start 04/21/21 at 15:00 Al Hydroxide/Mg Hydroxide (Mylanta Plus Xs) 30 ml PRN Q3HRS PRN PO HEARTBURN / GAS; Start 04/21/21 at 15:00 Calcium Carbonate/ Glycine (Tums) 500 mg PRN Q3HRS PRN PO HEARTBURN / GAS; Start 04/21/21 at 15:00 Zolpidem Tartrate (Ambien) 5 mg PRN QHS PRN PO INSOMNIA, MAY REPEAT IN 1HR; Start 04/21/21 at 15:00 Sodium Chloride (Normal Saline Flush) 3 ml QSHIFT PRN IV AFTER MEDS AND BLOOD DRAWS; Start 04/21/21 at 15:00 Morphine Sulfate (Morphine Sulfate) 2 mg PRN Q1HR PRN IV PAIN Last administered on 04/23/21at 20:56; Start 04/21/21 at 15:00 Magnesium Hydroxide (Milk Of Magnesia) 2,400 mg PRN Q12HR PRN PO CONSTIPATION; Start 04/21/21 at 15:00 Aspirin (Denis Aspirin) 325 mg DAILYWBKFT PO Last administered on 04/25/21at 08:19; Start 04/22/21 at 15:00 Carvedilol (Coreg) 25 mg BIDWMEALS PO Last administered on 04/25/21at 08:20; Start 04/22/21 at 18:15 Clopidogrel Bisulfate (Plavix) 75 mg DAILY PO Last administered on 04/25/21at 08:19; Start 04/23/21 at 09:00 Levothyroxine Sodium (Synthroid) 75 mcg DAILY06 PO Last administered on 04/25/21at 06:38; Start 04/23/21 at 10:15 Acetaminophen/ Aspirin/Caffeine (Excedrin Migraine) 1 tab PRN Q6HRS PRN PO MIGRAINE HEADACHE Last administered on 04/25/21at 08:19; Start 04/23/21 at 12:45 Dextrose/Sodium Chloride 500 ml @ 1,000 mls/hr Q30M IV ; Start 04/23/21 at 13:00; Stop 04/23/21 at 16:27; Status DC Acetaminophen/ Butalbital/ Caffeine (Fioricet) 1 tab PRN Q6HRS PRN PO MIGRAINE HEADACHE Last administered on 04/24/21at 21:19; Start 04/23/21 at 16:00 Active Scripts Active Reported Levothyroxine Sodium 75 Mcg Tablet 1 Tab PO DAILY Crestor (Rosuvastatin Calcium) 5 Mg Tablet 10 Mg PO HS Furosemide 20 Mg Tablet 1 Tab PO DAILY Clopidogrel (Clopidogrel Bisulfate) 75 Mg Tablet 1 Tab PO DAILY Carvedilol 25 Mg Tablet 25 Mg PO BIDWMEALS Aspirin 81 Mg Tab.chew 1 Tab PO DAILY Isosorbide Mononitrate Er (Isosorbide Mononitrate) 30 Mg Tab.er.24h 1 Tab PO DAILY Aspirin 81 Mg Tab.chew 1 Tab PO DAILY Lisinopril 5 Mg Tablet 1 Tab PO DAILY Vitals/I & O Vital Sign - Last 24 Hours 04/24/21 04/24/21 04/24/21 04/24/21 10:10 14:46 17:35 19:41 Temp 98.2 98.1 98.3 98.2 98.1 98.3 Pulse 58 60 60 59 Resp 16 16 16 B/P (MAP) 96/54 (68) 153/69 (97) 119/58 123/66 (85) Pulse Ox 97 98 97 O2 Delivery Room Air Room Air Room Air 04/24/21 04/24/21 04/25/21 04/25/21 20:20 22:36 02:58 07:31 Temp 98.5 98.6 98.4 98.5 98.6 98.4 Pulse 63 59 60 Resp 16 18 18 B/P (MAP) 124/58 (80) 128/64 (85) 127/64 (85) Pulse Ox 100 99 97 O2 Delivery Room Air Room Air Room Air Room Air 04/25/21 04/25/21 08:19 08:20 Pulse 60 60 B/P (MAP) 127/64 127/64 Intake and Output 04/24/21 04/24/21 04/25/21 15:00 23:00 07:00 Intake Total 570 ml 480 ml 0 ml Output Total 500 ml Balance 570 ml -20 ml 0 ml Justicifation of Admission Dx: Justifications for Admission: Justification of Admission Dx: Yes Stroke - Ischemic: Stroke-Ischemic RIRI BROWN MD Apr 25, 2021 09:38
[2021-04-25 11:04] VITALS: BP 91/59
[2021-04-25] MEDS: BUTALB/APAP/CAFEIN 50/325/40MG TABLET. PO PRN ×2 (12:21→21:29)
[2021-04-25 14:28] VITALS: BP 131/64
--- NOTE | 2021-04-25 14:33 | PDOC ---
PROGRESS NOTES Date of Service DATE: 04/25/21 TIME: 14:31 Assessment Problems Medical Problems: (1) Acute CVA (cerebrovascular accident) Status: Acute Episodes of aphasia, stuttering speech, admits that she is under stress. None since 04/23 On 04/21 had acute left hemispheric stroke with expressive aphasia and some mild hemiparesis. She received alteplase bolus and was getting the infusion when she had some blood-tinged sputum, the alteplase was stopped, patient rapidly regained her language. Patient started to stutter again daughter says, when she was discussing the status of her brother. She thinks he is . Family is telling her that he is fine. She gets upset about that. Continued headaches, I doubt that she has, for example, reversible cerebral vasoconstriction syndrome but will of course keep this in mind. She claims 8/10 headache but appears to be in no distress whatsoever. Daughter agrees with my assessment. 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 [id number] mg daily Continue statin, note favorable lipid profile PT advises SNU, okay to transfer to there on 03/26 I doubt that transfer to a tertiary center would be helpful. If she is having a stroke rather than conversion reaction, this would be branch vessel disease probably not amenable to any type of intervention. We have already given her alteplase. Subjective 8/10 headache Objective Vital Signs Date Time Temp Pulse Resp B/P (MAP) Pulse Ox O2 Delivery O2 Flow Rate FiO2 04/25/21 14:28 98.2 62 20 131/64 (86) 95 Room Air 98.2 Intake and Output 04/25/21 07:00 Intake Total 1050 ml Output Total 500 ml Balance 550 ml Intake Oral 1050 ml Output Urine Total 500 ml # Voids 4 # Bowel Movements 1 PHYSICAL EXAM Claims 8/10 headache, resting comfortably and appears to be in no acute distress Alert. Oriented to time, place and person. PERRL. EOMI. CN: no focal findings. Muscle tone: normal. Muscle strength: 4/5 DTR: 1+ Plantar reflex: flexor Gait: not examined in bed. Sensory exam: no abnormal findings. No cerebellar signs elicited. Review of Relevant I have reviewed the following items geoff (where applicable) has been applied. Labs Laboratory Tests Test 04/23/21 16:25 04/23/21 21:00 04/24/21 08:16 04/24/21 21:07 Glucose (Fingerstick) 112 mg/dL (70-99) 181 mg/dL (70-99) 111 mg/dL (70-99) 161 mg/dL (70-99) Test 04/25/21 03:30 04/25/21 08:03 04/25/21 11:56 White Blood Count 4.8 x10^3/uL (4.0-11.0) Red Blood Count 3.52 x10^6/uL (3.50-5.40) Hemoglobin 11.1 g/dL (12.0-15.5) Hematocrit 32.2 % (36.0-47.0) Mean Corpuscular Volume 92 fL (79-100) Mean Corpuscular Hemoglobin 32 pg (25-35) Mean Corpuscular Hemoglobin Concent 35 g/dL (31-37) Red Cell Distribution Width 16.1 % (11.5-14.5) Platelet Count 197 x10^3/uL (140-400) Neutrophils (%) (Auto) 26 % (31-73) Lymphocytes (%) (Auto) 62 % (24-48) Monocytes (%) (Auto) 7 % (0-9) Eosinophils (%) (Auto) 4 % (0-3) Basophils (%) (Auto) 1 % (0-3) Neutrophils # (Auto) 1.2 x10^3/uL (1.8-7.7) Lymphocytes # (Auto) 3.0 x10^3/uL (1.0-4.8) Monocytes # (Auto) 0.4 x10^3/uL (0.0-1.1) Eosinophils # (Auto) 0.2 x10^3/uL (0.0-0.7) Basophils # (Auto) 0.0 x10^3/uL (0.0-0.2) Segmented Neutrophils % 24 % (35-66) Lymphocytes % 62 % (24-48) Monocytes % 6 % (0-10) Eosinophils % 8 % (0-5) Platelet Estimate Adequate (ADEQUATE) Sodium Level 142 mmol/L (136-145) Potassium Level 3.7 mmol/L (3.5-5.1) Chloride Level 108 mmol/L (98-107) Carbon Dioxide Level 27 mmol/L (21-32) Anion Gap 7 (6-14) Blood Urea Nitrogen 20 mg/dL (7-20) Creatinine 1.5 mg/dL (0.6-1.0) Estimated GFR (Cockcroft-Gault) 39.9 BUN/Creatinine Ratio 13 (6-20) Glucose Level 116 mg/dL (70-99) Calcium Level 8.2 mg/dL (8.5-10.1) Total Bilirubin 0.2 mg/dL (0.2-1.0) Aspartate Amino Transf (AST/SGOT) 21 U/L (15-37) Alanine Aminotransferase (ALT/SGPT) 17 U/L (14-59) Alkaline Phosphatase 65 U/L (46-116) Total Protein 6.5 g/dL (6.4-8.2) Albumin 2.6 g/dL (3.4-5.0) Albumin/Globulin Ratio 0.7 (1.0-1.7) Glucose (Fingerstick) 111 mg/dL (70-99) 159 mg/dL (70-99) Laboratory Tests Test 04/24/21 21:07 04/25/21 03:30 04/25/21 08:03 04/25/21 11:56 Glucose (Fingerstick) 161 mg/dL (70-99) 111 mg/dL (70-99) 159 mg/dL (70-99) White Blood Count 4.8 x10^3/uL (4.0-11.0) Red Blood Count 3.52 x10^6/uL (3.50-5.40) Hemoglobin 11.1 g/dL (12.0-15.5) Hematocrit 32.2 % (36.0-47.0) Mean Corpuscular Volume 92 fL (79-100) Mean Corpuscular Hemoglobin 32 pg (25-35) Mean Corpuscular Hemoglobin Concent 35 g/dL (31-37) Red Cell Distribution Width 16.1 % (11.5-14.5) Platelet Count 197 x10^3/uL (140-400) Neutrophils (%) (Auto) 26 % (31-73) Lymphocytes (%) (Auto) 62 % (24-48) Monocytes (%) (Auto) 7 % (0-9) Eosinophils (%) (Auto) 4 % (0-3) Basophils (%) (Auto) 1 % (0-3) Neutrophils # (Auto) 1.2 x10^3/uL (1.8-7.7) Lymphocytes # (Auto) 3.0 x10^3/uL (1.0-4.8) Monocytes # (Auto) 0.4 x10^3/uL (0.0-1.1) Eosinophils # (Auto) 0.2 x10^3/uL (0.0-0.7) Basophils # (Auto) 0.0 x10^3/uL (0.0-0.2) Segmented Neutrophils % 24 % (35-66) Lymphocytes % 62 % (24-48) Monocytes % 6 % (0-10) Eosinophils % 8 % (0-5) Platelet Estimate Adequate (ADEQUATE) Sodium Level 142 mmol/L (136-145) Potassium Level 3.7 mmol/L (3.5-5.1) Chloride Level 108 mmol/L (98-107) Carbon Dioxide Level 27 mmol/L (21-32) Anion Gap 7 (6-14) Blood Urea Nitrogen 20 mg/dL (7-20) Creatinine 1.5 mg/dL (0.6-1.0) Estimated GFR (Cockcroft-Gault) 39.9 BUN/Creatinine Ratio 13 (6-20) Glucose Level 116 mg/dL (70-99) Calcium Level 8.2 mg/dL (8.5-10.1) Total Bilirubin 0.2 mg/dL (0.2-1.0) Aspartate Amino Transf (AST/SGOT) 21 U/L (15-37) Alanine Aminotransferase (ALT/SGPT) 17 U/L (14-59) Alkaline Phosphatase 65 U/L (46-116) Total Protein 6.5 g/dL (6.4-8.2) Albumin 2.6 g/dL (3.4-5.0) Albumin/Globulin Ratio 0.7 (1.0-1.7) Medications Current Medications Alteplase, Recombinant 7.5 ml @ 450 mls/hr 1X ONCE IV Last administered on 04/21/21at 13:34; Start 04/21/21 at 13:30; Stop 04/21/21 at 13:31; Status DC Alteplase, Recombinant 68 ml @ 68 mls/hr Q1H IV Last administered on 04/21/21at 13:38; Start 04/21/21 at 13:30; Stop 04/21/21 at 14:29; Status DC Sodium Chloride 50 ml @ 200 mls/hr 1X ONCE IV ; Start 04/21/21 at 14:30; Stop 04/21/21 at 14:44; Status DC Labetalol HCl (Normodyne Iv Push) 10 mg PRN Q10MIN PRN IVP HYPERTENSION; Start 04/21/21 at 13:45 Nicardipine HCl 50 mg/Sodium Chloride 250 ml @ 25 mls/hr CONT PRN PRN IV HYPERTENSION; Start 04/21/21 at 13:45 Acetaminophen (Tylenol) 650 mg PRN Q6HRS PRN PO MILD PAIN / TEMP > 100.3'F Last administered on 04/24/21at 03:34; Start 04/21/21 at 13:45 Acetaminophen (Tylenol Supp) 650 mg PRN Q6HRS PRN [place] MILD PAIN / TEMP > 100.3'F; Start 04/21/21 at 13:45 Ondansetron HCl (Zofran) 4 mg PRN Q6HRS PRN IVP NAUSEA/VOMITING Last administered on 04/21/21at 14:34; Start 04/21/21 at 13:45 Sodium Chloride 1,000 ml @ 1,000 mls/hr 1X ONCE IV Last administered on 04/21/21at 14:53; Start 04/21/21 at 14:45; Stop 04/21/21 at 15:44; Status DC Lorazepam (Ativan Inj) 1 mg 1X ONCE IVP Last administered on 04/21/21at 14:57; Start 04/21/21 at 14:45; Stop 04/21/21 at 14:46; Status DC Hydralazine HCl (Apresoline Inj) 10 mg PRN Q4HRS PRN IVP HYPERTENSION; Start 04/21/21 at 15:00 Carvedilol (Coreg) 12.5 mg BIDWMEALS PO ; Start 04/21/21 at 17:00; Stop 04/22/21 at 17:36; Status DC Ferrous Sulfate (Feosol) 325 mg DAILY PO ; Start 04/22/21 at 09:00; Stop 04/22/21 at 18:44; Status DC Isosorbide Mononitrate (Imdur) 30 mg DAILY PO Last administered on 04/25/21at 08:19; Start 04/22/21 at 09:00 Citalopram Hydrobromide (CeleXA) 20 mg DAILY PO ; Start 04/22/21 at 09:00; Stop 04/22/21 at 18:44; Status DC Atorvastatin Calcium (Lipitor) 10 mg QHS PO Last administered on 04/24/21at 21:18; Start 04/21/21 at 21:00 Mirtazapine (Remeron) 30 mg QHS PO ; Start 04/21/21 at 21:00; Stop 04/22/21 at 17:36; Status DC Pantoprazole Sodium (Protonix) 40 mg DAILYAC PO ; Start 04/22/21 at 07:30; Stop 04/22/21 at 18:44; Status DC Verapamil HCl (Calan Sr) 240 mg DAILY PO ; Start 04/22/21 at 09:00; Stop 04/22/21 at 17:36; Status DC Insulin Glargine (Lantus Syringe) 10 unit QHS SQ Last administered on 04/24/21at 21:26; Start 04/21/21 at 21:00 Insulin Human Lispro (HumaLOG) 0-7 UNITS TIDWMEALS SQ Last administered on 04/25/21at 12:25; Start 04/21/21 at 17:00 Dextrose (Dextrose 50%-Water Syringe) 12.5 gm PRN Q15MIN PRN IV SEE COMMENTS; Start 04/21/21 at 15:00 Acetaminophen (Tylenol) 650 mg PRN Q6HRS PRN PO Headaches, Temp > 101.5'; Start 04/21/21 at 15:00; Status UNV Lorazepam (Ativan Inj) 0.5 mg PRN Q6HRS PRN IVP ANXIETY / AGITATION; Start 04/21/21 at 15:00 Lorazepam (Ativan) 1 mg PRN Q6HRS PRN PO ANXIETY / AGITATION Last administered on 04/25/21at 10:15; Start 04/21/21 at 15:00 Ondansetron HCl (Zofran) 4 mg PRN Q6HRS PRN IVP NAUSEA/VOMITING; Start 04/21/21 at 15:00; Status UNV Prochlorperazine Edisylate (Compazine) 5 mg PRN Q6HRS PRN IVP NAUSEA/VOMITING 2ND CHOICE; Start 04/21/21 at 15:00 Al Hydroxide/Mg Hydroxide (Mylanta Plus Xs) 30 ml PRN Q3HRS PRN PO HEARTBURN / GAS; Start 04/21/21 at 15:00 Calcium Carbonate/ Glycine (Tums) 500 mg PRN Q3HRS PRN PO HEARTBURN / GAS; Start 04/21/21 at 15:00 Zolpidem Tartrate (Ambien) 5 mg PRN QHS PRN PO INSOMNIA, MAY REPEAT IN 1HR; Start 04/21/21 at 15:00 Sodium Chloride (Normal Saline Flush) 3 ml QSHIFT PRN IV AFTER MEDS AND BLOOD DRAWS; Start 04/21/21 at 15:00 Morphine Sulfate (Morphine Sulfate) 2 mg PRN Q1HR PRN IV PAIN Last administered on 04/23/21at 20:56; Start 04/21/21 at 15:00 Magnesium Hydroxide (Milk Of Magnesia) 2,400 mg PRN Q12HR PRN PO CONSTIPATION; Start 04/21/21 at 15:00 Aspirin (Denis Aspirin) 325 mg DAILYWBKFT PO Last administered on 04/25/21at 08:19; Start 04/22/21 at 15:00 Carvedilol (Coreg) 25 mg BIDWMEALS PO Last administered on 04/25/21at 08:20; Start 04/22/21 at 18:15 Clopidogrel Bisulfate (Plavix) 75 mg DAILY PO Last administered on 04/25/21at 08:19; Start 04/23/21 at 09:00 Levothyroxine Sodium (Synthroid) 75 mcg DAILY06 PO Last administered on 04/25/21at 06:38; Start 04/23/21 at 10:15 Acetaminophen/ Aspirin/Caffeine (Excedrin Migraine) 1 tab PRN Q6HRS PRN PO MIGRAINE HEADACHE Last administered on 04/25/21at 08:19; Start 04/23/21 at 12:45 Dextrose/Sodium Chloride 500 ml @ 1,000 mls/hr Q30M IV ; Start 04/23/21 at 13:00; Stop 04/23/21 at 16:27; Status DC Acetaminophen/ Butalbital/ Caffeine (Fioricet) 1 tab PRN Q6HRS PRN PO MIGRAINE HEADACHE Last administered on 04/25/21at 12:21; Start 04/23/21 at 16:00 Active Scripts Active Reported Levothyroxine Sodium 75 Mcg Tablet 1 Tab PO DAILY Crestor (Rosuvastatin Calcium) 5 Mg Tablet 10 Mg PO HS Furosemide 20 Mg Tablet 1 Tab PO DAILY Clopidogrel (Clopidogrel Bisulfate) 75 Mg Tablet 1 Tab PO DAILY Carvedilol 25 Mg Tablet 25 Mg PO BIDWMEALS Aspirin 81 Mg Tab.chew 1 Tab PO DAILY Isosorbide Mononitrate Er (Isosorbide Mononitrate) 30 Mg Tab.er.24h 1 Tab PO DAILY Aspirin 81 Mg Tab.chew 1 Tab PO DAILY Lisinopril 5 Mg Tablet 1 Tab PO DAILY Vitals/I & O Vital Sign - Last 24 Hours 04/24/21 04/24/21 04/24/21 04/24/21 14:46 17:35 19:41 20:20 Temp 98.1 98.3 98.1 98.3 Pulse 60 60 59 Resp 16 16 B/P (MAP) 153/69 (97) 119/58 123/66 (85) Pulse Ox 98 97 O2 Delivery Room Air Room Air Room Air 04/24/21 04/25/21 04/25/21 04/25/21 22:36 02:58 07:31 08:00 Temp 98.5 98.6 98.4 98.5 98.6 98.4 Pulse 63 59 60 Resp 16 18 18 B/P (MAP) 124/58 (80) 128/64 (85) 127/64 (85) Pulse Ox 100 99 97 O2 Delivery Room Air Room Air Room Air Room Air 04/25/21 04/25/21 04/25/21 04/25/21 08:19 08:20 11:04 14:28 Temp 98.1 98.2 98.1 98.2 Pulse 60 60 59 62 Resp 18 20 B/P (MAP) 127/64 127/64 91/59 (70) 131/64 (86) Pulse Ox 96 95 O2 Delivery Room Air Room Air Intake and Output 04/24/21 04/24/21 04/25/21 15:00 23:00 07:00 Intake Total 570 ml 480 ml 0 ml Output Total 500 ml Balance 570 ml -20 ml 0 ml Justicifation of Admission Dx: Justifications for Admission: Justification of Admission Dx: Yes Stroke - Ischemic: Stroke-Ischemic BO MARROQUIN MD Apr 25, 2021 14:33
[2021-04-25 19:45] VITALS: BP 135/63
[2021-04-25] MEDS: ATORVASTATIN CALCIUM 10 MG TABLET. PO SCH (21:29)
[2021-04-25] MEDS: INSULIN GLARGINE SYRINGE. SQ SCH (21:31)
[2021-04-25 22:45] VITALS: BP 114/59
[2021-04-25] MEDS: MORPHINE SULFATE 2 MG/ML INJ. IV PRN (22:57)
[2021-04-26 03:10] VITALS: BP 132/60
[2021-04-26] MEDS: LEVOTHYROXINE 75 MCG TABLET PO SCH (06:29)
[2021-04-26] MEDS: ASA/APAP/CAFFEINE 250/250/65MG TABLET. PO PRN ×3 (06:29→19:54)
[2021-04-26 07:00] VITALS: BP 143/73
[2021-04-26] MEDS: INSULIN LISPRO 300 UNITS/3 ML VIAL. SQ SCH ×3 (08:00→17:00)
[2021-04-26] MEDS: ISOSORBIDE MONONITRATE ER 30 MG TAB.ER.24H PO SCH (08:19)
[2021-04-26] MEDS: ASPIRIN 325 MG TABLET PO SCH (08:20)
[2021-04-26] MEDS: CLOPIDOGREL BISULFATE 75 MG TABLET PO SCH (08:20)
[2021-04-26] MEDS: CARVEDILOL 12.5 MG TABLET. PO SCH ×2 (08:20→17:00)
--- NOTE | 2021-04-26 10:40 | PDOC ---
PROGRESS NOTES Date of Service DATE: 04/26/21 TIME: 10:39 Assessment Problems Medical Problems: (1) Acute CVA (cerebrovascular accident) Status: Acute Episodes of aphasia, stuttering speech, admits that she is under stress. None since 04/23 On 04/21 had acute left hemispheric stroke with expressive aphasia and some mild hemiparesis. She received alteplase bolus and was getting the infusion when she had some blood-tinged sputum, the alteplase was stopped, patient rapidly regained her language. Patient started to stutter again daughter says, when she was discussing the status of her brother. She thinks he is . Family is telling her that he is fine. She gets upset about that. Continued headaches, I doubt that she has, for example, reversible cerebral vasoconstriction syndrome but will of course keep this in mind. She claims 8/10 headache but appears to be in no distress whatsoever. Daughter agrees with my assessment. 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 [id number] mg daily Continue statin, note favorable lipid profile PT advises SNU, okay to transfer to there today Subjective Headache is 8/10 Objective Vital Signs Date Time Temp Pulse Resp B/P (MAP) Pulse Ox O2 Delivery O2 Flow Rate FiO2 04/26/21 08:20 59 132/60 04/26/21 08:05 Room Air 04/26/21 07:00 98.5 16 95 98.5 Intake and Output 04/26/21 07:00 Intake Total 1060 ml Output Total 1000 ml Balance 60 ml Intake Oral 1060 ml Output Urine Total 1000 ml # Voids 6 PHYSICAL EXAM Still claims 8/10 headache, sitting up in bed eating breakfast and appears to be in no acute distress Alert. Oriented to time, place and person. PERRL. EOMI. CN: no focal findings. Muscle tone: normal. Muscle strength: 4/5 DTR: 1+ Plantar reflex: flexor Gait: not examined in bed. Sensory exam: no abnormal findings. No cerebellar signs elicited. Review of Relevant I have reviewed the following items geoff (where applicable) has been applied. Labs Laboratory Tests Test 04/24/21 21:07 9/19/21 03:30 04/25/21 08:03 04/25/21 11:56 Glucose (Fingerstick) 161 mg/dL (70-99) 111 mg/dL (70-99) 159 mg/dL (70-99) White Blood Count 4.8 x10^3/uL (4.0-11.0) Red Blood Count 3.52 x10^6/uL (3.50-5.40) Hemoglobin 11.1 g/dL (12.0-15.5) Hematocrit 32.2 % (36.0-47.0) Mean Corpuscular Volume 92 fL (79-100) Mean Corpuscular Hemoglobin 32 pg (25-35) Mean Corpuscular Hemoglobin Concent 35 g/dL (31-37) Red Cell Distribution Width 16.1 % (11.5-14.5) Platelet Count 197 x10^3/uL (140-400) Neutrophils (%) (Auto) 26 % (31-73) Lymphocytes (%) (Auto) 62 % (24-48) Monocytes (%) (Auto) 7 % (0-9) Eosinophils (%) (Auto) 4 % (0-3) Basophils (%) (Auto) 1 % (0-3) Neutrophils # (Auto) 1.2 x10^3/uL (1.8-7.7) Lymphocytes # (Auto) 3.0 x10^3/uL (1.0-4.8) Monocytes # (Auto) 0.4 x10^3/uL (0.0-1.1) Eosinophils # (Auto) 0.2 x10^3/uL (0.0-0.7) Basophils # (Auto) 0.0 x10^3/uL (0.0-0.2) Segmented Neutrophils % 24 % (35-66) Lymphocytes % 62 % (24-48) Monocytes % 6 % (0-10) Eosinophils % 8 % (0-5) Platelet Estimate Adequate (ADEQUATE) Sodium Level 142 mmol/L (136-145) Potassium Level 3.7 mmol/L (3.5-5.1) Chloride Level 108 mmol/L (98-107) Carbon Dioxide Level 27 mmol/L (21-32) Anion Gap 7 (6-14) Blood Urea Nitrogen 20 mg/dL (7-20) Creatinine 1.5 mg/dL (0.6-1.0) Estimated GFR (Cockcroft-Gault) 39.9 BUN/Creatinine Ratio 13 (6-20) Glucose Level 116 mg/dL (70-99) Calcium Level 8.2 mg/dL (8.5-10.1) Total Bilirubin 0.2 mg/dL (0.2-1.0) Aspartate Amino Transf (AST/SGOT) 21 U/L (15-37) Alanine Aminotransferase (ALT/SGPT) 17 U/L (14-59) Alkaline Phosphatase 65 U/L (46-116) Total Protein 6.5 g/dL (6.4-8.2) Albumin 2.6 g/dL (3.4-5.0) Albumin/Globulin Ratio 0.7 (1.0-1.7) Test 04/25/21 16:55 04/25/21 20:53 04/26/21 07:52 Glucose (Fingerstick) 69 mg/dL (70-99) 145 mg/dL (70-99) 82 mg/dL (70-99) Laboratory Tests Test 04/25/21 11:56 04/25/21 16:55 04/25/21 20:53 04/26/21 07:52 Glucose (Fingerstick) 159 mg/dL (70-99) 69 mg/dL (70-99) 145 mg/dL (70-99) 82 mg/dL (70-99) Medications Current Medications Alteplase, Recombinant 7.5 ml @ 450 mls/hr 1X ONCE IV Last administered on 04/21/21at 13:34; Start 04/21/21 at 13:30; Stop 04/21/21 at 13:31; Status DC Alteplase, Recombinant 68 ml @ 68 mls/hr Q1H IV Last administered on 04/21/21at 13:38; Start 04/21/21 at 13:30; Stop 04/21/21 at 14:29; Status DC Sodium Chloride 50 ml @ 200 mls/hr 1X ONCE IV ; Start 04/21/21 at 14:30; Stop 04/21/21 at 14:44; Status DC Labetalol HCl (Normodyne Iv Push) 10 mg PRN Q10MIN PRN IVP HYPERTENSION; Start 04/21/21 at 13:45 Nicardipine HCl 50 mg/Sodium Chloride 250 ml @ 25 mls/hr CONT PRN PRN IV HYPERTENSION; Start 04/21/21 at 13:45 Acetaminophen (Tylenol) 650 mg PRN Q6HRS PRN PO MILD PAIN / TEMP > 100.3'F Last administered on 04/24/21at 03:34; Start 04/21/21 at 13:45 Acetaminophen (Tylenol Supp) 650 mg PRN Q6HRS PRN [place] MILD PAIN / TEMP > 100.3'F; Start 04/21/21 at 13:45 Ondansetron HCl (Zofran) 4 mg PRN Q6HRS PRN IVP NAUSEA/VOMITING Last administered on 04/21/21at 14:34; Start 04/21/21 at 13:45 Sodium Chloride 1,000 ml @ 1,000 mls/hr 1X ONCE IV Last administered on 04/21/21at 14:53; Start 04/21/21 at 14:45; Stop 04/21/21 at 15:44; Status DC Lorazepam (Ativan Inj) 1 mg 1X ONCE IVP Last administered on 04/21/21at 14:57; Start 04/21/21 at 14:45; Stop 04/21/21 at 14:46; Status DC Hydralazine HCl (Apresoline Inj) 10 mg PRN Q4HRS PRN IVP HYPERTENSION; Start 04/21/21 at 15:00 Carvedilol (Coreg) 12.5 mg BIDWMEALS PO ; Start 04/21/21 at 17:00; Stop 04/22/21 at 17:36; Status DC Ferrous Sulfate (Feosol) 325 mg DAILY PO ; Start 04/22/21 at 09:00; Stop 04/22/21 at 18:44; Status DC Isosorbide Mononitrate (Imdur) 30 mg DAILY PO Last administered on 04/26/21at 08:19; Start 04/22/21 at 09:00 Citalopram Hydrobromide (CeleXA) 20 mg DAILY PO ; Start 04/22/21 at 09:00; Stop 04/22/21 at 18:44; Status DC Atorvastatin Calcium (Lipitor) 10 mg QHS PO Last administered on 04/25/21at 21:29; Start 04/21/21 at 21:00 Mirtazapine (Remeron) 30 mg QHS PO ; Start 04/21/21 at 21:00; Stop 04/22/21 at 17:36; Status DC Pantoprazole Sodium (Protonix) 40 mg DAILYAC PO ; Start 04/22/21 at 07:30; Stop 04/22/21 at 18:44; Status DC Verapamil HCl (Calan Sr) 240 mg DAILY PO ; Start 04/22/21 at 09:00; Stop 04/22/21 at 17:36; Status DC Insulin Glargine (Lantus Syringe) 10 unit QHS SQ Last administered on 04/25/21at 21:31; Start 04/21/21 at 21:00 Insulin Human Lispro (HumaLOG) 0-7 UNITS TIDWMEALS SQ Last administered on 04/25/21at 12:25; Start 04/21/21 at 17:00 Dextrose (Dextrose 50%-Water Syringe) 12.5 gm PRN Q15MIN PRN IV SEE COMMENTS; Start 04/21/21 at 15:00 Acetaminophen (Tylenol) 650 mg PRN Q6HRS PRN PO Headaches, Temp > 101.5'; Start 04/21/21 at 15:00; Status UNV Lorazepam (Ativan Inj) 0.5 mg PRN Q6HRS PRN IVP ANXIETY / AGITATION; Start 04/21/21 at 15:00 Lorazepam (Ativan) 1 mg PRN Q6HRS PRN PO ANXIETY / AGITATION Last administered on 04/25/21at 21:29; Start 04/21/21 at 15:00 Ondansetron HCl (Zofran) 4 mg PRN Q6HRS PRN IVP NAUSEA/VOMITING; Start 04/21/21 at 15:00; Status UNV Prochlorperazine Edisylate (Compazine) 5 mg PRN Q6HRS PRN IVP NAUSEA/VOMITING 2ND CHOICE; Start 04/21/21 at 15:00 Al Hydroxide/Mg Hydroxide (Mylanta Plus Xs) 30 ml PRN Q3HRS PRN PO HEARTBURN / GAS; Start 04/21/21 at 15:00 Calcium Carbonate/ Glycine (Tums) 500 mg PRN Q3HRS PRN PO HEARTBURN / GAS; Start 04/21/21 at 15:00 Zolpidem Tartrate (Ambien) 5 mg PRN QHS PRN PO INSOMNIA, MAY REPEAT IN 1HR; Start 04/21/21 at 15:00 Sodium Chloride (Normal Saline Flush) 3 ml QSHIFT PRN IV AFTER MEDS AND BLOOD DRAWS; Start 04/21/21 at 15:00 Morphine Sulfate (Morphine Sulfate) 2 mg PRN Q1HR PRN IV PAIN Last administered on 04/25/21at 22:57; Start 04/21/21 at 15:00 Magnesium Hydroxide (Milk Of Magnesia) 2,400 mg PRN Q12HR PRN PO CONSTIPATION; Start 04/21/21 at 15:00 Aspirin (Denis Aspirin) 325 mg DAILYWBKFT PO Last administered on 04/26/21at 08:20; Start 04/22/21 at 15:00 Carvedilol (Coreg) 25 mg BIDWMEALS PO Last administered on 04/26/21at 08:20; Start 04/22/21 at 18:15 Clopidogrel Bisulfate (Plavix) 75 mg DAILY PO Last administered on 04/26/21at 08:20; Start 04/23/21 at 09:00 Levothyroxine Sodium (Synthroid) 75 mcg DAILY06 PO Last administered on 04/26/21at 06:29; Start 04/23/21 at 10:15 Acetaminophen/ Aspirin/Caffeine (Excedrin Migraine) 1 tab PRN Q6HRS PRN PO MIGRAINE HEADACHE Last administered on 04/26/21at 06:29; Start 04/23/21 at 12:45 Dextrose/Sodium Chloride 500 ml @ 1,000 mls/hr Q30M IV ; Start 04/23/21 at 13:00; Stop 04/23/21 at 16:27; Status DC Acetaminophen/ Butalbital/ Caffeine (Fioricet) 1 tab PRN Q6HRS PRN PO MIGRAINE HEADACHE Last administered on 04/25/21at 21:29; Start 04/23/21 at 16:00 Active Scripts Active Reported Levothyroxine Sodium 75 Mcg Tablet 1 Tab PO DAILY Crestor (Rosuvastatin Calcium) 5 Mg Tablet 10 Mg PO HS Furosemide 20 Mg Tablet 1 Tab PO DAILY Clopidogrel (Clopidogrel Bisulfate) 75 Mg Tablet 1 Tab PO DAILY Carvedilol 25 Mg Tablet 25 Mg PO BIDWMEALS Aspirin 81 Mg Tab.chew 1 Tab PO DAILY Isosorbide Mononitrate Er (Isosorbide Mononitrate) 30 Mg Tab.er.24h 1 Tab PO DAILY Aspirin 81 Mg Tab.chew 1 Tab PO DAILY Lisinopril 5 Mg Tablet 1 Tab PO DAILY Vitals/I & O Vital Sign - Last 24 Hours 04/25/21 04/25/21 04/25/21 04/25/21 11:04 14:28 17:22 19:45 Temp 98.1 98.2 98.7 98.1 98.2 98.7 Pulse 59 62 60 60 Resp 18 20 18 B/P (MAP) 91/59 (70) 131/64 (86) 149/77 135/63 (87) Pulse Ox 96 95 99 O2 Delivery Room Air Room Air Room Air 04/25/21 04/25/21 04/25/21 04/25/21 20:30 22:45 22:57 23:27 Temp 98.6 98.6 Pulse 59 Resp 18 22 20 B/P (MAP) 114/59 (77) Pulse Ox 94 99 97 O2 Delivery Room Air Room Air Room Air Room Air 04/26/21 04/26/21 04/26/21 04/26/21 03:10 07:00 08:05 08:19 Temp 98.5 98.5 98.5 98.5 Pulse 59 59 59 Resp 18 16 B/P (MAP) 132/60 (84) 143/73 (96) 132/60 Pulse Ox 97 95 O2 Delivery Room Air Room Air Room Air 04/26/21 08:20 Pulse 59 B/P (MAP) 132/60 Intake and Output 04/25/21 04/25/21 04/26/21 15:00 23:00 07:00 Intake Total 660 ml 300 ml 100 ml Output Total 1000 ml Balance 660 ml 300 ml -900 ml Justicifation of Admission Dx: Justifications for Admission: Justification of Admission Dx: Yes Stroke - Ischemic: Stroke-Ischemic BO MARROQUIN MD Apr 26, 2021 10:40
[2021-04-26 11:00] VITALS: BP 120/67
--- NOTE | 2021-04-26 11:37 | NUR ---
SS following up with discharge planning. SS reviewed pt chart and discussed with pt RN. Pt is currently on room air. COVID19 negative. PT/OT recommended assisted unit. Pt accepted at [facility], ; fax [phone], pending insurance approval. Clinical updates phoned and faxed to [facility]. SS will continue to follow for discharge planning. Addendum: 04/26/21 at 1323 by LUIS BURT SS Discharge orders received and phoned and faxed to [facility]. Insurance authorization still pending at this time. Case management contacting insurance to follow up on status of insurance determination.
--- NOTE | 2021-04-26 12:12 | PDOC ---
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 We will admit patient to ICU for monitoring over the next [address] head in the morning Lipid panel did not show significant abnormality Post tPA, goal blood pressure 180/105 mmHg (hydralazine, nicardipine infusion as needed to maintain goal blood pressure) Dual antiplatelet therapy for >24 hours Basal/prandial insulin Baseline kidney function from 01/03/2018 showed BUN 15, creatinine 0.19. Resume home medications FEN - Cardiac diet PPX - SCDs DNR Dispo - inpatient for above Patient names her daughter (Donya Banuelos) as surrogate decision-maker History of Present Illness History of Present Illness 04/26/21: Pt was seen and examined. Chart reviewed. Pt is resting in NAD and awoke upon entering room. D 5% and NS 45% running. Pt updated on hospital course. Patient is 85-year-old female with past medical history hemorrhagic CVA, AL, CAD, DM 2, HTN, HLD, presents to the ED after sudden onset altered mental status noted by her family this morning. Brought to the ED by daughter who stated that she was confused and unable to speak; reportedly trying to speak but was able to get words out. 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 Labs on admission showed hemoglobin 11.9, hematocrit 35.6, BUN 22, creatinine 1.4, CBG 231, troponin <0.017. CT head on admission showed no acute intracranial finding, bilateral cerebral white matter changes due to chronic small vessel disease, cerebral volume loss. NIH score 10. Patient's daughter notes anaphylactic allergy to contrast dye. 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 Neurology was consulted in the ED and recommended tPA. Will admit patient to ICU for further medical management. 04/22/2021: Patient seen while still in the ED. Clinically she is doing much better this morning, she is able to tell me her name and knows where she is. Discussed with RN, tPA had to be stopped after roughly 90% of infusion was complete due to complaints of headache and blood-tinged sputum. CT head was repeated last night due to concerns of headache post tPA; repeat CT showed no acute abnormality. Will repeat CT head again today, per Dr. Pedraza's recommendations. NPO until seen by ST today. Will order repeat CBC and BMP. PT/OT modalities. Critical care time 30 minutes spent reviewing charts, reviewing labs, reviewing imaging, discussion with RN. 04/23/2021: she is doing much better this morning, she is able to tell me her name and knows where she is. Discussed with RN, tPA had to be stopped after roughly 90% of infusion was complete due to complaints of headache and blood-tinged sputum. CT head was repeated 9-15 PM due to concerns of headache post tPA; repeat CT showed no acute abnormality. Will order repeat CBC and BMP. PT/OT modalities. 30 minutes spent reviewing charts, reviewing labs, reviewing imaging, discussion with RN. Early this morning had an episode of aphasia, repeat head CT negative 04/24/2021: she is doing much better this morning, she is able to tell me her name and knows where she is. Discussed with RN, tPA had to be stopped after roughly 90% of infusion was complete due to complaints of headache and blood-tinged sputum. CT head was repeated 9-15 PM due to concerns of headache post tPA; repeat CT showed no acute abnormality. repeat CBC and BMP. PT/OT modalities. 27 minutes spent reviewing charts, reviewing labs, reviewing imaging, discussion with RN. Early this morning had an episode of aphasia, repeat head CT negative 04/25/2021: claims 8/10 headache but appears to be in no distress she is doing much better this morning, she is able to tell me her name tPA had to be stopped after roughly 90% of infusion was complete due to complaints of headache and blood-tinged sputum. CT head was repeated 9-15 PM due to concerns of headache post tPA; repeat CT showed no acute abnormality. repeat CBC and BMP. PT/OT modalities. discussion with RN. needs snf bed Vitals/I&O Vitals/I&O: Vital Signs Date Time Temp Pulse Resp B/P (MAP) Pulse Ox O2 Delivery O2 Flow Rate FiO2 04/26/21 11:00 98.6 60 16 120/67 (84) 94 Room Air 98.6 I & O 04/25/21 04/25/21 04/26/21 15:00 23:00 07:00 Intake Total 660 ml 300 ml 100 ml Output Total 1000 ml Balance 660 ml 300 ml -900 ml Physical Exam General: Alert, Cooperative, No acute distress Heart: Regular rate, Other (Distant S1/S2) Lungs: Clear Abdomen: Soft, No tenderness Extremities: No clubbing Skin: No rashes, No breakdown Labs Labs: Laboratory Tests Test 04/25/21 16:55 04/25/21 20:53 04/26/21 07:52 04/26/21 11:24 Glucose (Fingerstick) 69 mg/dL (70-99) 145 mg/dL (70-99) 82 mg/dL (70-99) 108 mg/dL (70-99) Assessment and Plan Assessmemt and Plan Plan: - [facility] - Provide home medications with guidance. - Pt informed of clinical management with no barriers to communication. - Appreciate further input from sub specialty. DNR Problems Medical Problems: (1) Acute CVA (cerebrovascular accident) Status: Acute Comment Review of Relevant I have reviewed the following items geoff (where applicable) has been applied. Justifications for Admission Other Justification IDANIA CANCHOLA III DO Apr 26, 2021 12:12
--- NOTE | 2021-04-26 12:36 | SNU/HH DC ---
DISCHARGE ORDERS DISCHARGE INFORMATION: FINAL DIAGNOSIS Problems Medical Problems: (1) Acute CVA (cerebrovascular accident) Status: Acute CONDITION ON DISCHARGE: Stable CODE STATUS: Code Status: Full FCI: SNF STAY <30 DAYS: Yes HOSPICE: HOSPICE: No HOSPICE EVAL & TREAT: No LTAC: ADMIT TO LTAC: No POST DISCHARGE ORDERS: ACTIVITY ORDERS: Activity as tolerated WEIGHT BEARING STATUS: As tolerated DIET AFTER DISCHARGE: Cardiac TREATMENT/EQUIPMENT ORDERS: Physical Therapy For: Evalulation/Treatment Occupational Therapy For: Evaluation/Treatment DISCHARGE MEDICATIONS: Home Meds Reported Medications Levothyroxine Sodium (LEVOTHYROXINE SODIUM) 75 Mcg Tablet, 1 TAB PO DAILY for , #30 TAB 5 Refills 04/22/21 Rosuvastatin Calcium (CRESTOR) 5 Mg Tablet, 10 MG PO HS for FOR CHOLESTEROL, #30 TAB 0 Refills 04/22/21 Furosemide (FUROSEMIDE) 20 Mg Tablet, 1 TAB PO DAILY for , #90 TAB 1 Refill 04/22/21 Clopidogrel Bisulfate (CLOPIDOGREL) 75 Mg Tablet, 1 TAB PO DAILY for , #90 TAB 1 Refill 04/22/21 Carvedilol (CARVEDILOL) 25 Mg Tablet, 25 MG PO BIDWMEALS for CARDIAC, TAB 04/22/21 Aspirin (ASPIRIN) 81 Mg Tab.chew, 1 TAB PO DAILY for , #30 TAB 3 Refills 04/22/21 Isosorbide Mononitrate (ISOSORBIDE MONONITRATE ER) 30 Mg Tab.er.24h, 1 TAB PO DAILY, #30 TAB 5 Refills 01/04/18 Aspirin (ASPIRIN) 81 Mg Tab.chew, 1 TAB PO DAILY, #30 TAB 3 Refills 01/04/18 Lisinopril (LISINOPRIL) 5 Mg Tablet, 1 TAB PO DAILY, #30 TAB 5 Refills 01/04/18 IDANIA CANCHOLA K III DO Apr 26, 2021 12:36
--- NOTE | 2021-04-26 14:03 | DS ---
DATE OF DISCHARGE: 04/26/2021 ADMITTING DIAGNOSIS: Stroke. DISCHARGE DIAGNOSES: Resolving stroke, history of gastroesophageal reflux disease, coronary artery disease, hypertension, hyperlipidemia, osteoarthritis, diabetes, anxiety. CONSULTS: Neurology. HOSPITAL COURSE: The patient is a pleasant elderly female who presented with stroke symptoms. She was admitted. We consulted Neurology. We did physical therapy, occupational therapy and speech therapy. Today, I saw and examined her. She is at her baseline, but quite debilitated. We plan to discharge to intermediate at the [facility]. DISPOSITION: snf. ACTIVITY: As tolerated. DIET: Low sodium. DISCHARGE MEDICATIONS: Please see the MRAD. Aspirin 81 a day, carvedilol 25 b.i.d., Plavix 75 a day, Lasix 20 a day, Imdur 30 a day, Synthroid 75 a day, lisinopril 5 a day and Crestor 10 a day. Total time [address]: Batsheva TID: [id number]
[2021-04-26 15:00] VITALS: BP 114/64
--- NOTE | 2021-04-26 17:41 | NUR ---
NURSING PT DECLINED DOSE OF COREG, SHE STILL THINKS SHE MIGHT LEAVE, ET PREFERS TO TAKE IT LATER.
[2021-04-26 19:30] VITALS: BP 143/71
[2021-04-26] MEDS: ATORVASTATIN CALCIUM 10 MG TABLET. PO SCH (20:38)
[2021-04-26] MEDS: INSULIN GLARGINE SYRINGE. SQ SCH (21:00)
[2021-04-26 22:50] VITALS: BP 157/75
[2021-04-27] MEDS: ZOLPIDEM 5 MG TABLET. PO PRN ×2 (00:19→22:52)
[2021-04-27 02:50] VITALS: BP 140/74
[2021-04-27] MEDS: LEVOTHYROXINE 75 MCG TABLET PO SCH (05:50)
[2021-04-27] MEDS: ASA/APAP/CAFFEINE 250/250/65MG TABLET. PO PRN ×3 (05:50→18:19)
[2021-04-27 07:00] VITALS: BP 143/70
[2021-04-27] MEDS: INSULIN LISPRO 300 UNITS/3 ML VIAL. SQ SCH ×3 (08:00→16:42)
[2021-04-27] MEDS: BUTALB/APAP/CAFEIN 50/325/40MG TABLET. PO PRN ×2 (08:49→14:46)
[2021-04-27] MEDS: ISOSORBIDE MONONITRATE ER 30 MG TAB.ER.24H PO SCH (08:50)
[2021-04-27] MEDS: CARVEDILOL 12.5 MG TABLET. PO SCH ×2 (08:50→16:51)
[2021-04-27] MEDS: ASPIRIN 325 MG TABLET PO SCH (08:50)
[2021-04-27] MEDS: CLOPIDOGREL BISULFATE 75 MG TABLET PO SCH (08:51)
[2021-04-27 10:12] VITALS: BP 107/53
--- NOTE | 2021-04-27 12:27 | PDOC ---
PROGRESS NOTES Date of Service DATE: 04/27/21 TIME: 12:26 Assessment Problems Medical Problems: (1) Acute CVA (cerebrovascular accident) Status: Acute Episodes of aphasia, stuttering speech, admits that she is under stress. None since 04/23 On 04/21 had acute left hemispheric stroke with expressive aphasia and some mild hemiparesis. She received alteplase bolus and was getting the infusion when she had some blood-tinged sputum, the alteplase was stopped, patient rapidly regained her language. Patient started to stutter again daughter says, when she was discussing the status of her brother. She thinks he is . Family is telling her that he is fine. She gets upset about that. Continued headaches, I doubt that she has, for example, reversible cerebral vasoconstriction syndrome but will of course keep this in mind. She claims 8/10 headache but appears to be in no distress whatsoever. Daughter agrees with my assessment. 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 Aspirin 325 mg daily Continue statin, note favorable lipid profile PT advises SNU, okay to transfer to there today. Awaiting insurance authorization Subjective 8/10 headache Objective Vital Signs Date Time Temp Pulse Resp B/P (MAP) Pulse Ox O2 Delivery O2 Flow Rate FiO2 04/27/21 10:12 98.8 59 16 107/53 (71) 94 Room Air 98.8 Intake and Output 04/27/21 07:00 Intake Total 1020 ml Output Total 600 ml Balance 420 ml Intake Oral 1020 ml Output Urine Total 600 ml # Voids 2 PHYSICAL EXAM Still claims 8/10 headache, yet again is sitting up in bed eating full breakfast and appears to be in no acute distress Alert. Oriented to time, place and person. PERRL. EOMI. CN: no focal findings. Muscle tone: normal. Muscle strength: 4/5 DTR: 1+ Plantar reflex: flexor Gait: not examined in bed. Sensory exam: no abnormal findings. No cerebellar signs elicited. Review of Relevant I have reviewed the following items geoff (where applicable) has been applied. Labs Laboratory Tests Test 04/25/21 16:55 04/25/21 20:53 04/26/21 07:52 04/26/21 11:24 Glucose (Fingerstick) 69 mg/dL (70-99) 145 mg/dL (70-99) 82 mg/dL (70-99) 108 mg/dL (70-99) Test 04/26/21 20:45 04/27/21 07:14 04/27/21 11:08 Glucose (Fingerstick) 199 mg/dL (70-99) 85 mg/dL (70-99) 117 mg/dL (70-99) Laboratory Tests Test 04/26/21 20:45 04/27/21 07:14 04/27/21 11:08 Glucose (Fingerstick) 199 mg/dL (70-99) 85 mg/dL (70-99) 117 mg/dL (70-99) Medications Current Medications Alteplase, Recombinant 7.5 ml @ 450 mls/hr 1X ONCE IV Last administered on 04/21/21at 13:34; Start 04/21/21 at 13:30; Stop 04/21/21 at 13:31; Status DC Alteplase, Recombinant 68 ml @ 68 mls/hr Q1H IV Last administered on 04/21/21at 13:38; Start 04/21/21 at 13:30; Stop 04/21/21 at 14:29; Status DC Sodium Chloride 50 ml @ 200 mls/hr 1X ONCE IV ; Start 04/21/21 at 14:30; Stop 04/21/21 at 14:44; Status DC Labetalol HCl (Normodyne Iv Push) 10 mg PRN Q10MIN PRN IVP HYPERTENSION, 2ND CHOICE; Start 04/21/21 at 13:45 Nicardipine HCl 50 mg/Sodium Chloride 250 ml @ 25 mls/hr CONT PRN PRN IV HYPERTENSION; Start 04/21/21 at 13:45 Acetaminophen (Tylenol) 650 mg PRN Q6HRS PRN PO MILD PAIN / TEMP > 100.3'F Last administered on 04/24/21at 03:34; Start 04/21/21 at 13:45 Acetaminophen (Tylenol Supp) 650 mg PRN Q6HRS PRN MT MILD PAIN / TEMP > 100.3'F; Start 04/21/21 at 13:45 Ondansetron HCl (Zofran) 4 mg PRN Q6HRS PRN IVP NAUSEA/VOMITING Last admin istered on 04/21/21at 14:34; Start 04/21/21 at 13:45 Sodium Chloride 1,000 ml @ 1,000 mls/hr 1X ONCE IV Last administered on at 14:53; Start 04/21/21 at 14:45; Stop 04/21/21 at 15:44; Status DC Lorazepam (Ativan Inj) 1 mg 1X ONCE IVP Last administered on 04/21/21at 14:57; Start 04/21/21 at 14:45; Stop 04/21/21 at 14:46; Status DC Hydralazine HCl (Apresoline Inj) 10 mg PRN Q4HRS PRN IVP HYPERTENSION, 1ST CHOICE; Start 04/21/21 at 15:00 Carvedilol (Coreg) 12.5 mg BIDWMEALS PO ; Start 04/21/21 at 17:00; Stop 04/22/21 at 17:36; Status DC Ferrous Sulfate (Feosol) 325 mg DAILY PO ; Start 04/22/21 at 09:00; Stop 04/22/21 at 18:44; Status DC Isosorbide Mononitrate (Imdur) 30 mg DAILY PO Last administered on 04/27/21at 08:50; Start 04/22/21 at 09:00 Citalopram Hydrobromide (CeleXA) 20 mg DAILY PO ; Start 04/22/21 at 09:00; Stop 04/22/21 at 18:44; Status DC Atorvastatin Calcium (Lipitor) 10 mg QHS PO Last administered on 04/26/21at 20:38; Start 04/21/21 at 21:00 Mirtazapine (Remeron) 30 mg QHS PO ; Start 04/21/21 at 21:00; Stop 04/22/21 at 17:36; Status DC Pantoprazole Sodium (Protonix) 40 mg DAILYAC PO ; Start 04/22/21 at 07:30; Stop 04/22/21 at 18:44; Status DC Verapamil HCl (Calan Sr) 240 mg DAILY PO ; Start 04/22/21 at 09:00; Stop 04/22/21 at 17:36; Status DC Insulin Glargine (Lantus Syringe) 10 unit QHS SQ Last administered on 04/26/21at 21:00; Start 04/21/21 at 21:00 Insulin Human Lispro (HumaLOG) 0-7 UNITS TIDWMEALS SQ Last administered on 04/25/21at 12:25; Start 04/21/21 at 17:00 Dextrose (Dextrose 50%-Water Syringe) 12.5 gm PRN Q15MIN PRN IV SEE COMMENTS; Start 04/21/21 at 15:00 Acetaminophen (Tylenol) 650 mg PRN Q6HRS PRN PO Headaches, Temp > 101.5'; Start 04/21/21 at 15:00; Status UNV Lorazepam (Ativan Inj) 0.5 mg PRN Q6HRS PRN IVP ANXIETY / AGITATION; Start 04/21/21 at 15:00 Lorazepam (Ativan) 1 mg PRN Q6HRS PRN PO ANXIETY / AGITATION Last administered on 04/25/21at 21:29; Start 04/21/21 at 15:00 Ondansetron HCl (Zofran) 4 mg PRN Q6HRS PRN IVP NAUSEA/VOMITING; Start 04/21/21 at 15:00; Status UNV Prochlorperazine Edisylate (Compazine) 5 mg PRN Q6HRS PRN IVP NAUSEA/VOMITING 2ND CHOICE; Start 04/21/21 at 15:00 Al Hydroxide/Mg Hydroxide (Mylanta Plus Xs) 30 ml PRN Q3HRS PRN PO HEARTBURN / GAS; Start 04/21/21 at 15:00 Calcium Carbonate/ Glycine (Tums) 500 mg PRN Q3HRS PRN PO HEARTBURN / GAS; Start 04/21/21 at 15:00 Zolpidem Tartrate (Ambien) 5 mg PRN QHS PRN PO INSOMNIA, MAY REPEAT IN 1HR Last administered on 04/27/21at 00:19; Start 04/21/21 at 15:00 Sodium Chloride (Normal Saline Flush) 3 ml QSHIFT PRN IV AFTER MEDS AND BLOOD DRAWS; Start 04/21/21 at 15:00 Morphine Sulfate (Morphine Sulfate) 2 mg PRN Q1HR PRN IV PAIN Last administered on 04/25/21at 22:57; Start 04/21/21 at 15:00 Magnesium Hydroxide (Milk Of Magnesia) 2,400 mg PRN Q12HR PRN PO CONSTIPATION; Start 04/21/21 at 15:00 Aspirin (Denis Aspirin) 325 mg DAILYWBKFT PO Last administered on 04/27/21at 08:50; Start 04/22/21 at 15:00 Carvedilol (Coreg) 25 mg BIDWMEALS PO Last administered on 04/27/21at 08:50; Start 04/22/21 at 18:15 Clopidogrel Bisulfate (Plavix) 75 mg DAILY PO Last administered on 04/27/21at 08:51; Start 04/23/21 at 09:00 Levothyroxine Sodium (Synthroid) 75 mcg DAILY06 PO Last administered on 04/27/21at 05:50; Start 04/23/21 at 10:15 Acetaminophen/ Aspirin/Caffeine (Excedrin Migraine) 1 tab PRN Q6HRS PRN PO MIGRAINE HEADACHE, 1ST CHOICE Last administered on 04/27/21at 11:50; Start 04/23/21 at 12:45 Dextrose/Sodium Chloride 500 ml @ 1,000 mls/hr Q30M IV ; Start 04/23/21 at 13:00; Stop 04/23/21 at 16:27; Status DC Acetaminophen/ Butalbital/ Caffeine (Fioricet) 1 tab PRN Q6HRS PRN PO MIGRAINE HEADACHE, 2ND CHOICE Last administered on 04/27/21at 08:49; Start 04/23/21 at 16:00 Active Scripts Active Reported Levothyroxine Sodium 75 Mcg Tablet 1 Tab PO DAILY Crestor (Rosuvastatin Calcium) 5 Mg Tablet 10 Mg PO HS Furosemide 20 Mg Tablet 1 Tab PO DAILY Clopidogrel (Clopidogrel Bisulfate) 75 Mg Tablet 1 Tab PO DAILY Carvedilol 25 Mg Tablet 25 Mg PO BIDWMEALS Aspirin 81 Mg Tab.chew 1 Tab PO DAILY Isosorbide Mononitrate Er (Isosorbide Mononitrate) 30 Mg Tab.er.24h 1 Tab PO DAILY Aspirin 81 Mg Tab.chew 1 Tab PO DAILY Lisinopril 5 Mg Tablet 1 Tab PO DAILY Vitals/I & O Vital Sign - Last 24 Hours 04/26/21 04/26/21 04/26/21 04/26/21 15:00 17:00 19:30 20:00 Temp 98.7 98.4 98.7 98.4 Pulse 60 60 59 Resp 16 20 B/P (MAP) 114/64 (81) 114/64 143/71 (95) Pulse Ox 93 96 O2 Delivery Room Air Room Air Room Air 04/26/21 04/27/21 04/27/21 04/27/21 22:50 02:50 07:00 08:00 Temp 99.0 98.5 98.0 99.0 98.5 98.0 Pulse 61 60 63 Resp 20 18 16 B/P (MAP) 157/75 (102) 140/74 (96) 143/70 (94) Pulse Ox 96 94 98 O2 Delivery Room Air Room Air Room Air Room Air 04/27/21 04/27/21 04/27/21 08:50 08:50 10:12 Temp 98.8 98.8 Pulse 63 63 59 Resp 16 B/P (MAP) 143/70 143/70 107/53 (71) Pulse Ox 94 O2 Delivery Room Air Intake and Output 04/26/21 04/26/21 04/27/21 15:00 23:00 07:00 Intake Total 840 ml 180 ml Output Total 600 ml Balance 840 ml 180 ml -600 ml Justicifation of Admission Dx: Justifications for Admission: Justification of Admission Dx: Yes Stroke - Ischemic: Stroke-Ischemic BO MARROQUIN MD Apr 27, 2021 12:27
--- NOTE | 2021-04-27 12:58 | PDOC ---
[employer] PROGRESS NOTE Date of Service DOS: DATE: 04/27/21 TIME: 12:54 Chief Complaint Chief Complaint 04/27/21: Pt was seen and examined. Chart reviewed. Pt is resting in no acute distress. Pt and family updated on hospital course. Vitals/I&O Vitals/I&O: Vital Signs Date Time Temp Pulse Resp B/P (MAP) Pulse Ox O2 Delivery O2 Flow Rate FiO2 04/27/21 10:12 98.8 59 16 107/53 (71) 94 Room Air 98.8 I & O 04/26/21 04/26/21 04/27/21 15:00 23:00 07:00 Intake Total 840 ml 180 ml Output Total 600 ml Balance 840 ml 180 ml -600 ml Physical Exam General: Alert (Expressive Aphasia noted), Cooperative, No acute distress Heart: Regular rate, Other Lungs: Clear Abdomen: Soft, No tenderness Extremities: No clubbing Skin: No rashes, No breakdown Labs Labs: Laboratory Tests Test 04/26/21 20:45 04/27/21 07:14 04/27/21 11:08 Glucose (Fingerstick) 199 mg/dL (70-99) 85 mg/dL (70-99) 117 mg/dL (70-99) Review of Systems Review of Systems: Speech difficulties Mental Status change Assessment and Plan Assessmemt and Plan Problems Medical Problems: (1) Acute CVA (cerebrovascular accident) Status: Acute Acute CVA 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 Justifications for Admission Other Justification IDANIA CANCHOLA III DO Apr 27, 2021 12:58
--- NOTE | 2021-04-27 13:43 | NUR ---
SS following up with discharge planning. SS reviewed pt chart and discussed with pt RN. Pt is currently on room air. COVID19 negative. PT/OT recommended residential unit. Pt accepted at [facility], ; fax [phone], pending insurance approval. Discharge orders received and phoned and faxed to [facility]. Insurance auth still pending at this time. SS will continue to follow for discharge planning.
[2021-04-27 15:00] VITALS: BP 116/60
[2021-04-27] MEDS: MORPHINE SULFATE 2 MG/ML INJ. IV PRN ×2 (16:51→21:29)
[2021-04-27 19:30] VITALS: BP 166/77
[2021-04-27] MEDS: ATORVASTATIN CALCIUM 10 MG TABLET. PO SCH (20:55)
[2021-04-27] MEDS: INSULIN GLARGINE SYRINGE. SQ SCH (21:00)
[2021-04-27 22:35] VITALS: BP 139/71
[2021-04-28 02:50] VITALS: BP 133/63
[2021-04-28] MEDS: ASA/APAP/CAFFEINE 250/250/65MG TABLET. PO PRN (04:13)
[2021-04-28] MEDS: LEVOTHYROXINE 75 MCG TABLET PO SCH (06:20)
[2021-04-28] MEDS: MORPHINE SULFATE 2 MG/ML INJ. IV PRN (06:21)
[2021-04-28 07:00] VITALS: BP 126/60
[2021-04-28] MEDS: INSULIN LISPRO 300 UNITS/3 ML VIAL. SQ SCH ×2 (07:37→11:44)
[2021-04-28] MEDS: ASPIRIN 325 MG TABLET PO SCH (07:59)
[2021-04-28] MEDS: CLOPIDOGREL BISULFATE 75 MG TABLET PO SCH (08:00)
[2021-04-28] MEDS: ISOSORBIDE MONONITRATE ER 30 MG TAB.ER.24H PO SCH (08:00)
[2021-04-28] MEDS: CARVEDILOL 12.5 MG TABLET. PO SCH (08:01)
--- NOTE | 2021-04-28 08:50 | PDOC ---
[employer] PROGRESS NOTE Date of Service DOS: DATE: 04/28/21 TIME: 08:49 Chief Complaint Chief Complaint Acute CVA Hemorrhagic CVA [place] CAD DM2 HTN HLD GERD Anxiety Osteoarthritis History of Present Illness History of Present Illness 04/28/2021: Pt seen and examined. Discussed with RN. Chart reviewed. 04/27/21: Pt was seen and examined. Chart reviewed. Pt is resting in no acute distress. Pt and family updated on hospital course. Vitals/I&O Vitals/I&O: Vital Signs Date Time Temp Pulse Resp B/P (MAP) Pulse Ox O2 Delivery O2 Flow Rate FiO2 04/28/21 08:01 59 133/63 04/28/21 07:00 98.5 16 100 Room Air 98.5 I & O 04/27/21 04/27/21 04/28/21 15:00 23:00 07:00 Intake Total 600 ml 600 ml 300 ml Output Total 100 ml 300 ml Balance 600 ml 500 ml 0 ml Physical Exam General: Alert (Expressive Aphasia noted), Cooperative, No acute distress Heart: Regular rate, Other Lungs: Clear Abdomen: Soft, No tenderness Extremities: No clubbing Skin: No rashes, No breakdown Labs Labs: Laboratory Tests Test 04/27/21 11:08 04/27/21 16:14 04/27/21 20:19 04/28/21 07:27 Glucose (Fingerstick) 117 mg/dL (70-99) 105 mg/dL (70-99) 160 mg/dL (70-99) 80 mg/dL (70-99) Assessment and Plan Assessmemt and Plan Problems Medical Problems: (1) Acute CVA (cerebrovascular accident) Status: Acute Acute CVA Hemorrhagic CVA [place] CAD DM2 HTN HLD GERD Anxiety Osteoarthritis Plan: Cardiac monitoring PT OT Speech Therapy DVT prophylaxis Home meds Trend labs DNR Discharge disposition pending Comment Review of Relevant I have reviewed the following items geoff (where applicable) has been applied. Justifications for Admission Other Justification IDANIA CANCHOLA III DO Apr 28, 2021 08:50
--- NOTE | 2021-04-28 09:05 | PDOC ---
PROGRESS NOTES Date of Service DATE: 04/28/21 TIME: 09:03 Assessment Problems Medical Problems: (1) Acute CVA (cerebrovascular accident) Status: Acute Episodes of aphasia, stuttering speech, admits that she is under stress. None since 04/23 On 04/21 had acute left hemispheric stroke with expressive aphasia and some mild hemiparesis. She received alteplase bolus and was getting the infusion when she had some blood-tinged sputum, the alteplase was stopped, patient rapidly regained her language. Patient started to stutter again daughter says, when she was discussing the status of her brother. She thinks he is . Family is telling her that he is fine. She gets upset about that. Continued headaches, I doubt that she has, for example, reversible cerebral vasoconstriction syndrome but will of course keep this in mind. She claims 8/10 headache but appears to be in no distress whatsoever. Daughter agrees with my assessment. 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 Aspirin 325 mg daily Continue statin, note favorable lipid profile Accepted at [facility]. Insurance [facility] ongoing Subjective 8/10 headache Objective Vital Signs Date Time Temp Pulse Resp B/P (MAP) Pulse Ox O2 Delivery O2 Flow Rate FiO2 04/28/21 08:01 59 133/63 04/28/21 07:00 98.5 16 100 Room Air 98.5 Intake and Output 04/28/21 07:00 Intake Total 1500 ml Output Total 400 ml Balance 1100 ml Intake Oral 1500 ml Output Urine Total 400 ml # Voids 3 PHYSICAL EXAM Still claims 8/10 headache, yet again is sitting up in bed eating full breakfast and appears to be in no acute distress Alert. Oriented to time, place and person. PERRL. EOMI. CN: no focal findings. Muscle tone: normal. Muscle strength: 4/5 DTR: 1+ Plantar reflex: flexor Gait: not examined in bed. Sensory exam: no abnormal findings. No cerebellar signs elicited. Review of Relevant I have reviewed the following items geoff (where applicable) has been applied. Labs Laboratory Tests Test 04/26/21 11:24 04/26/21 20:45 04/27/21 07:14 04/27/21 11:08 Glucose (Fingerstick) 108 mg/dL (70-99) 199 mg/dL (70-99) 85 mg/dL (70-99) 117 mg/dL (70-99) Test 04/27/21 16:14 04/27/21 20:19 04/28/21 07:27 Glucose (Fingerstick) 105 mg/dL (70-99) 160 mg/dL (70-99) 80 mg/dL (70-99) Laboratory Tests Test 04/27/21 11:08 04/27/21 16:14 04/27/21 20:19 04/28/21 07:27 Glucose (Fingerstick) 117 mg/dL (70-99) 105 mg/dL (70-99) 160 mg/dL (70-99) 80 mg/dL (70-99) Medications Current Medications Alteplase, Recombinant 7.5 ml @ 450 mls/hr 1X ONCE IV Last administered on 04/21/21at 13:34; Start 04/21/21 at 13:30; Stop 04/21/21 at 13:31; Status DC Alteplase, Recombinant 68 ml @ 68 mls/hr Q1H IV Last administered on 04/21/21at 13:38; Start 04/21/21 at 13:30; Stop 04/21/21 at 14:29; Status DC Sodium Chloride 50 ml @ 200 mls/hr 1X ONCE IV ; Start 04/21/21 at 14:30; Stop 04/21/21 at 14:44; Status DC Labetalol HCl (Normodyne Iv Push) 10 mg PRN Q10MIN PRN IVP HYPERTENSION, 2ND CHOICE; Start 04/21/21 at 13:45 Nicardipine HCl 50 mg/Sodium Chloride 250 ml @ 25 mls/hr CONT PRN PRN IV HYPERTENSION; Start 04/21/21 at 13:45 Acetaminophen (Tylenol) 650 mg PRN Q6HRS PRN PO MILD PAIN / TEMP > 100.3'F Last administered on 04/24/21at 03:34; Start 04/21/21 at 13:45 Acetaminophen (Tylenol Supp) 650 mg PRN Q6HRS PRN [place] MILD PAIN / TEMP > 100.3'F; Start 04/21/21 at 13:45 Ondansetron HCl (Zofran) 4 mg PRN Q6HRS PRN IVP NAUSEA/VOMITING Last administered on 04/21/21at 14:34; Start 04/21/21 at 13:45 Sodium Chloride 1,000 ml @ 1,000 mls/hr 1X ONCE IV Last administered on 04/21/21at 14:53; Start 04/21/21 at 14:45; Stop 04/21/21 at 15:44; Status DC Lorazepam (Ativan Inj) 1 mg 1X ONCE IVP Last administered on 04/21/21at 14:57; Start 04/21/21 at 14:45; Stop 04/21/21 at 14:46; Status DC Hydralazine HCl (Apresoline Inj) 10 mg PRN Q4HRS PRN IVP HYPERTENSION, 1ST CHOICE; Start 04/21/21 at 15:00 Carvedilol (Coreg) 12.5 mg BIDWMEALS PO ; Start 04/21/21 at 17:00; Stop 04/22/21 at 17:36; Status DC Ferrous Sulfate (Feosol) 325 mg DAILY PO ; Start 04/22/21 at 09:00; Stop 04/22/21 at 18:44; Status DC Isosorbide Mononitrate (Imdur) 30 mg DAILY PO Last administered on 04/28/21at 08:00; Start 04/22/21 at 09:00 Citalopram Hydrobromide (CeleXA) 20 mg DAILY PO ; Start 04/22/21 at 09:00; Stop 04/22/21 at 18:44; Status DC Atorvastatin Calcium (Lipitor) 10 mg QHS PO Last administered on 04/27/21at 20:55; Start 04/21/21 at 21:00 Mirtazapine (Remeron) 30 mg QHS PO ; Start 04/21/21 at 21:00; Stop 04/22/21 at 17:36; Status DC Pantoprazole Sodium (Protonix) 40 mg DAILYAC PO ; Start 04/22/21 at 07:30; Stop 04/22/21 at 18:44; Status DC Verapamil HCl (Calan Sr) 240 mg DAILY PO ; Start 04/22/21 at 09:00; Stop 04/22/21 at 17:36; Status DC Insulin Glargine (Lantus Syringe) 10 unit QHS SQ Last administered on 04/27/21at 21:00; Start 04/21/21 at 21:00 Insulin Human Lispro (HumaLOG) 0-7 UNITS TIDWMEALS SQ Last administered on 04/25/21at 12:25; Start 04/21/21 at 17:00 Dextrose (Dextrose 50%-Water Syringe) 12.5 gm PRN Q15MIN PRN IV SEE COMMENTS; Start 04/21/21 at 15:00 Acetaminophen (Tylenol) 650 mg PRN Q6HRS PRN PO Headaches, Temp > 101.5'; Start 04/21/21 at 15:00; Status UNV Lorazepam (Ativan Inj) 0.5 mg PRN Q6HRS PRN IVP ANXIETY / AGITATION; Start 04/21/21 at 15:00 Lorazepam (Ativan) 1 mg PRN Q6HRS PRN PO ANXIETY / AGITATION Last administered on 04/25/21at 21:29; Start 04/21/21 at 15:00 Ondansetron HCl (Zofran) 4 mg PRN Q6HRS PRN IVP NAUSEA/VOMITING; Start 04/21/21 at 15:00; Status UNV Prochlorperazine Edisylate (Compazine) 5 mg PRN Q6HRS PRN IVP NAUSEA/VOMITING 2ND CHOICE; Start 04/21/21 at 15:00 Al Hydroxide/Mg Hydroxide (Mylanta Plus Xs) 30 ml PRN Q3HRS PRN PO HEARTBURN / GAS; Start 04/21/21 at 15:00 Calcium Carbonate/ Glycine (Tums) 500 mg PRN Q3HRS PRN PO HEARTBURN / GAS; Start 04/21/21 at 15:00 Zolpidem Tartrate (Ambien) 5 mg PRN QHS PRN PO INSOMNIA, MAY REPEAT IN 1HR Last administered on 04/27/21at 22:52; Start 04/21/21 at 15:00 Sodium Chloride (Normal Saline Flush) 3 ml QSHIFT PRN IV AFTER MEDS AND BLOOD DRAWS; Start 04/21/21 at 15:00 Morphine Sulfate (Morphine Sulfate) 2 mg PRN Q1HR PRN IV PAIN Last administered on 04/28/21at 06:21; Start 04/21/21 at 15:00 Magnesium Hydroxide (Milk Of Magnesia) 2,400 mg PRN Q12HR PRN PO CONSTIPATION; Start 04/21/21 at 15:00 Aspirin (Denis Aspirin) 325 mg DAILYWBKFT PO Last administered on 04/28/21at 07:59; Start 04/22/21 at 15:00 Carvedilol (Coreg) 25 mg BIDWMEALS PO Last administered on 04/28/21at 08:01; Start 04/22/21 at 18:15 Clopidogrel Bisulfate (Plavix) 75 mg DAILY PO Last administered on 04/28/21at 08:00; Start 04/23/21 at 09:00 Levothyroxine Sodium (Synthroid) 75 mcg DAILY06 PO Last administered on 04/28/21at 06:20; Start 04/23/21 at 10:15 Acetaminophen/ Aspirin/Caffeine (Excedrin Migraine) 1 tab PRN Q6HRS PRN PO MIGRAINE HEADACHE, 1ST CHOICE Last administered on 04/28/21at 04:13; Start 04/23/21 at 12:45 Dextrose/Sodium Chloride 500 ml @ 1,000 mls/hr Q30M IV ; Start 04/23/21 at 13:00; Stop 04/23/21 at 16:27; Status DC Acetaminophen/ Butalbital/ Caffeine (Fioricet) 1 tab PRN Q6HRS PRN PO MIGRAINE HEADACHE, 2ND CHOICE Last administered on 04/27/21at 14:46; Start 04/23/21 at 16:00 Active Scripts Active Reported Levothyroxine Sodium 75 Mcg Tablet 1 Tab PO DAILY Crestor (Rosuvastatin Calcium) 5 Mg Tablet 10 Mg PO HS Furosemide 20 Mg Tablet 1 Tab PO DAILY Clopidogrel (Clopidogrel Bisulfate) 75 Mg Tablet 1 Tab PO DAILY Carvedilol 25 Mg Tablet 25 Mg PO BIDWMEALS Aspirin 81 Mg Tab.chew 1 Tab PO DAILY Isosorbide Mononitrate Er (Isosorbide Mononitrate) 30 Mg Tab.er.24h 1 Tab PO DAILY Aspirin 81 Mg Tab.chew 1 Tab PO DAILY Lisinopril 5 Mg Tablet 1 Tab PO DAILY Vitals/I & O Vital Sign - Last 24 Hours 04/27/21 04/27/21 04/27/21 04/27/21 10:12 15:00 16:51 16:51 Temp 98.8 98.4 98.8 98.4 Pulse 59 59 61 Resp 16 16 B/P (MAP) 107/53 (71) 116/60 (78) 116/60 Pulse Ox 94 97 97 O2 Delivery Room Air Room Air Room Air 04/27/21 04/27/21 04/27/21 04/27/21 17:21 19:30 19:58 21:29 Temp 97.5 97.5 Pulse 59 Resp 20 18 B/P (MAP) 166/77 (106) Pulse Ox 97 97 97 O2 Delivery Room Air Room Air Room Air Room Air 04/27/21 04/27/21 04/28/21 04/28/21 21:59 22:35 02:50 06:21 Temp 98.5 98.5 98.5 98.5 Pulse 63 59 Resp 18 18 20 18 B/P (MAP) 139/71 (93) 133/63 (86) Pulse Ox 98 98 98 98 O2 Delivery Room Air Room Air Room Air Room Air 04/28/21 04/28/21 04/28/21 04/28/21 06:51 07:00 08:00 08:01 Temp 98.5 98.5 Pulse 59 67 59 Resp 18 16 B/P (MAP) 126/60 (82) 126/60 133/63 Pulse Ox 98 100 O2 Delivery Room Air Room Air Intake and Output 04/27/21 04/27/21 04/28/21 15:00 23:00 07:00 Intake Total 600 ml 600 ml 300 ml Output Total 100 ml 300 ml Balance 600 ml 500 ml 0 ml Justicifation of Admission Dx: Justifications for Admission: Justification of Admission Dx: Yes Stroke - Ischemic: Stroke-Ischemic BO MARROQUIN MD Apr 28, 2021 09:05
[2021-04-28 11:08] VITALS: BP 124/67
--- NOTE | 2021-04-28 12:25 | NUR ---
SS following up with discharge planning. SS reviewed pt chart and discussed with pt RN. Pt is currently on room air. COVID19 negative. PT/OT recommended snf unit. Pt accepted at [facility], ; fax [phone]. Insurance authorization received. Discharge orders received and phoned and faxed to [facility]. Pt will discharge today and go to [facility] at [facility]. [facility] to provide transportation. Pt, pt's RN, and pt's daughter notified.
== END 2021-04-28 14:05 | DRG 61 ==
LOC: ER 12:31 → ED HOLD 13:25 → 6 SOUTH 04-22 14:21
PROVIDERS: ADMIT Family Medicine; ATTEND Family Medicine
DX: I63.9 Cerebral infarction, unspecified (principal); N17.0 Acute kidney failure with tubular necrosis; G81.91 Hemiplegia, unspecified affecting right dominant side; E11.51 Type 2 diabetes mellitus with diabetic peripheral angiopathy without gangrene; E11.65 Type 2 diabetes mellitus with hyperglycemia; E78.00 Pure hypercholesterolemia, unspecified; E78.5 Hyperlipidemia, unspecified; F41.9 Anxiety disorder, unspecified; F44.9 Dissociative and conversion disorder, unspecified; F80.81 Childhood onset fluency disorder; I10 Essential (primary) hypertension; I25.10 Atherosclerotic heart disease of native coronary artery without angina pectoris; I69.320 Aphasia following cerebral infarction; K21.9 Gastro-esophageal reflux disease without esophagitis; M19.90 Unspecified osteoarthritis, unspecified site; R29.710 NIHSS score 10; Z79.02 Long term (current) use of antithrombotics/antiplatelets; Z82.3 Family history of stroke; Z95.0 Presence of cardiac pacemaker; Z95.5 Presence of coronary angioplasty implant and graft; F32.9 Major depressive disorder, single episode, unspecified; Z20.822 Contact with and (suspected) exposure to COVID-19; Z66 Do not resuscitate; I25.2 Old myocardial infarction
CPT/HCPCS: 36415; 70450; 80048; 80053; 80061; 81001; 82962; 83735; 84484; 85007; 85025; 85610; 85730; 87426; 93005; 93880; J1815; J2060; J2270; J2405; J2997; J7030; J7042; U0003; U0005; 92526-GN; 92610-GN; 97110-GP; 97116-GP; 97530-GO; 97530-GP; 99291-25; G0378